=== PATIENT | female | born 1935 | race Caucasian/White ===

== ENCOUNTER 2017-11-02 13:48 | Observation (INO) | payer MEDICARE, OTHER, SELFPAY ==
[2017-11-02] VITALS (8 sets, daily range): BP systolic 122–206; BP diastolic 69–138; PULSE 85–117; RESP 12–22; TEMP 36.9–37.1; O2SAT 95–98; BMI 30.9
--- NOTE | 2017-11-02 13:49 | ED.WEAKNESS ---
HPI - Weakness General Chief complaint: Fall Stated complaint: GLF Time Seen by Provider: 11/02/17 13:49 Source: patient, family and EMS Mode of arrival: EMS History of Present Illness HPI Narrative: The patient is a 82-year-old female who lives alone. She was found all on the floor this morning by neighbor. She said she slipped out of bed last night literally she was she is trying to stand up and then her feet went out from under her she slid down the bed. She played different unknown amount of time. Her back is hurting. She has no other complaints. She is on Pradaxa and does have AFib and is currently in AFib. She denies hitting her head there is no sign of head trauma. She is able to move all of her extremities. MD Complaint: generalized weakness Related Data Home Medications Medication Instructions Recorded Confirmed acetaminophen [Tylenol Extra 500 mg PO Q6H PRN #0 01/05/16 11/02/17 Strength] diltiazem HCl [Cartia XT] 120 mg PO Q DAY #0 01/05/16 11/02/17 lutein 20 mg PO Q DAY #0 01/05/16 11/02/17 melatonin 5 mg PO HS PRN #0 01/05/16 11/02/17 oxybutynin chloride 5 mg PO BID #0 01/05/16 11/02/17 rivaroxaban [Xarelto] 20 mg PO Q DAY #0 01/05/16 11/02/17 vitamins A,C,K-aumq-eunpok 1 mg PO Q DAY #0 01/05/16 11/02/17 [PreserVision AREDS] [PROBIOTIC] 1 cap PO QDAY #0 06/11/17 Previous Rx's Medication Instructions Recorded losartan 50 mg PO QDAY #30 tab 01/07/16 acetaminophen 325 mg PO Q4HP PRN #30 tab 06/14/17 insulin aspart U-100 [Novolog 10 u SQ TIDAC #1 vial 06/14/17 PenFill U-100 Insulin] insulin glargine [Lantus U-100 25 u SQ HS #1 vial 06/14/17 Insulin] venlafaxine 150 mg PO QDAY #30 cap 06/14/17 Allergies Allergy/AdvReac Type Severity Reaction Status Date / Time Sulfa (Sulfonamide Allergy Intermediate RASH, Verified 11/02/17 13:50 Antibiotics) VOMITING [SULFA (SULFONAMIDE ANTIBIOTICS)] tramadol [TRAMADOL] AdvReac Intermediate DIZZYNESS Verified 11/02/17 13:50 Review of Systems Review of Systems All systems reviewed & are unremarkable except as noted in HPI and below Constitutional Denies daytime sleepiness, Denies difficulty sleeping, Reports fatigue and Denies frequent falls Cardiovascular Reports system reviewed and no additional complaints, except as docu, Denies syncope and Denies lightheadedness Gastrointestinal Gastrointestinal: Denies abdominal pain, Denies change in bowel habits, Denies diarrhea, Denies nausea and Denies vomiting Musculoskeletal Reports back pain, Denies muscle weakness, Denies numbness and Denies tingling Neurologic Denies syncope, Denies frequent falls, Denies numbness and Denies tingling Endocrine Reports fatigue PFSH Medical History Atrial fibrillation (Acute) Diabetes (Acute) Social History household members: none Exam Initial Vital Signs Initial Vital Signs: Vital Signs Temperature 98.7 F 11/02/17 13:50 Pulse Rate 111 H 11/02/17 13:50 Respiratory Rate 12 11/02/17 13:50 Blood Pressure 155/89 H 11/02/17 13:50 Pulse Oximetry 98 11/02/17 13:50 Const General: cooperative Nutritional Appearance: overweight Orientation: alert, awake and oriented x3 Chest Chest: normal inspection of the chest Resp Effort & Inspection: normal respiratory effort, able to speak in complete sentences, no respiratory distress and no use of accessory muscles Auscultation: clear to auscultation bilaterally, no rales, no rhonchi and no wheezes Cardio Rate: tachycardic Rhythm: abnormal rhythm irregularly irregular Heart Sounds: S1 normal and S2 normal GI Inspection: non-distended Palpation: soft, no hepatosplenomegaly, No guarding, No pulsatile mass and No tender Auscultation: normal bowel sounds Back/Spine/Pelvis Thoracic/Lumbar Spine: thoracic spinal tenderness Skin General: no rashes or lesions noted, No jaundice and No petechiae Other: Contusion noted on her right arm Neuro General: alert and awake Cranial Nerves: CN's II-XI intact bilaterally Extrem General: normal to inspection Left upper extremity: normal to inspection Right lower extremity: normal to inspection Left lower extremity: normal to inspection Course Orders Ordered: ED Orders 11/02/17 13:58 XR thoracic spine 3V Stat 11/02/17 14:00 CT head/brain wo con Stat 11/02/17 14:20 Complete Blood Count AUTO DIFF Stat Comprehensive Metabolic Panel Stat Lactate (Lactic Acid) Stat Partial Thromboplastin Time Stat Prothrombin Time INR Stat Troponin with CK Cardiac Panel Stat 11/02/17 15:59 Urinalysis and Microscopic Stat 11/02/17 16:09 Consult to Physical Therapy Evaluate & Treat 11/02/17 16:54 Education, smoking cessation ONGOING Acetaminophen (Tylenol) 325 mg PO Q4H PRN PRN Reason: Pain, Mild Diltiazem HCl (Cardizem Cd) 120 mg PO DAILY DULCE Sodium Chloride (Normal Saline 0.9%) 1,000 mls @ 85 mls/hr IV CONT DULCE Insulin Aspart (Novolog Flexpen) 10 unit SUBCUT AC DULCE Insulin Glargine (Lantus Solostar (Pen)) 25 unit SUBCUT BEDTIME DULCE Losartan Potassium (Cozaar) 50 mg PO DAILY DULCE Melatonin (Melatonin) 6 mg PO BEDTIME PRN PRN Reason: Sleep Oxybutynin (Ditropan) 5 mg PO BID DULCE Rivaroxaban (Xarelto) 20 mg PO DAILY DULCE Venlafaxine HCl (Effexor Xr) 150 mg PO DAILY DULCE Discontinued Medications Diltiazem HCl (Cardizem) 10 mg IV NOW ONE Stop: 11/02/17 14:53 Last Admin: 11/02/17 15:10 Dose: 10 mg Diltiazem HCl (Cardizem Cd) 240 mg PO NOW ONE Stop: 11/02/17 16:59 Sodium Chloride (Normal Saline 0.9%) 1,000 mls @ 1,000 mls/hr IV BOLUS ONE Stop: 11/02/17 16:25 Last Infusion: 11/02/17 16:47 Dose: 0 mls/hr Admin: 11/02/17 15:29 Dose: 1,000 mls/hr Non-Formulary Medication (Lutein [Lutein]) 20 mg PO Q DAY DULCE Non-Formulary Medication (Acetaminophen [Tylenol Extra Strength]) 500 mg PO Q6H PRN PRN Reason: Pain (Scale Score 1-3) Vital Signs - 8 hr 11/02/17 13:50 11/02/17 14:11 11/02/17 15:10 Temperature 98.7 F Pulse Rate 111 H 113 H 92 H Respiratory Rate 12 19 16 Blood Pressure 155/89 H 187/90 H Blood Pressure [Left Arm] 155/93 H 172/138 H Pulse Oximetry 98 97 98 11/02/17 15:26 11/02/17 16:07 11/02/17 17:55 Temperature 98.5 F Pulse Rate 85 117 H 106 H Respiratory Rate 22 18 Blood Pressure 198/82 H Blood Pressure [Left Arm] 122/69 H 206/106 H Pulse Oximetry 95 MDM - Weakness Lab Data Attestation: I reviewed the patient's lab results. Result diagrams: 11/02/17 14:20 11/02/17 14:20 Lab Results 11/02/17 11/02/17 11/02/17 Range/Units 14:20 14:20 14:20 WBC 11.2 H (4.5-11.0) X10^3/uL RBC 5.00 (4.0-5.2) X10^6/uL Hgb 15.3 (12.0-16.0) g/dL Hct 46.2 H (36-46) % MCV 92.3 (80-100) fL MCH 30.7 (26-34) PG MCHC 33.2 (30-36) % RDW 14.7 (11.6-14.8) % Plt Count 147 L (150-400) X10^3/uL Neut % (Auto) 87.8 H (50-75) % Lymph % (Auto) 6.0 L (25-40) % [place] % (Auto) 6.0 (3-14) % Eos % (Auto) 0.0 L (2-4) % Baso % (Auto) 0.2 (0-2) % Neut # (Auto) 9800 H (3800-8653) /uL PT 13.8 H (10.1-12.7) SECONDS INR 1.3 (0.9-1.3) APTT 31 (26.4-36.2) SECONDS Sodium 137 (137-145) mmol/L Potassium 3.9 (3.4-5.1) mmol/L Chloride 92 L (98-107) mmol/L Carbon Dioxide 30 (22-32) mmol/L BUN 18 H (7-17) mg/dL Creatinine 0.60 (0.52-1.04) mg/dL Estimated GFR > 60.0 (>60) mL/min BUN/Creatinine Ratio 30.0 H (6-22) Glucose 454 H (80-110) mg/dL Lactate (0.7-2.1) mmol/L Calcium 9.9 (8.4-10.2) mg/dL Total Bilirubin 1.2 (0.2-1.3) mg/dL AST 84 H (14-36) IU/L ALT 121 H (9-52) IU/L Alkaline Phosphatase 106 (38-126) U/L Total Creatine Kinase 349 H (30-135) U/L CK-MB (CK-2) 2.27 (<2.37) ng/mL CK-MB (CK-2) Rel Index 0.7 L (1.5-5.0) % Troponin I 0.014 (0.01-0.034) ng/mL Total Protein 7.7 (6.3-8.2) g/dL Albumin 4.6 (3.5-5.0) g/dL Globulin 3.1 (1.7-4.1) g/dL Albumin/Globulin Ratio 1.5 (1.0-2.8) Urine Color Urine Appearance Urine pH (4.5-8.0) Ur Specific Sisters (1.000-1.035) Urine Protein (Negative) Urine Glucose (UA) (Normal) g/dL Urine Ketones (NEGATIVE) Urine Occult Blood (Negative) Urine Nitrate (Negative) Urine Bilirubin (NEGATIVE) Urine Urobilinogen (0.2) E.U./dL Ur Leukocyte Esterase (NEGATIVE) Urine RBC (0-5/HPF) Urine WBC (0-5/HPF) Ur Squamous Epith Cells Urine Bacteria (None) Ur Culture Indicated? Micro UA Comment 11/02/17 11/02/17 Range/Units 14:20 15:59 WBC (4.5-11.0) X10^3/uL RBC (4.0-5.2) X10^6/uL Hgb (12.0-16.0) g/dL Hct (36-46) % MCV (80-100) fL MCH (26-34) PG MCHC (30-36) % RDW (11.6-14.8) % Plt Count (150-400) X10^3/uL Neut % (Auto) (50-75) % Lymph % (Auto) (25-40) % [place] % (Auto) (3-14) % Eos % (Auto) (2-4) % Baso % (Auto) (0-2) % Neut # (Auto) (1073-0819) /uL PT (10.1-12.7) SECONDS INR (0.9-1.3) APTT (26.4-36.2) SECONDS Sodium (137-145) mmol/L Potassium (3.4-5.1) mmol/L Chloride (98-107) mmol/L Carbon Dioxide (22-32) mmol/L BUN (7-17) mg/dL Creatinine (0.52-1.04) mg/dL Estimated GFR (>60) mL/min BUN/Creatinine Ratio (6-22) Glucose (80-110) mg/dL Lactate 1.9 (0.7-2.1) mmol/L Calcium (8.4-10.2) mg/dL Total Bilirubin (0.2-1.3) mg/dL AST (14-36) IU/L ALT (9-52) IU/L Alkaline Phosphatase (38-126) U/L Total Creatine Kinase (30-135) U/L CK-MB (CK-2) (<2.37) ng/mL CK-MB (CK-2) Rel Index (1.5-5.0) % Troponin I (0.01-0.034) ng/mL Total Protein (6.3-8.2) g/dL Albumin (3.5-5.0) g/dL Globulin (1.7-4.1) g/dL Albumin/Globulin Ratio (1.0-2.8) Urine Color Yellow Urine Appearance Clear Urine pH 6.0 (4.5-8.0) Ur Specific Sisters 1.010 (1.000-1.035) Urine Protein 1+ H (Negative) Urine Glucose (UA) 2+ (Normal) g/dL Urine Ketones 2+ H (NEGATIVE) Urine Occult Blood 3+ H (Negative) Urine Nitrate Negative (Negative) Urine Bilirubin Negative (NEGATIVE) Urine Urobilinogen 0.2 (0.2) E.U./dL Ur Leukocyte Esterase Negative (NEGATIVE) Urine RBC 10-30/hpf H (0-5/HPF) Urine WBC 0-1/hpf (0-5/HPF) Ur Squamous Epith Cells 0-1 /hpf Urine Bacteria None seen (None) Ur Culture Indicated? Cult not indicated Micro UA Comment Not Reportable Imaging Data CT scan - head: Radiologist's impression: PROCEDURE: CT HEAD/BRAIN WO CON INDICATIONS: found down on Xarelto TECHNIQUE: Noncontrast 4.5 mm thick angled axial sections acquired from the foramen magnum to the vertex, with coronal and sagittal reformats. For radiation dose reduction, the following was used: automated exposure control, adjustment of mA and/or kV according to patient size. COMPARISON: [facility], CT, HEAD WITHOUT CONTRAST, 06/11/2017, 14:40. [facility], CT, HEAD WITHOUT CONTRAST, 03/22/2016, 20:13. [facility], MR, STROKE PROTOCOL, 01/06/2016, 12:57. FINDINGS: Image quality: Excellent. CSF spaces: Basal cisterns are patent. No extra-axial fluid collections. The ventricles are symmetric in size and shape. Brain: No intracranial bleeds or masses. There is cerebral volume loss for age, with resultant ventricular and sulcal prominence. There are periventricular and deep white matter chronic small vessel ischemic changes. Old basal ganglia small lacunar infarcts versus perivascular spaces are stable. There is intracranial internal carotid artery and vertebral artery atherosclerosis. Skull and face: Calvarium and visualized facial bones appear intact, without suspicious lesions. Sinuses: Visualized sinuses and mastoids are clear. IMPRESSION: No acute intracranial disease process. No intracranial hemorrhage. Dictated by: Yanique Schulte MD, PhD on 11/02/2017 at 14:58 thoracic spine: Radiologist's impression: ECG Data Attestation: I personally reviewed and interpreted this ECG as follows: Prior ECG tracings: available for review Interpretation: a.fib rate 111 MDM Narrative Medical decision making narrative: Patient's [id number] is there at bedside now. She says the patient actually hallucinating which she is she is seeing green things on the ceiling. She says this is not her normal mental status. She remains in AFib but her rate is much better controlled after diltiazem. She is evaluated by physical therapy confirming that she is extremely weak. She lives alone they have [place] [facility] however no range meds have been made. Family understands that she will not be getting into a [place] [facility] home even staying in the hospital 1 night. Her labs are within normal limits. No sign of rhabdomyolysis or infection. Dr. Alva has accepted to observation. Discharge Plan Departure Patient Disposition: Admitted as Observation Clinical Impression: Acute metabolic encephalopathy, Atrial fibrillation Discharge Date/Time: 11/02/17 17:48 Interventions: ED Discharge Assessment Last Done: 11/02/17 17:48 Admit Date/Time: 11/02/17 16:48 Admit Provider: Sudhir Alva
--- NOTE | 2017-11-02 13:58 | DI.RAD.S_ITS ---
PROCEDURE: XR THORACIC SPINE 3V INDICATIONS: Pain TECHNIQUE: 3 views of the thoracic spine were acquired. COMPARISON: None. FINDINGS: Bones: No fractures or dislocations. No suspicious bony lesions. 12 pairs of ribs are noted, and appear intact where visualized. Spine degenerative disease and facet arthropathy noted. Soft tissues: No paravertebral stripe thickening. Cholecystectomy clips. IMPRESSION: No fracture. No acute osseous lesion. If there are persistent symptoms or continued clinical suspicion for pathology, then MRI should be considered for further evaluation. Dictated by: Yanique Schulte MD, PhD on 11/02/2017 at 14:57 Approved by: Yanique Schulte MD, PhD on 11/02/2017 at 14:57
--- NOTE | 2017-11-02 14:00 | DI.CT.S_ITS ---
PROCEDURE: CT HEAD/BRAIN WO CON INDICATIONS: found down on Xarelto TECHNIQUE: Noncontrast 4.5 mm thick angled axial sections acquired from the foramen magnum to the vertex, with coronal and sagittal reformats. For radiation dose reduction, the following was used: automated exposure control, adjustment of mA and/or kV according to patient size. COMPARISON: [facility], CT, HEAD WITHOUT CONTRAST, 06/11/2017, 14:40. [facility], CT, HEAD WITHOUT CONTRAST, 03/22/2016, 20:13. [facility], MR, STROKE PROTOCOL, 01/06/2016, 12:57. FINDINGS: Image quality: Excellent. CSF spaces: Basal cisterns are patent. No extra-axial fluid collections. The ventricles are symmetric in size and shape. Brain: No intracranial bleeds or masses. There is cerebral volume loss for age, with resultant ventricular and sulcal prominence. There are periventricular and deep white matter chronic small vessel ischemic changes. Old basal ganglia small lacunar infarcts versus perivascular spaces are stable. There is intracranial internal carotid artery and vertebral artery atherosclerosis. Skull and face: Calvarium and visualized facial bones appear intact, without suspicious lesions. Sinuses: Visualized sinuses and mastoids are clear. IMPRESSION: No acute intracranial disease process. No intracranial hemorrhage. Dictated by: Yanique Schulte MD, PhD on 11/02/2017 at 14:58 Approved by: Yanique Schulte MD, PhD on 11/02/2017 at 15:00
[2017-11-02 14:26] LABS: Add Manual Diff / Slide Review NO; Basophils Percent Auto 0.2 % (0-2); Hematocrit 46.2 % (36-46); Hemoglobin 15.3 g/dL (12.0-16.0); Mean Corpuscular HGB Conc 33.2 % (30-36); Mean Corpuscular Hemoglobin 30.7 PG (26-34); Mean Corpuscular Volume 92.3 fL (80-100); Neutrophils Absolute Auto 9800 /uL (3000-5900); Neutrophils Percent Auto 87.8 % (50-75); Platelet Count 147 X10^3/uL (150-400); Red Cell Distribution Width 14.7 % (11.6-14.8); White Blood Cell Count 11.2 X10^3/uL (4.5-11.0)
[2017-11-02 14:32] LABS: INR 1.3 (0.9-1.3); Prothrombin Time 13.8 SECONDS (10.1-12.7)
[2017-11-02 14:35] LABS: Lactate (Lactic Acid) 1.9 mmol/L (0.7-2.1); PTT Partial Thromboplastin Tim 31 SECONDS (26.4-36.2)
[2017-11-02 14:37] LABS: Alanine Aminotransferase 121 IU/L (9-52); Albumin 4.6 g/dL (3.5-5.0); Albumin Globulin Ratio 1.5 (1.0-2.8); Alkaline Phosphatase 106 U/L (38-126); Aspartate Aminotransferase 84 IU/L (14-36); Bilirubin Total 1.2 mg/dL (0.2-1.3); Blood Urea Nitrogen 18 mg/dL (7-17); Calcium 9.9 mg/dL (8.4-10.2); Carbon Dioxide 30 mmol/L (22-32); Chloride 92 mmol/L (98-107); Creatine Kinase 349 U/L (30-135); Estimated Glomerular Filt Rate > 60.0 mL/min (>60); Globulin 3.1 g/dL (1.7-4.1); Glucose 454 mg/dL (80-110); HEMOLYSIS 15 (0-50); Potassium 3.9 mmol/L (3.4-5.1); Sodium 137 mmol/L (137-145); Total Protein 7.7 g/dL (6.3-8.2)
[2017-11-02 14:48] LABS: Troponin I 0.014 ng/mL (0.01-0.034)
[2017-11-02 14:52] LABS: CKMB % Relative Index 0.7 % (1.5-5.0); Creatine Kinase MB 2.27 ng/mL (<2.37)
[2017-11-02] MEDS: dilTIAZem 25 MG/5 ML SDV 10 MG IV (15:10)
[2017-11-02] MEDS: SODIUM CHLORIDE 0.9% 1,000 ML 1000 ML IV (15:29)
[2017-11-02 16:02] LABS: Bacteria Urine None Seen
[2017-11-02 16:04] LABS: Appearance Urine UA CLEAR; Bilirubin Urine UA NEGATIVE (NEGATIVE); Color Urine UA YELLOW; Glucose Urine UA 2+ g/dL (Normal); Ketones Urine UA 2+ (NEGATIVE); Leukocyte Esterase Urine UA NEGATIVE (NEGATIVE); Nitrite Urine UA Negative (Negative); Occult Blood Urine UA 3+ (Negative); Protein Urine UA 1+ (Negative); Urobilinogen Urine UA 0.2 E.U./dL (0.2)
[2017-11-02 16:10] LABS: Culture Indicated Urine Cult Not Indicated; RBC Urine 10-30/HPF (0-5/HPF); Squamous Epithelial Cell Urine 0-1 /HPF; WBC Urine 0-1/HPF (0-5/HPF)
--- NOTE | 2017-11-02 17:02 | PT.IIE ---
Physical Therapy Inpatient Evaluation/Re-Eval M1 PT/OT-IP Prior Functional Status Start: 11/02/17 16:49 Freq: Status: Active Protocol: Document 11/02/17 16:49 AB (Rec: 11/02/17 17:02 AB [id number]) Medical Review Prior Functional Status Medical History Reviewed Yes Mobility and Gait per daughter, pt is somewhat independent with mobility using a 4WW for ambulation. stated that pt needs help but lives alone is an independent living facility. Social History Household Members none Living Arrangements Apartment/Condo Number of Floors (Floors) One Floor Number of Stairs To Enter/Railing? pt lives at [facility] independent living facility without steps to enter. 2 meals are provided but pt fixes her own breakfast. Home Environment Walk in Shower Home Equipment Four Wheel Walker Raised Toilet Seat w/Armrests Shower Seat with Backrest Employment Status Retired Additional Social History Comment daughter stated that she calls her to check on her but does not come to her apartment that often M2 PT-IP Current Condition Start: 11/02/17 16:49 Freq: Status: Active Protocol: Document 11/02/17 16:49 AB (Rec: 11/02/17 17:02 AB [id number]) Physical Therapy Current Condition Current Condition Evaluation Date 11/02/17 Treatment Diagnosis GLF Onset Date 11/02/17 Precautions Other Precautions falls M3 PT-IP Subjective Start: 11/02/17 16:49 Freq: Status: Active Protocol: Document 11/02/17 16:49 AB (Rec: 11/02/17 17:02 AB [id number]) Subjective Physical Therapy Visit Type Type Initial Evaluation Visit Start Time 16:23 Visit Stop Time 16:50 Total Visit Minutes 28 Number of LITERACY COACH Visits 0 Physical Therapy Visit Comments Patient Comments I feel shaky Patient/Caregiver Goals stated that pt cannot go home by herself Therapy Pain Assessment Pain Present Pain Present Denied Pain M4 PT-IP Mobility and Gait Start: 11/02/17 16:49 Freq: Status: Active Protocol: Document 11/02/17 16:49 AB (Rec: 11/02/17 17:02 AB [id number]) PT-Bed Mobility Assessment Supine to Sit Supine to Sit Maximum Assistance Sit to Supine Sit to Supine Maximum Assistance 2 Person Assistance Scooting Scooting to Edge of Bed Maximum Assistance Scooting Up and Down in Bed Maximum Assistance Bed Transfer Assessment Comments Bed Transfer Comments pt required mod A for sit to stand but max A for standing to sitting for controlled descent Gait Assessment Comments Gait Comments attempted ambulation but pt unable to complete. instructed pt to do marching in place and pt was able to lift RLE but with attempting to lift LLE, pt with increase body shaking and needed to sit back down requiring max A for controlled descent. PT-Balance Assessment Sitting Balance and Reactions Static Sitting Balance Ability Good Dynamic Sitting Balance Ability Good Standing Balance and Reactions Static Standing Balance Ability Fair Dynamic Standing Balance Ability Poor M5 PT-IP Objective Assessments Start: 11/02/17 16:49 Freq: Status: Active Protocol: Document 11/02/17 16:49 AB (Rec: 11/02/17 17:02 AB [id number]) Orientation Orientation/Cognition Level of Alertness Alert Orientation Name Year Safety Awareness Decreased Safety Awareness Memory Description Short Term Impaired Snf Impaired Strength Lower Extremity Strength Assessment Bilaterally Impaired Hip 4-/5 Knee 4-/5 Ankle 4-/5 M6 PT-IP Treatment Start: 11/02/17 16:49 Freq: Status: Active Protocol: Document 11/02/17 17:02 AB (Rec: 11/02/17 17:02 AB [id number]) Physical Therapy Treatment Education Education Provided Safety M7 PT-IP Assessment and Plan Start: 11/02/17 16:49 Freq: Status: Active Protocol: Document 11/02/17 16:49 AB (Rec: 11/02/17 17:02 AB [id number]) PT Summary Assessment and Plan Potential Rehabilitation Potential Fair Status of Condition at Evaluation Evolving Summary Impairments Pain ROM Strength Balance Coordination Sensation Tone Cognition Bed Mobility Transfers Gait Activity Tolerance Assessment Summary PT eval received from ER to assess safe d/c home. pt at this time is unable to ambulate and requires max A for mobility. pt is not safe to go home at this time. Goals Bed Mobility Goal Standby Assistance Transfer Goal Standby Assistance Gait Goal Standby Assistance Frequency of Treatment Frequency Of Treatment Twice a Day Treatment Plan Physical Therapy Treatment Plan Bed Mobility Training Transfer Training Gait Training Therapeutic Exercise Balance Retraining Post Op Education Discharge Planning Hot or Cold Pack Neuromuscular Re-ed Coordination Retraining Manual Therapy Recommendations To Nursing Amount of Assist Needed 2 Person Assist Discharge Recommendations PT Discharge Recommendations SNF Rehab Provider Visit Care Team Role Provider Type Ingrid Mcguire DO Emergency Provider Physician Specialty: Emergency Medicine Sudhir Alva MD Admit Provider Physician Attending Provider Specialty: Internal Medicine
--- NOTE | 2017-11-02 18:23 | ED_ITS ---
HPI - Weakness General Chief complaint: Fall Stated complaint: GLF Time Seen by Provider: 11/02/17 13:49 Source: patient, family and EMS Mode of arrival: EMS History of Present Illness HPI Narrative: The patient is a 82-year-old female who lives alone. She was found all on the floor this morning by neighbor. She said she slipped out of bed last night literally she was she is trying to stand up and then her feet went out from under her she slid down the bed. She played different unknown amount of time. Her back is hurting. She has no other complaints. She is on Pradaxa and does have AFib and is currently in AFib. She denies hitting her head there is no sign of head trauma. She is able to move all of her extremities. MD Complaint: generalized weakness Related Data Home Medications Medication Instructions Recorded Confirmed acetaminophen [Tylenol Extra 500 mg PO Q6H PRN #0 01/05/16 11/02/17 Strength] diltiazem HCl [Cartia XT] 120 mg PO Q DAY #0 01/05/16 11/02/17 lutein 20 mg PO Q DAY #0 01/05/16 11/02/17 melatonin 5 mg PO HS PRN #0 01/05/16 11/02/17 oxybutynin chloride 5 mg PO BID #0 01/05/16 11/02/17 rivaroxaban [Xarelto] 20 mg PO Q DAY #0 01/05/16 11/02/17 vitamins A,C,Z-yleg-ydythl 1 mg PO Q DAY #0 01/05/16 11/02/17 [PreserVision AREDS] [PROBIOTIC] 1 cap PO QDAY #0 06/11/17 Previous Rx's Medication Instructions Recorded losartan 50 mg PO QDAY #30 tab 01/07/16 acetaminophen 325 mg PO Q4HP PRN #30 tab 06/14/17 insulin aspart U-100 [Novolog 10 u SQ TIDAC #1 vial 06/14/17 PenFill U-100 Insulin] insulin glargine [Lantus U-100 25 u SQ HS #1 vial 06/14/17 Insulin] venlafaxine 150 mg PO QDAY #30 cap 06/14/17 Allergies Allergy/AdvReac Type Severity Reaction Status Date / Time Sulfa (Sulfonamide Allergy Intermediate RASH, Verified 11/02/17 13:50 Antibiotics) VOMITING [SULFA (SULFONAMIDE ANTIBIOTICS)] tramadol [TRAMADOL] AdvReac Intermediate DIZZYNESS Verified 11/02/17 13:50 Review of Systems Review of Systems All systems reviewed & are unremarkable except as noted in HPI and below Constitutional Denies daytime sleepiness, Denies difficulty sleeping, Reports fatigue and Denies frequent falls Cardiovascular Reports system reviewed and no additional complaints, except as docu, Denies syncope and Denies lightheadedness Gastrointestinal Gastrointestinal: Denies abdominal pain, Denies change in bowel habits, Denies diarrhea, Denies nausea and Denies vomiting Musculoskeletal Reports back pain, Denies muscle weakness, Denies numbness and Denies tingling Neurologic Denies syncope, Denies frequent falls, Denies numbness and Denies tingling Endocrine Reports fatigue PFSH Medical History Atrial fibrillation (Acute) Diabetes (Acute) Social History household members: none Exam Initial Vital Signs Initial Vital Signs: Vital Signs Temperature 98.7 F 11/02/17 13:50 Pulse Rate 111 H 11/02/17 13:50 Respiratory Rate 12 11/02/17 13:50 Blood Pressure 155/89 H 11/02/17 13:50 Pulse Oximetry 98 11/02/17 13:50 Const General: cooperative Nutritional Appearance: overweight Orientation: alert, awake and oriented x3 Chest Chest: normal inspection of the chest Resp Effort & Inspection: normal respiratory effort, able to speak in complete sentences, no respiratory distress and no use of accessory muscles Auscultation: clear to auscultation bilaterally, no rales, no rhonchi and no wheezes Cardio Rate: tachycardic Rhythm: abnormal rhythm irregularly irregular Heart Sounds: S1 normal and S2 normal GI Inspection: non-distended Palpation: soft, no hepatosplenomegaly, No guarding, No pulsatile mass and No tender Auscultation: normal bowel sounds Back/Spine/Pelvis Thoracic/Lumbar Spine: thoracic spinal tenderness Skin General: no rashes or lesions noted, No jaundice and No petechiae Other: Contusion noted on her right arm Neuro General: alert and awake Cranial Nerves: CN's II-XI intact bilaterally Extrem General: normal to inspection Left upper extremity: normal to inspection Right lower extremity: normal to inspection Left lower extremity: normal to inspection Course Orders Ordered: ED Orders 11/02/17 13:58 XR thoracic spine 3V Stat 11/02/17 14:00 CT head/brain wo con Stat 11/02/17 14:20 Complete Blood Count AUTO DIFF Stat Comprehensive Metabolic Panel Stat Lactate (Lactic Acid) Stat Partial Thromboplastin Time Stat Prothrombin Time INR Stat Troponin with CK Cardiac Panel Stat 11/02/17 15:59 Urinalysis and Microscopic Stat 11/02/17 16:09 Consult to Physical Therapy Evaluate & Treat 11/02/17 16:54 Education, smoking cessation ONGOING Acetaminophen (Tylenol) 325 mg PO Q4H PRN PRN Reason: Pain, Mild Diltiazem HCl (Cardizem Cd) 120 mg PO DAILY DULCE Sodium Chloride (Normal Saline 0.9%) 1,000 mls @ 85 mls/hr IV CONT DULCE Insulin Aspart (Novolog Flexpen) 10 unit SUBCUT AC DULCE Insulin Glargine (Lantus Solostar (Pen)) 25 unit SUBCUT BEDTIME DULCE Losartan Potassium (Cozaar) 50 mg PO DAILY DULCE Melatonin (Melatonin) 6 mg PO BEDTIME PRN PRN Reason: Sleep Oxybutynin (Ditropan) 5 mg PO BID DULCE Rivaroxaban (Xarelto) 20 mg PO DAILY DULCE Venlafaxine HCl (Effexor Xr) 150 mg PO DAILY DULCE Discontinued Medications Diltiazem HCl (Cardizem) 10 mg IV NOW ONE Stop: 11/02/17 14:53 Last Admin: 11/02/17 15:10 Dose: 10 mg Diltiazem HCl (Cardizem Cd) 240 mg PO NOW ONE Stop: 11/02/17 16:59 Sodium Chloride (Normal Saline 0.9%) 1,000 mls @ 1,000 mls/hr IV BOLUS ONE Stop: 11/02/17 16:25 Last Infusion: 11/02/17 16:47 Dose: 0 mls/hr Admin: 11/02/17 15:29 Dose: 1,000 mls/hr Non-Formulary Medication (Lutein [Lutein]) 20 mg PO Q DAY DULCE Non-Formulary Medication (Acetaminophen [Tylenol Extra Strength]) 500 mg PO Q6H PRN PRN Reason: Pain (Scale Score 1-3) Vital Signs - 8 hr 11/02/17 13:50 11/02/17 14:11 11/02/17 15:10 Temperature 98.7 F Pulse Rate 111 H 113 H 92 H Respiratory Rate 12 19 16 Blood Pressure 155/89 H 187/90 H Blood Pressure [Left Arm] 155/93 H 172/138 H Pulse Oximetry 98 97 98 11/02/17 15:26 11/02/17 16:07 11/02/17 17:55 Temperature 98.5 F Pulse Rate 85 117 H 106 H Respiratory Rate 22 18 Blood Pressure 198/82 H Blood Pressure [Left Arm] 122/69 H 206/106 H Pulse Oximetry 95 MDM - Weakness Lab Data Attestation: I reviewed the patient's lab results. Result diagrams: 11/02/17 14:20 11/02/17 14:20 Lab Results 11/02/17 11/02/17 11/02/17 Range/Units 14:20 14:20 14:20 WBC 11.2 H (4.5-11.0) X10^3/uL RBC 5.00 (4.0-5.2) X10^6/uL Hgb 15.3 (12.0-16.0) g/dL Hct 46.2 H (36-46) % MCV 92.3 (80-100) fL MCH 30.7 (26-34) PG MCHC 33.2 (30-36) % RDW 14.7 (11.6-14.8) % Plt Count 147 L (150-400) X10^3/uL Neut % (Auto) 87.8 H (50-75) % Lymph % (Auto) 6.0 L (25-40) % [place] % (Auto) 6.0 (3-14) % Eos % (Auto) 0.0 L (2-4) % Baso % (Auto) 0.2 (0-2) % Neut # (Auto) 9800 H (3933-7676) /uL PT 13.8 H (10.1-12.7) SECONDS INR 1.3 (0.9-1.3) APTT 31 (26.4-36.2) SECONDS Sodium 137 (137-145) mmol/L Potassium 3.9 (3.4-5.1) mmol/L Chloride 92 L (98-107) mmol/L Carbon Dioxide 30 (22-32) mmol/L BUN 18 H (7-17) mg/dL Creatinine 0.60 (0.52-1.04) mg/dL Estimated GFR > 60.0 (>60) mL/min BUN/Creatinine Ratio 30.0 H (6-22) Glucose 454 H (80-110) mg/dL Lactate (0.7-2.1) mmol/L Calcium 9.9 (8.4-10.2) mg/dL Total Bilirubin 1.2 (0.2-1.3) mg/dL AST 84 H (14-36) IU/L ALT 121 H (9-52) IU/L Alkaline Phosphatase 106 (38-126) U/L Total Creatine Kinase 349 H (30-135) U/L CK-MB (CK-2) 2.27 (<2.37) ng/mL CK-MB (CK-2) Rel Index 0.7 L (1.5-5.0) % Troponin I 0.014 (0.01-0.034) ng/mL Total Protein 7.7 (6.3-8.2) g/dL Albumin 4.6 (3.5-5.0) g/dL Globulin 3.1 (1.7-4.1) g/dL Albumin/Globulin Ratio 1.5 (1.0-2.8) Urine Color Urine Appearance Urine pH (4.5-8.0) Ur Specific [place] (1.000-1.035) Urine Protein (Negative) Urine Glucose (UA) (Normal) g/dL Urine Ketones (NEGATIVE) Urine Occult Blood (Negative) Urine Nitrate (Negative) Urine Bilirubin (NEGATIVE) Urine Urobilinogen (0.2) E.U./dL Ur Leukocyte Esterase (NEGATIVE) Urine RBC (0-5/HPF) Urine WBC (0-5/HPF) Ur Squamous Epith Cells Urine Bacteria (None) Ur Culture Indicated? Micro UA Comment 11/02/17 11/02/17 Range/Units 14:20 15:59 WBC (4.5-11.0) X10^3/uL RBC (4.0-5.2) X10^6/uL Hgb (12.0-16.0) g/dL Hct (36-46) % MCV (80-100) fL MCH (26-34) PG MCHC (30-36) % RDW (11.6-14.8) % Plt Count (150-400) X10^3/uL Neut % (Auto) (50-75) % Lymph % (Auto) (25-40) % [place] % (Auto) (3-14) % Eos % (Auto) (2-4) % Baso % (Auto) (0-2) % Neut # (Auto) (4936-5559) /uL PT (10.1-12.7) SECONDS INR (0.9-1.3) APTT (26.4-36.2) SECONDS Sodium (137-145) mmol/L Potassium (3.4-5.1) mmol/L Chloride (98-107) mmol/L Carbon Dioxide (22-32) mmol/L BUN (7-17) mg/dL Creatinine (0.52-1.04) mg/dL Estimated GFR (>60) mL/min BUN/Creatinine Ratio (6-22) Glucose (80-110) mg/dL Lactate 1.9 (0.7-2.1) mmol/L Calcium (8.4-10.2) mg/dL Total Bilirubin (0.2-1.3) mg/dL AST (14-36) IU/L ALT (9-52) IU/L Alkaline Phosphatase (38-126) U/L Total Creatine Kinase (30-135) U/L CK-MB (CK-2) (<2.37) ng/mL CK-MB (CK-2) Rel Index (1.5-5.0) % Troponin I (0.01-0.034) ng/mL Total Protein (6.3-8.2) g/dL Albumin (3.5-5.0) g/dL Globulin (1.7-4.1) g/dL Albumin/Globulin Ratio (1.0-2.8) Urine Color Yellow Urine Appearance Clear Urine pH 6.0 (4.5-8.0) Ur Specific [place] 1.010 (1.000-1.035) Urine Protein 1+ H (Negative) Urine Glucose (UA) 2+ (Normal) g/dL Urine Ketones 2+ H (NEGATIVE) Urine Occult Blood 3+ H (Negative) Urine Nitrate Negative (Negative) Urine Bilirubin Negative (NEGATIVE) Urine Urobilinogen 0.2 (0.2) E.U./dL Ur Leukocyte Esterase Negative (NEGATIVE) Urine RBC 10-30/hpf H (0-5/HPF) Urine WBC 0-1/hpf (0-5/HPF) Ur Squamous Epith Cells 0-1 /hpf Urine Bacteria None seen (None) Ur Culture Indicated? Cult not indicated Micro UA Comment Not Reportable Imaging Data CT scan - head: Radiologist's impression: PROCEDURE: CT HEAD/BRAIN WO CON INDICATIONS: found down on Xarelto TECHNIQUE: Noncontrast 4.5 mm thick angled axial sections acquired from the foramen magnum to the vertex, with coronal and sagittal reformats. For radiation dose reduction, the following was used: automated exposure control, adjustment of mA and/or kV according to patient size. COMPARISON: [facility], CT, HEAD WITHOUT CONTRAST, 06/11/2017, 14:40. [facility], CT, HEAD WITHOUT CONTRAST, 03/22/2016, 20:13. [facility], MR, STROKE PROTOCOL, 01/06/2016, 12:57. FINDINGS: Image quality: Excellent. CSF spaces: Basal cisterns are patent. No extra-axial fluid collections. The ventricles are symmetric in size and shape. Brain: No intracranial bleeds or masses. There is cerebral volume loss for age , with resultant ventricular and sulcal prominence. There are periventricular and deep white matter chronic small vessel ischemic changes. Old basal ganglia small lacunar infarcts versus perivascular spaces are stable. There is intracranial internal carotid artery and vertebral artery atherosclerosis. Skull and face: Calvarium and visualized facial bones appear intact, without suspicious lesions. Sinuses: Visualized sinuses and mastoids are clear. IMPRESSION: No acute intracranial disease process. No intracranial hemorrhage. Dictated by: Yanique Schulte MD, PhD on 11/02/2017 at 14:58 thoracic spine: Radiologist's impression: ECG Data Attestation: I personally reviewed and interpreted this ECG as follows: Prior ECG tracings: available for review Interpretation: a.fib rate 111 MDM Narrative Medical decision making narrative: Patient's [id number] is there at bedside now. She says the patient actually hallucinating which she is she is seeing green things on the ceiling. She says this is not her normal mental status. She remains in AFib but her rate is much better controlled after diltiazem. She is evaluated by physical therapy confirming that she is extremely weak. She lives alone they have been trying to get her into [facility] however no range meds have been made. Family understands that she will not be getting into a [facility]p home even staying in the hospital 1 night. Her labs are within normal limits. No sign of rhabdomyolysis or infection. Dr. Alva has accepted to observation. Discharge Plan Departure Patient Disposition: Admitted as Observation Clinical Impression: Acute metabolic encephalopathy, Atrial fibrillation Discharge Date/Time: 11/02/17 17:48 Interventions: ED Discharge Assessment Last Done: 11/02/17 17:48 Admit Date/Time: 11/02/17 16:48 Admit Provider: Sudhir Alva
[2017-11-02] MEDS: VENLAFAXINE ER 75 MG CAP 150 MG PO (19:00)
[2017-11-02] MEDS: RIVAROXABAN 10 MG TABLET 20 MG PO (19:00)
[2017-11-02] MEDS: INSULIN ASPART 100 UNIT/ML INSULN PEN 10 UNIT SUBCUT (19:00)
[2017-11-02] MEDS: LOSARTAN 50 MG TABLET PO (19:00)
[2017-11-02] MEDS: dilTIAZem CD 240 MG CAP PO (19:00)
--- NOTE | 2017-11-02 20:38 | PC.NURSE ---
1814- Pt arrived to room 219 from ED via stretcher. Pt resides at [facility], where pt had a GLF next ot pt's bed. Pt sat unattended for a significant time, before found and brought to ED. Wearing brief for inc of bladder. 2 assist with gait belt and FWW to [facility] to have BM. Pt demonstrated unsteady gait and generalized weakness. A to self, family member, age, and . At times will verbalize seeing individual and other objects that aren't there. Telemetry in place for Hx A-Fib. 95% RA, LS clear/dim, denies SOB. Denies nausea, BT+, flatus+, XL BM this shift. Right elbow with contusion and Lg purple bruise, right middle finger with bruise, bilat knees arthritis. Denies pain at this time. L wrist IV SL. Pt takes insulin and lantus, CBG ashs. Drinking fluids. Family reports pt has fallen several times this year, and would like a case management eval to place pt in an assisted living residence. Call light in reach and bed alarm.
[2017-11-02] MEDS: SODIUM CHLORIDE 0.9% 1,000 ML 85 ML IV (21:32)
[2017-11-02] MEDS: INSULIN GLARGINE 100 UNIT/ML 3ML PEN 25 UNIT SUBCUT (21:38)
[2017-11-02] MEDS: OXYBUTYNIN 5 MG TABLET PO (21:39)
[2017-11-03] VITALS (8 sets, daily range): BP systolic 122–151; BP diastolic 61–74; PULSE 66–92; RESP 12–22; TEMP 36.5–37.5; O2SAT 91–97
--- NOTE | 2017-11-03 04:29 | PC.NURSE ---
Assumed care of pt form outgoing shift at 2300 6-16. Pt asleep, arouses to voice. Pt denies pain. compliant with nursing assessments. Pt pleasant, but confused. Pt side lyig states she is comfortable. denies need for blankets etc. updated on plan of care, pt states OK but I don't believe she entirely knows what is going on. evening shift reported that she was seeing things and did not know where she was etc. Pt bed in lowest, locked position. Pt bed alarm on, side rails upx3. belongings and call light within reach. will continue to monitor pt for safety.
--- NOTE | 2017-11-03 06:18 | PM.HP.1 ---
History of Present Illness Date Patient Seen: 11/03/17 Time Patient Seen: 06:18 Chief complaint: GLF Narrative: 82-year-old female fell on the floor and was unable to get back up she laid there overnight. She injured her elbow has some back pain no other complaints. She was just too weak to get back up she states. Patient History Medical History Atrial fibrillation (Chronic) Depression with anxiety (Chronic) Diabetes (Chronic) Hyperlipidemia (Chronic) Hypertension (Chronic) Hypothyroid (Chronic) Peripheral neuropathy (Chronic) Cholecystectomy planned (Resolved) FH: total abdominal hysterectomy and bilateral salpingo-oophorectomy (Resolved) Family & Social History Social History: household members none Prior Living Arrangements Apartment/Condo Safety & Behavioral: Feels Safe in Current Yes Environment Been Physically Hurt or No Threatened By a Person Suicidal Ideation Description None Suicide Plan Description No Plan Tobacco & Substance use: Smoking Status Never smoker alcohol intake never Substance Use Type does not use Meds Home Medications Medication Instructions Recorded Confirmed Type acetaminophen [Tylenol Extra 500 mg PO Q6H PRN #0 01/05/16 11/02/17 History Strength] diltiazem HCl [Cartia XT] 120 mg PO Q DAY #0 01/05/16 11/02/17 History lutein 20 mg PO Q DAY #0 01/05/16 11/02/17 History melatonin 5 mg PO HS PRN #0 01/05/16 11/02/17 History oxybutynin chloride 5 mg PO BID #0 01/05/16 11/02/17 History rivaroxaban [Xarelto] 20 mg PO Q DAY #0 01/05/16 11/02/17 History vitamins A,C,X-smog-piyjoj 1 mg PO Q DAY #0 01/05/16 11/02/17 History [PreserVision AREDS] losartan 50 mg PO QDAY #30 tab 01/07/16 11/02/17 Rx [PROBIOTIC] 1 cap PO QDAY #0 06/11/17 11/02/17 History acetaminophen 325 mg PO Q4HP PRN #30 tab 06/14/17 11/02/17 Rx insulin aspart U-100 [Novolog 10 u SQ TIDAC #1 vial 06/14/17 11/02/17 Rx PenFill U-100 Insulin] insulin glargine [Lantus U-100 25 u SQ HS #1 vial 06/14/17 11/02/17 Rx Insulin] venlafaxine 150 mg PO QDAY #30 cap 06/14/17 11/02/17 Rx Allergies Allergy/AdvReac Type Severity Reaction Status Date / Time Sulfa (Sulfonamide Allergy Intermediate RASH, Verified 11/02/17 13:50 Antibiotics) VOMITING [SULFA (SULFONAMIDE ANTIBIOTICS)] tramadol [TRAMADOL] AdvReac Intermediate DIZZYNESS Verified 11/02/17 13:50 Review of Systems Review of Systems All systems reviewed & are unremarkable except as noted in HPI and below Exam Vital Signs (past 8 hours): Vital Signs - 8 hr 11/02/17 23:40 11/03/17 00:00 11/03/17 04:20 Temperature 98.1 F 97.7 F Pulse Rate 80 81 Respiratory Rate 22 22 Blood Pressure 144/65 H 149/73 H Pulse Oximetry 95 95 94 Pulse Oximetry 94 Oxygen Delivery Method Room Air Oxygen Flow Rate 0 Narrative Exam Narrative: Pleasant elderly female awake alert no acute distress HEENT exam unremarkable Neck is supple Lungs Clear to auscultation Heart irregular Abdomen soft nontender Extremities she has bruising over the left elbow quite extensively she has some tenderness to palpation her lower back Neuro exam awake alert no focal deficits she normally uses a walker she does have decreased vibratory sense in the lower extremities Skin warm and dry Objective Labs Result Diagrams: 11/02/17 14:20 11/02/17 14:20 Labs: Laboratory Results - last 24 hr 11/02/17 11/02/17 11/02/17 14:20 14:20 14:20 WBC 11.2 H RBC 5.00 Hgb 15.3 Hct 46.2 H MCV 92.3 MCH 30.7 MCHC 33.2 RDW 14.7 Plt Count 147 L Neut % (Auto) 87.8 H Lymph % (Auto) 6.0 L [place] % (Auto) 6.0 Eos % (Auto) 0.0 L Baso % (Auto) 0.2 Neut # (Auto) 9800 H PT 13.8 H INR 1.3 APTT 31 Sodium 137 Potassium 3.9 Chloride 92 L Carbon Dioxide 30 BUN 18 H Creatinine 0.60 Estimated GFR > 60.0 BUN/Creatinine Ratio 30.0 H Glucose 454 H Lactate Calcium 9.9 Total Bilirubin 1.2 AST 84 H ALT 121 H Alkaline Phosphatase 106 Total Creatine Kinase 349 H CK-MB (CK-2) 2.27 CK-MB (CK-2) Rel Index 0.7 L Troponin I 0.014 Total Protein 7.7 Albumin 4.6 Globulin 3.1 Albumin/Globulin Ratio 1.5 Urine Color Urine Appearance Urine pH Ur Specific [place] Urine Protein Urine Glucose (UA) Urine Ketones Urine Occult Blood Urine Nitrate Urine Bilirubin Urine Urobilinogen Ur Leukocyte Esterase Urine RBC Urine WBC Ur Squamous Epith Cells Urine Bacteria Ur Culture Indicated? Micro UA Comment 11/02/17 11/02/17 14:20 15:59 WBC RBC Hgb Hct MCV MCH MCHC RDW Plt Count Neut % (Auto) Lymph % (Auto) [place] % (Auto) Eos % (Auto) Baso % (Auto) Neut # (Auto) PT INR APTT Sodium Potassium Chloride Carbon Dioxide BUN Creatinine Estimated GFR BUN/Creatinine Ratio Glucose Lactate 1.9 Calcium Total Bilirubin AST ALT Alkaline Phosphatase Total Creatine Kinase CK-MB (CK-2) CK-MB (CK-2) Rel Index Troponin I Total Protein Albumin Globulin Albumin/Globulin Ratio Urine Color Yellow Urine Appearance Clear Urine pH 6.0 Ur Specific [place] 1.010 Urine Protein 1+ H Urine Glucose (UA) 2+ Urine Ketones 2+ H Urine Occult Blood 3+ H Urine Nitrate Negative Urine Bilirubin Negative Urine Urobilinogen 0.2 Ur Leukocyte Esterase Negative Urine RBC 10-30/hpf H Urine WBC 0-1/hpf Ur Squamous Epith Cells 0-1 /hpf Urine Bacteria None seen Ur Culture Indicated? Cult not indicated Micro UA Comment Not Reportable Assessment & Plan Plan: Assessment/Plan Narrative: One. Ground level fall with weakness she evidently has a history of falls and has been unable to get back up the this time. Plan to have her placed on observation for physical therapy consult and work with social media manager to find her safe place to be discharged to no signs of rhabdomyolysis 2. Diabetes type 2 blood sugar over 400 when she came in she may have skipped a few doses of insulin while she was on the floor. Plan to resume her insulin 3. AFib on chronic anticoagulation plan to resume her Cardizem and anticoagulation. 4. Hypertension plan to resume her home medications 5. Code status she desires to be DNR Quality VTE Deep Vein Thrombosis/Pulmonary Embolism Present on Admission: No
[2017-11-03] MEDS: ACETAMINOPHEN 325 MG TABLET PO (06:55)
[2017-11-03] MEDS: INSULIN ASPART 100 UNIT/ML INSULN PEN SUBCUT ×3 (08:28→17:20)
[2017-11-03] MEDS: INSULIN ASPART 100 UNIT/ML INSULN PEN 10 UNIT SUBCUT ×3 (08:28→17:20)
[2017-11-03] MEDS: VENLAFAXINE ER 75 MG CAP 150 MG PO (08:31)
[2017-11-03] MEDS: dilTIAZem CD 120 MG CAP PO (08:31)
[2017-11-03] MEDS: OXYBUTYNIN 5 MG TABLET PO ×2 (08:32→21:17)
[2017-11-03] MEDS: RIVAROXABAN 10 MG TABLET 20 MG PO (08:32)
[2017-11-03] MEDS: LOSARTAN 50 MG TABLET PO (08:32)
--- NOTE | 2017-11-03 10:14 | PC.NURSE ---
Addendum entered by Joanna Shipman R.N. 11/03/17 12:28: At conclusion of visit with CM, Daughter expressed concerns that Pt was still significantly from baseline, neurologically. Noted to be listing to R and Daughter voiced concern for TIA/stroke, ect. No neurological deficit appreciated at this time, appears to be pain issues, making Pt reluctant to use LLE. PT ordered and will see Pt this afternoon. Notified Dr Alva of Daughters concerns, and neuro checks being monitored. Pt is fatiguing quickly with activity. 1235-Pt made NPO at lunch after significant coughing noted with thin liquids. Appears to fatigue and struggle with safe swallowing. Speech consult ordered. Notified Dr Alva. Original Note: 1010 Am shift Pt mentation improved from admission, A/o x3, though takes time coming up with answers. Family arrived this am and updated on POC. Genet with CM into see family and update with progress.
--- NOTE | 2017-11-03 11:12 | CM.DANOTE ---
Addendum entered by Genet Ferrari LPN 11/03/17 11:33: of note: consult to licensed social worker: routine is noted. CM JACINDA Duque reviewed information and states consult appears to be based on DC Planning needed without need for specialized [employer] services. Original Note: DCP: assessment: case received, EMR reviewed and met with pt and her daughter Marley ( an UPHOLSTERY ESTIMATOR at [employer]). Introduced self and role. Pt is an 82 year old female who admitted yesterday afternoon to care of hospitalist team. PCP: Dr. Romero Payer: Medicare (confirmed with Marley that pt does not have a Medicare supplement cannot afford it. Discussed case in Inter[facility] team rounds: PT Calos reports Laverne saw pt late yesterday and noted pt very far from her baseline. Recommending snf rehab stay. UR RN Ashli states pt at this time is here under observation services. She has delivered HAWK to pt with Marley present during process. DCP template completed with info currently available. Marley is expressing concerns re her mother's continued mental status changes, the elevated blood sugars and blood pressure, pt's left sided weakness and ongoing pain when pt tries to lift LLE when standing. Marley works [employer] to [employer] and thus she missed Dr. Alva when he rounded this morning. She is aware that PT is recommending snf. Says pt has no funds to pvt pay for same. They have applied for medicaid in past but denia was dropped after she was unable to locate some penitentiary paperwork. She has all that is needed now and requests new denia (given, along with KATIE Q&A info). She will drop this off tomorrow after work and will plan then to contact Melody Rajput/[facility] Rohit to alert her to probable snf need. (tel: [phone]) Pt was at [facility] in May of 2017 for 21 days and at that point she returned to [facility] with [facility]. Those are no longer current and Marley does say that pt, who manages her own medications, has done poorly with her diabetes management ever since. Marley says she just doesn't like to do it. Says she has discussed this with Dr. Romero. P: very much in process. Marley says she cannot care for pt and there are no other family members able to do this.
--- NOTE | 2017-11-03 12:51 | PT.IPTN ---
Physical Therapy Treatment Note M2 PT-IP Current Condition Start: 11/02/17 16:49 Freq: Status: Active Protocol: Document 11/03/17 11:25 RCC (Rec: 11/03/17 12:51 RCC [email or web address]) Physical Therapy Current Condition Current Condition Evaluation Date 11/02/17 Treatment Diagnosis GLF Onset Date 11/02/17 Precautions Other Precautions falls M3 PT-IP Subjective Start: 11/02/17 16:49 Freq: Status: Active Protocol: Document 11/03/17 11:25 RCC (Rec: 11/03/17 12:51 RCC [email or web address]) Subjective Physical Therapy Visit Type Type Treatment Note Visit Start Time 11:00 Visit Stop Time 11:25 Total Visit Minutes 25 Notes Renee Farfan TRACK SERVICE WORKER assisted with this session. Number of TRACK SERVICE WORKER Visits 0 Physical Therapy Visit Comments Patient Comments Pt c/o L groin pain in sitting and standing. Therapy Pain Assessment Pain When Pain Assessed During Weight Bearing Pain Present Pain Present Pain Reported M4 PT-IP Mobility and Gait Start: 11/02/17 16:49 Freq: Status: Active Protocol: Document 11/03/17 11:25 RCC (Rec: 11/03/17 12:51 RCC [email or web address]) PT-Bed Mobility Assessment Supine to Sit Supine to Sit Moderate Assistance 1 Person Assistance Sit to Supine Sit to Supine Maximum Assistance 1 Person Assistance Scooting Scooting to Edge of Bed Minimal Assistance Scooting Up and Down in Bed Standby Assistance PT-Transfer Assessment Sit to and From Stand Sit to and from Stand Minimal Assistance 1 Person Assistance Equipment Transfer Assistive Device Gait Belt Front Wheeled Walker Transfers Transfer Destination Bed Transfer Technique Stand Step Pivot Transfer Ability Level of Assist Minimal Assistance 1 Person Assistance Comments Mobility Comments Slow gait speed, antalgic. Gait Assessment Gait Gait Assistance Required: Minimum Assistance Distance (Feet) (feet) 10 Assistive Devices Assistive Device Gait Belt Front Wheeled Walker Gait Deviations General Gait Pattern Antalgic Decreased Stride Length Decreased Feet Clearance Step-to Gait Factors Limiting Gait Function Factors Limiting Gait Function Decreased Activity Tolerance Decreased Strength Pain PT-Balance Assessment Sitting Balance and Reactions Static Sitting Balance Ability Good Dynamic Sitting Balance Ability Good Standing Balance and Reactions Static Standing Balance Ability Fair Dynamic Standing Balance Ability Fair Device Used FWW M5 PT-IP Objective Assessments Start: 11/02/17 16:49 Freq: Status: Active Protocol: Document 11/03/17 11:25 RCC (Rec: 11/03/17 12:51 RCC [email or web address]) Orientation Orientation/Cognition Level of Alertness Alert Orientation Name Birthday Date Place Gross Range of Motion Upper Extremity ROM Impairments B shoulder flexion to 150 deg. Strength Lower Extremity Strength Assessment Left Impaired Hip flexion 4/5 Knee extension 4/5, flexion 3+/5 Comments Strength Comments LLE weakness appears to be mainly due to pain Coordination Assessment Gross Coordination Gross Coordination WNL Sensation Assessment Sensation Gross Sensation WNL Comments Sensation Comments pt did c/o B toe numbness sitting on EOB, but WNL in supine M6 PT-IP Treatment Start: 11/02/17 16:49 Freq: Status: Active Protocol: Document 11/03/17 11:25 RCC (Rec: 11/03/17 12:51 RCC [email or web address]) Physical Therapy Treatment Education Education Provided Safety M7 PT-IP Assessment and Plan Start: 11/02/17 16:49 Freq: Status: Active Protocol: Document 11/03/17 11:25 RCC (Rec: 11/03/17 12:51 [facility] [email or web address]) PT Summary Assessment and Plan Summary Impairments Pain Strength Balance Bed Mobility Transfers Gait Activity Tolerance Assessment Summary Pt appears to have LLE weakness, but mainly due to pain and discomfort in the L hip and groin region. Proprioception is intact. Pt appeared to be improving with mobility toward end of gait, but was fatigued and could not extend further. Pt is well below her prior level of function, but is motivated to improve. At this time, the pt is not safe to return to prior living situation. She is at risk for falls, and cannot mobilize safely without assistance. She would be an excellent candidate for SNF rehabilitation to improve her standing balance, gait and activity tolerance, and improvements with functional independence to promote a safe d/c. Goals Bed Mobility Goal Standby Assistance Transfer Goal Standby Assistance Gait Goal Standby Assistance Gait Distance 150 ft Frequency of Treatment Frequency Of Treatment Twice a Day Treatment Plan Physical Therapy Treatment Plan Bed Mobility Training Transfer Training Gait Training Therapeutic Exercise Balance Retraining Post Op Education Discharge Planning Hot or Cold Pack Neuromuscular Re-ed Coordination Retraining Manual Therapy Other Recommendations and Next Treatment prog. gait, standing balance, Focus transfers. Recommendations To Nursing Amount of Assist Needed 1 Person Assist Discharge Recommendations PT Discharge Recommendations SNF Rehab
--- NOTE | 2017-11-03 14:24 | PT.IPTN ---
Physical Therapy Treatment Note M2 PT-IP Current Condition Start: 11/02/17 16:49 Freq: Status: Active Protocol: Document 11/03/17 11:25 RCC (Rec: 11/03/17 12:51 RCC [email or web address]) Physical Therapy Current Condition Current Condition Evaluation Date 11/02/17 Treatment Diagnosis GLF Onset Date 11/02/17 Precautions Other Precautions falls M3 PT-IP Subjective Start: 11/02/17 16:49 Freq: Status: Active Protocol: Document 11/03/17 14:21 CLB (Rec: 11/03/17 14:23 CLB [id number]) Subjective Physical Therapy Visit Type Type Patient Unavailable Notes RN asked that pt not be disturbed due to pt feeling fatigued and unable to finish her lunch.
--- NOTE | 2017-11-03 14:24 | PT.IPTN ---
Physical Therapy Treatment Note M2 PT-IP Current Condition Start: 11/02/17 16:49 Freq: Status: Active Protocol: Document 11/03/17 11:25 RCC (Rec: 11/03/17 12:51 RCC [email or web address]) Physical Therapy Current Condition Current Condition Evaluation Date 11/02/17 Treatment Diagnosis GLF Onset Date 11/02/17 Precautions Other Precautions falls M3 PT-IP Subjective Start: 11/02/17 16:49 Freq: Status: Active Protocol: Document 11/03/17 14:21 CLB (Rec: 11/03/17 14:23 CLB [id number]) Subjective Physical Therapy Visit Type Type Patient Unavailable Notes RN asked that pt not be disturbed due to pt feeling fatigued and unable to finish her lunch. M4 PT-IP Mobility and Gait Start: 11/02/17 16:49 Freq: Status: Active Protocol: Document 11/03/17 11:25 RCC (Rec: 11/03/17 12:51 RCC [email or web address]) PT-Bed Mobility Assessment Supine to Sit Supine to Sit Moderate Assistance 1 Person Assistance Sit to Supine Sit to Supine Maximum Assistance 1 Person Assistance Scooting Scooting to Edge of Bed Minimal Assistance Scooting Up and Down in Bed Standby Assistance PT-Transfer Assessment Sit to and From Stand Sit to and from Stand Minimal Assistance 1 Person Assistance Equipment Transfer Assistive Device Gait Belt Front Wheeled Walker Transfers Transfer Destination Bed Transfer Technique Stand Step Pivot Transfer Ability Level of Assist Minimal Assistance 1 Person Assistance Comments Mobility Comments Slow gait speed, antalgic. Gait Assessment Gait Gait Assistance Required: Minimum Assistance Distance (Feet) (feet) 10 Assistive Devices Assistive Device Gait Belt Front Wheeled Walker Gait Deviations General Gait Pattern Antalgic Decreased Stride Length Decreased Feet Clearance Step-to Gait Factors Limiting Gait Function Factors Limiting Gait Function Decreased Activity Tolerance Decreased Strength Pain PT-Balance Assessment Sitting Balance and Reactions Static Sitting Balance Ability Good Dynamic Sitting Balance Ability Good Standing Balance and Reactions Static Standing Balance Ability Fair Dynamic Standing Balance Ability Fair Device Used FWW M5 PT-IP Objective Assessments Start: 11/02/17 16:49 Freq: Status: Active Protocol: Document 11/03/17 11:25 RCC (Rec: 11/03/17 12:51 RCC [email or web address]) Orientation Orientation/Cognition Level of Alertness Alert Orientation Name Birthday Date Place Gross Range of Motion Upper Extremity ROM Impairments B shoulder flexion to 150 deg. Strength Lower Extremity Strength Assessment Left Impaired Hip flexion 4/5 Knee extension 4/5, flexion 3+/5 Comments Strength Comments LLE weakness appears to be mainly due to pain Coordination Assessment Gross Coordination Gross Coordination WNL Sensation Assessment Sensation Gross Sensation WNL Comments Sensation Comments pt did c/o B toe numbness sitting on EOB, but WNL in supine M6 PT-IP Treatment Start: 11/02/17 16:49 Freq: Status: Active Protocol: Document 11/03/17 11:25 RCC (Rec: 11/03/17 12:51 RCC [email or web address]) Physical Therapy Treatment Education Education Provided Safety M7 PT-IP Assessment and Plan Start: 11/02/17 16:49 Freq: Status: Active Protocol: Document 11/03/17 11:25 RCC (Rec: 11/03/17 12:51 RCC [email or web address]) PT Summary Assessment and Plan Summary Impairments Pain Strength Balance Bed Mobility Transfers Gait Activity Tolerance Assessment Summary Pt appears to have LLE weakness, but mainly due to pain and discomfort in the L hip and groin region. Proprioception is intact. Pt appeared to be improving with mobility toward end of gait, but was fatigued and could not extend further. Pt is well below her prior level of function, but is motivated to improve. At this time, the pt is not safe to return to prior living situation. She is at risk for falls, and cannot mobilize safely without assistance. She would be an excellent candidate for SNF rehabilitation to improve her standing balance, gait and activity tolerance, and improvements with functional independence to promote a safe d/c. Goals Bed Mobility Goal Standby Assistance Transfer Goal Standby Assistance Gait Goal Standby Assistance Gait Distance 150 ft Frequency of Treatment Frequency Of Treatment Twice a Day Treatment Plan Physical Therapy Treatment Plan Bed Mobility Training Transfer Training Gait Training Therapeutic Exercise Balance Retraining Post Op Education Discharge Planning Hot or Cold Pack Neuromuscular Re-ed Coordination Retraining Manual Therapy Other Recommendations and Next Treatment prog. gait, standing balance, Focus transfers. Recommendations To Nursing Amount of Assist Needed 1 Person Assist Discharge Recommendations PT Discharge Recommendations SNF Rehab
[2017-11-03] MEDS: INSULIN GLARGINE 100 UNIT/ML 3ML PEN 25 UNIT SUBCUT (21:17)
[2017-11-03] MEDS: SODIUM CHLORIDE 0.9% 1,000 ML 85 ML IV (21:24)
[2017-11-04] VITALS (12 sets, daily range): BP systolic 128–188; BP diastolic 55–84; PULSE 68–83; RESP 16–75; TEMP 36.4–37.2; O2SAT 92–97; BMI 32.9
--- NOTE | 2017-11-04 | DI.MRI.S_ITS ---
PROCEDURE: MR STROKE Pre- and post-contrast brain MRI, non-contrast brain MR angiogram, pre- and postcontrast neck MR angiogram INDICATIONS: stroke symptoms TECHNIQUE: Brain: Noncontrast axial T1 spin echo, axial T2 fast spin echo, sagittal and axial FLAIR, coronal T2 fast spin echo, axial gradient echo, axial diffusion and ADC through the brain. After the administration of contrast, axial 3D VIBE of the cranial vasculature and brain. Brain MRA: Non-contrast 3-D time of flight MR angiogram, with multiple gzdlkqn-cxzdzrolp-dzrimmlwcn (MIP) reformats performed. Neck MRA: Axial and sagittal TruFISP through the neck. Coronal dynamic MR angiogram during administration of contrast in the arterial and venous phases, with 3-dimenstional nfpsfzp-hiunumbss-pbcdvfnyzp (MIP) reformats constructed from subtraction images. COMPARISON: [facility], US, CAROTID ARTERY DOPPLER BILAT, 01/06/2016, 18:13. [facility], MR, STROKE PROTOCOL, 01/06/2016, 12:57. [facility], CT, HEAD WITHOUT CONTRAST, 03/22/2016, 20:13. [facility], CT, HEAD WITHOUT CONTRAST, 06/11/2017, 14:40. [facility], CT, CT HEAD/BRAIN WO CON, 11/02/2017, 14:04. FINDINGS: Image quality: Good. BRAIN: CSF spaces: Ventricles are normal in size and shape. Basal cisterns are patent. No extra-axial fluid collections. Brain: No intracranial bleeds or mass effects. Pfeiffer-white matter interface is normal. Diffusion weighted images show no acute ischemic insults. There are bilateral basal ganglia and right frontal chronic ischemic infarcts as before. There is also a chronic lacunar infarct in the right side of the valente. Age related cerebral atrophy and chronic deep white matter ischemic changes again noted. Brainstem appears normal. Normal intravascular flow voids are present. No abnormal intracranial enhancement. Skull and face: Calvarial marrow signal is normal. Orbits appear normal. Sinuses: Sinuses and mastoids are clear. BRAIN MR ANGIOGRAM: Anterior circulation: There is considerable signal loss on the noncontrast enhanced images of the intracranial vessels, which appear intact on post contrast views. There may be a small focal stenosis in the left M1 segment. Intracranial internal carotid arteries are patent with atheromatous changes left greater than right. The flow within the A1 segment of the paired anterior cerebral arteries is diminished and possibly atretic on the right. The flow within the middle cerebral arteries is normal and symmetric postcontrast, possible small stenosis on the left in the M1 segment. The anterior communicating artery is not seen. No occlusions, or aneurysms. Posterior circulation: The visualized portions of the vertebral arteries demonstrate normal caliber, and join to form a normal appearing basilar artery. The flow within the posterior cerebral arteries is normal and symmetric. No stenoses, occlusions, or aneurysms. NECK MR ANGIOGRAM: Carotids: Great vessels demonstrate a conventional anatomy as they arise from the aortic arch. The origins of the common carotid arteries appear patent. The calibers and courses of both common carotid arteries are normal. The bifurcation regions again show a 70% stenosis at the origin of the right ICA in a less than 50% stenosis on the left. Both external carotid arteries show stenoses at the origins.. The internal carotid arteries demonstrate normal course and caliber. Posterior circulation: The origins of the vertebral arteries appear patent. There is ostial stenosis at the origin of the right vertebral. The proximal left vertebral is tortuous, as the origin not well seen. More superior portions of both vertebral arteries demonstrate normal course and caliber, and join to form a normal appearing basilar artery. Miscellaneous: Subclavian arteries appear patent. Pre-contrast images through the neck show no soft tissue abnormalities. IMPRESSION: BRAIN MRI: 1. No acute infarct is identified. 2. Age-related atrophy and chronic deep white matter ischemic changes. 3. Several chronic lacunar infarcts are again evident in the right frontal lobe, both basal ganglia and right valente BRAIN MR ANGIOGRAM: Noncontrast intracranial images are suboptimal with considerable signal dropout. Atheromatous changes in the carotid siphons and probable focal 50% stenosis in the proximal left middle cerebral artery NECK MR ANGIOGRAM: 1. Estimated 70% stenosis origin of the right internal carotid artery at the bifurcation, unchanged. Minimal narrowing at the origin of the left ICA. 2. Apparent stenosis at the origin of the right vertebral artery with tortuosity in the proximal left vertebral. Left vertebral may be dominant. Dictated by: Kelechi Mcmahan M.D. on 11/04/2017 at 11:55 Approved by: Kelechi Mcmahan M.D. on 11/04/2017 at 12:16
[2017-11-04 05:57] LABS: Add Manual Diff / Slide Review NO; Basophils Percent Auto 0.8 % (0-2); Eosinophils Percent Auto 1.5 % (2-4); Hematocrit 38.9 % (36-46); Lymphocytes Percent Auto 13.5 % (25-40); Mean Corpuscular HGB Conc 33.5 % (30-36); Mean Corpuscular Hemoglobin 30.8 PG (26-34); Mean Corpuscular Volume 91.8 fL (80-100); Monocytes Percent Auto 8.3 % (3-14); Neutrophils Absolute Auto 7000 /uL (3000-5900); Neutrophils Percent Auto 75.9 % (50-75); Platelet Count 124 X10^3/uL (150-400); Red Blood Cell Count 4.23 X10^6/uL (4.0-5.2); Red Cell Distribution Width 15.1 % (11.6-14.8); White Blood Cell Count 9.2 X10^3/uL (4.5-11.0)
[2017-11-04 06:01] LABS: Alanine Aminotransferase 82 IU/L (9-52); Albumin 3.1 g/dL (3.5-5.0); Albumin Globulin Ratio 1.2 (1.0-2.8); Alkaline Phosphatase 68 U/L (38-126); Aspartate Aminotransferase 64 IU/L (14-36); BUN Creatinine Ratio 28.3 (6-22); Bilirubin Total 0.6 mg/dL (0.2-1.3); Blood Urea Nitrogen 17 mg/dL (7-17); Calcium 8.7 mg/dL (8.4-10.2); Carbon Dioxide 29 mmol/L (22-32); Chloride 102 mmol/L (98-107); Estimated Glomerular Filt Rate > 60.0 mL/min (>60); Globulin 2.6 g/dL (1.7-4.1); Glucose 252 mg/dL (80-110); HEMOLYSIS < 15 (0-50); Potassium 3.6 mmol/L (3.4-5.1); Sodium 139 mmol/L (137-145); Total Protein 5.7 g/dL (6.3-8.2)
[2017-11-04] MEDS: OXYBUTYNIN 5 MG TABLET PO ×2 (08:19→21:15)
[2017-11-04] MEDS: LOSARTAN 50 MG TABLET PO (08:19)
[2017-11-04] MEDS: VENLAFAXINE ER 75 MG CAP 150 MG PO (08:19)
[2017-11-04] MEDS: RIVAROXABAN 10 MG TABLET 20 MG PO (08:19)
[2017-11-04] MEDS: dilTIAZem CD 120 MG CAP PO (08:19)
[2017-11-04] MEDS: INSULIN ASPART 100 UNIT/ML INSULN PEN 10 UNIT SUBCUT ×3 (08:22→17:09)
[2017-11-04] MEDS: INSULIN ASPART 100 UNIT/ML INSULN PEN SUBCUT ×4 (08:23→21:16)
--- NOTE | 2017-11-04 10:23 | P.PN_ITS ---
Subjective Date Patient Seen: 11/04/17 Time Patient Seen: 10:19 Interval history: No new complaints Exam Vital Signs (past 8 hours): Vital Signs - 8 hr 3 11/04/17 04:13 11/04/17 07:00 11/04/17 07:40 Temperature 97.8 F 98.9 F Pulse Rate 71 76 Respiratory Rate 20 18 Blood Pressure 175/76 H 188/84 H Pulse Oximetry 97 94 94 3 11/04/17 08:19 Temperature Pulse Rate 83 Respiratory Rate Blood Pressure 188/83 H Pulse Oximetry Pulse Oximetry 94 Oxygen Delivery Method Room Air Oxygen Flow Rate 0 Narrative Exam Narrative: Sitting up in a chair she is conversant appears comfortable awake alert speech therapy just finished working with her she seems to be swallowing okay Oropharynx clear Neck is supple Heart irregular Lungs clear Abdomen soft nontender Neuro exam is she is awake alert she appears to be back to her baseline there is no focal sensory or motor deficits Skin warm and dry Objective Labs Result Diagrams: 11/04/17 05:23 11/04/17 05:23 Labs: Laboratory Results - last 24 hr 11/04/17 11/04/17 05:23 05:23 WBC 9.2 RBC 4.23 Hgb 13.0 Hct 38.9 MCV 91.8 MCH 30.8 MCHC 33.5 RDW 15.1 H Plt Count 124 L Neut % (Auto) 75.9 H Lymph % (Auto) 13.5 L Sumter % (Auto) 8.3 Eos % (Auto) 1.5 L Baso % (Auto) 0.8 Neut # (Auto) 7000 H Sodium 139 Potassium 3.6 Chloride 102 Carbon Dioxide 29 BUN 17 Creatinine 0.60 Estimated GFR > 60.0 BUN/Creatinine Ratio 28.3 H Glucose 252 H D Calcium 8.7 Total Bilirubin 0.6 AST 64 H ALT 82 H Alkaline Phosphatase 68 Total Protein 5.7 L Albumin 3.1 L Globulin 2.6 Albumin/Globulin Ratio 1.2 Assessment & Plan Plan: Assessment/Plan Narrative: One. Ground level fall with weakness she evidently has a history of falls and has been unable to get back up the this time. Seems to be improving physical therapy will continue working with her they did not work with her yesterday because she was too tired supposedly. Speech therapy has cleared her. There is some question from the family about her confusion and they think she is listing to the left her CT was normal but will go ahead and get an MRI to rule out any infarct. 2. Diabetes type 2 blood sugar over 400 when she came in she may have skipped a few doses of insulin while she was on the floor. Plan to resume her insulin. Blood sugars seem to be better 3. AFib on chronic anticoagulation plan to resume her Cardizem and anticoagulation. 4. Hypertension plan to resume her home medications 5. Code status she desires to be DNR 6. Disposition family and care management over will work together to come up with a safe discharge plan Quality VTE Deep Vein Thrombosis/Pulmonary Embolism Present on Admission: No
--- NOTE | 2017-11-04 10:23 | PT.OTN ---
Please Sign and Return: I have reviewed this Plan of Care and certify that the skilled therapy services above are required to meet the patient?s needs. Physician Signature Date Printed Name and Credentials Clinical Instructor Signature Printed Name and Credentials
--- NOTE | 2017-11-04 10:30 | PT.IPTN ---
Physical Therapy Treatment Note M2 PT-IP Current Condition Start: 11/02/17 16:49 Freq: Status: Active Protocol: Document 11/04/17 09:30 TMS (Rec: 11/04/17 10:22 TMS [email or web address]) Physical Therapy Current Condition Current Condition Evaluation Date 11/02/17 Treatment Diagnosis GLF Onset Date 11/02/17 Precautions Other Precautions falls M3 PT-IP Subjective Start: 11/02/17 16:49 Freq: Status: Active Protocol: Document 11/06/17 15:51 TMS (Rec: 11/04/17 10:22 TMS [email or web address]) Subjective Physical Therapy Visit Type Type Treatment Note Visit Start Time 09:10 Visit Stop Time 09:40 Total Visit Minutes 30 Number of DOZER OPERATOR Visits 1 Physical Therapy Visit Comments Patient Comments Pt. plesantly confused, willing to get up to chair. Therapy Pain Assessment Pain When Pain Assessed During Mobility Pain Present Pain Present Pain Reported M4 PT-IP Mobility and Gait Start: 11/02/17 16:49 Freq: Status: Active Protocol: Document 11/06/17 15:51 TMS (Rec: 11/04/17 10:22 TMS [email or web address]) PT-Bed Mobility Assessment Supine to Sit Supine to Sit Moderate Assistance 1 Person Assistance Scooting Scooting to Edge of Bed Minimal Assistance PT-Transfer Assessment Sit to and From Stand Sit to and from Stand Minimal Assistance 1 Person Assistance Equipment Transfer Assistive Device Gait Belt Front Wheeled Walker Gait Assessment Gait Gait Assistance Required: Minimum Assistance Distance (Feet) (feet) 10 Assistive Devices Assistive Device Gait Belt Front Wheeled Walker Gait Deviations General Gait Pattern Antalgic Decreased Stride Length Decreased Feet Clearance Step-to Gait Factors Limiting Gait Function Factors Limiting Gait Function Decreased Activity Tolerance Decreased Strength Pain Comments Gait Comments Pt. able to walk short distance, needed a lot of cues and minimal assist. Able to walk in place with U.E. assist . Also AP, knee flexion/ext, marching sitting. M5 PT-IP Objective Assessments Start: 11/02/17 16:49 Freq: Status: Active Protocol: Document 11/03/17 11:25 RCC (Rec: 11/03/17 12:51 RCC [email or web address]) Orientation Orientation/Cognition Level of Alertness Alert Orientation Name Birthday Date Place Gross Range of Motion Upper Extremity ROM Impairments B shoulder flexion to 150 deg. Strength Lower Extremity Strength Assessment Left Impaired Hip flexion 4/5 Knee extension 4/5, flexion 3+/5 Comments Strength Comments LLE weakness appears to be mainly due to pain Coordination Assessment Gross Coordination Gross Coordination WNL Sensation Assessment Sensation Gross Sensation WNL Comments Sensation Comments pt did c/o B toe numbness sitting on EOB, but WNL in supine M6 PT-IP Treatment Start: 11/02/17 16:49 Freq: Status: Active Protocol: Document 11/06/17 11:04 CLB (Rec: 11/06/17 11:54 CLB [email or web address]) Physical Therapy Treatment Exercises Exercises Ankle Pumps Gluteal Sets Quad Sets M7 PT-IP Assessment and Plan Start: 11/02/17 16:49 Freq: Status: Active Protocol: Document 11/06/17 15:51 TMS (Rec: 11/04/17 10:22 TMS [email or web address]) PT Summary Assessment and Plan Potential Rehabilitation Potential Fair Status of Condition at Evaluation Evolving Summary Impairments Pain Strength Balance Bed Mobility Transfers Gait Activity Tolerance Assessment Summary Very minimal complaints of pain, needed a lot of assist for bed mobility. Very confused. Frequency of Treatment Frequency Of Treatment Twice a Day Treatment Plan Physical Therapy Treatment Plan Bed Mobility Training Transfer Training Gait Training Therapeutic Exercise Balance Retraining Post Op Education Discharge Planning Hot or Cold Pack Neuromuscular Re-ed Coordination Retraining Manual Therapy Recommendations To Nursing Amount of Assist Needed 1 Person Assist Discharge Recommendations PT Discharge Recommendations SNF Rehab
--- NOTE | 2017-11-04 10:36 | PC.NURSE ---
DIL at bedside speaking with care management ([place]). Patient dentures (top and bottom) are ill-fitting so speech recommends mechanical soft; swallowing is appropriate. Dietary called to help patient choose appropriate meals and snacks.
--- NOTE | 2017-11-04 11:30 | ST.IPIE ---
Past Medical History (Last Updated 11/03/17 @ 06:24 by Sudhir Alva MD) Atrial fibrillation (Chronic Medical) Depression with anxiety (Chronic Medical) Diabetes (Chronic Medical) Hyperlipidemia (Chronic Medical) Hypertension (Chronic Medical) Hypothyroid (Chronic Medical) Peripheral neuropathy (Chronic Medical) Cholecystectomy planned (Resolved Medical) FH: total abdominal hysterectomy and bilateral salpingo-oophorectomy (Resolved Medical) ST IP Initial Evaulation Report WOOD MILLING MACHINE TENDER Clinical Swallow Evaluation Start: 11/04/17 10:20 Freq: Status: Active Protocol: Document 11/04/17 11:15 MRM (Rec: 11/04/17 11:55 MRM [id number]) Clinical Swallow Evaluation Session Time Visit Start Time 10:30 Visit Stop Time 11:00 Total Visit Minutes [address] Alva Reason for Referral Difficulty swallowing Setting Assessment Location Acute Care Visit Type Note Type Initial Evaluation Next Note Type Next Note Type Treatment Note Patient Information Identification Type Name Date of ID Wristband History Patient is an 82-year-old female who was brought to [facility] ED after being found down at home. Per H&P, the patient had been down for several hours before she was found. In that time, her blood sugar levels were very unbalanced and her cognitive state was skewed from baseline . PMH: Afib Depression with anxiety Hyperlipidemia Hypertension Hypothyroidism Peripheral neuropathy Cholecystectomy planned Imaging: Head CT (11/02) - No acute intracranial process; no intracranial hemorrhage Brain MRI (11/04) - awaiting results Patient was placed on a regular diet on 11/02, but was observed to have difficulty swallowing her water by nursing on 11/03. As a result, she was ordered NPO and an WOOD MILLING MACHINE TENDER consult was ordered. On 11/04 she was put on a carb consistent diet and tolerated 100% of her breakfast with nursing observation throughout the meal. When WOOD MILLING MACHINE TENDER arrived, patient had finished her breakfast, but she did agree to participate in clinical swallow evaluation Subjective Observations Patient awake and alert, sitting up in chair with [id number] present. No complaint of pain pre/post evaluation. Patient agreed to participate in evaluation with speech therapy. Patient's [id number] stated that the patient's upper dentures did not fit well and that due to her weight change in her face, her lower implants were also loose. As a result, she has diffiuclty masticating regular textures and prefers soft, chopped textures. She requested that WOOD MILLING MACHINE TENDER ask for extra gravies with her meats prior to initiation of the swallow evaluation. Patient was observed to have some word finding and memory diffculty by WOOD MILLING MACHINE TENDER. The daughter -in-law also confirmed this. It was also reported to Dr Alva, who was present at the end of the session. A brain MRI was ordered to rule out a stroke. Evaluation Liquids Trialed Thin Solids Trialed Regular Administration Type Staw Self-Feeding Oral Impairment Mildly Impaired Oral Strategies Upright at 90 degrees Controlled Bite/Sip Size Alternate Liquids/Solids Oral Phase Comments Oral strength was WFL for tolerance of regular textures and thin liquids (through straw, patient's preference). However, due to the patient's dentition difficulty, she stated that she would be able to better tolerate softer textures. She needed to take a sip of water to assist her ability to complete matication of dry cracker to swallow it successfully. She declined additional trials of fruit but requested that her food be made softer at meals. Pharyngeal Impairment WFL Pharyngeal Phase Strategies Small Bites and Sips Alternate Liquids/Solids Pharyngeal Phase Comments No pharyngeal impairment observed. No overt s/s of aspiration. No cough, no change in vocal quality. Patient able to tolerate single and consecutive sips of thin liquid via straw without difficulty. Able to chew and swallow dry cracker without difficulty. No pharyngeal dysphagia. Findings Dysphagia Type Mild oral difficulty secondary to poor dentition fitting; no dysphagia Rehabilitation Potential Excellent Impressions Patient does not present with oropharyngeal dysphagia at this time. She has poor fitting dentures/partials due to weight change. As a result, regular textures are difficult for her to tolearte without taking sips of water to moisten. She independently requested softer foods with her meals to ease her mastication ability. She was able to take consecutive sips of thin liquid without any demosntrated difficulty or overt s/s of aspiration. Hyolaryngeal elevation/ excursion adequate. Cough/ throat clear strong and productive. No reported difficulty or change in swallowing ability. RECOMMEND: Mechanical soft textures and thin liquids. Chopped food with additional gravy added to alex. Pills in carrier, per patient preference. WOOD MILLING MACHINE TENDER will follow up to observe patient's tolerance of new diet order. Monitor cognitive level and wait for MRI results . A cognitive evaluation may be warranted, pending results. Diet Recommendations Liquids Order Thin Diet Order Mechanical Soft Medication Recommendations As Tolerated Whole in Carrier Comments Per patient preference Additional Dietary Needs Chopped Food Single Sips Encourage to Self-Feed Reminders to Use Strategies Aspiration Precautions Recommended Precautions Upright at 90 Degrees Alternate Liquids/Solids Frequent Rest Periods Small Bites/Sips Lingual Sweep Additional Precautions Check for residue around loose fitting dentition Treatment Plan Placement Recommendations after Long Term Facility Discharge Appropriate for Therapy Yes Therapy Recommendations Follow up to assess patient with new diet order. Monitor cognition and perform cognitive evaluation, if warranted. A dietary consult may be appropriate to discuss additional options to assist the patient in ease of intake due to compromised dentition. Dysphagia Goals Patient will tolerate a mechanical soft diet and thin liquids with ease in mastication and consistent ability to tolerate without difficulty or overt s/s of aspiration. Patient will perform lingual sweep to check for any oral residue that may remain in loose fitting dentures and/or plates. Referrals/Other Recommended Referrals Dietary Consult WOOD MILLING MACHINE TENDER Oral Motor Exam Start: 11/04/17 10:20 Freq: Status: Active Protocol: Document 11/04/17 11:15 [facility] (Rec: 11/04/17 11:55 [facility] [id number]) Oral Motor Examination Face Facial Symmetry Symmetrical Facial Movement Controlled Mouth Teeth Characteristics Dental Appliance Teeth Comment Loose upper plate and lower inplants Pucker Lips Normal Smile Normal Puff Cheeks Normal Tongue Size Normal Tongue Movement Protrusion/Retraction Strength WFL Protrusion/Retraction Range of Movement Normal Protrusion/Retraction Coordination WFL Elevation/Depression Strength WFL Elevation/Despression Range of Movement Normal Elevation/Depression Coordination WFL Lateralization Strength WFL Lateralization Range of Movement Normal Lateralization Coordination WFL Palate Soft Palate Description Normal Hard Palate Description Normal Gag Reflex Response Normal Velopharyngeal Movement Normal Hyolaryngeal Movement Hyolaryngeal Movement Normal Elevation Normal Excursion
[2017-11-04] MEDS: ACETAMINOPHEN 325 MG TABLET PO ×2 (12:10→21:14)
--- NOTE | 2017-11-04 13:11 | OT.IP.EVAL ---
Past Medical History (Last Updated 11/03/17 @ 06:24 by Sudhir Alva MD) Atrial fibrillation (Chronic) Depression with anxiety (Chronic) Diabetes (Chronic) Hyperlipidemia (Chronic) Hypertension (Chronic) Hypothyroid (Chronic) Peripheral neuropathy (Chronic) Cholecystectomy planned (Resolved) FH: total abdominal hysterectomy and bilateral salpingo-oophorectomy (Resolved) Occupational Therapy Inpatient Evaluation/Re-Eval M1 PT/OT-IP Prior Functional Status Start: 11/02/17 16:49 Freq: Status: Active Protocol: Document 11/02/17 16:49 AB (Rec: 11/02/17 17:02 AB [id number]) Medical Review Prior Functional Status Medical History Reviewed Yes Mobility and Gait per daughter, pt is somewhat independent with mobility using a 4WW for ambulation. stated that pt needs help but lives alone is an independent living facility. Social History Household Members none Living Arrangements Apartment/Condo Number of Floors (Floors) One Floor Number of Stairs To Enter/Railing? pt lives at [facility] living [facility] without steps to enter. 2 meals are provided but pt fixes her own breakfast. Home Environment Walk in Shower Home Equipment Four Wheel Walker Raised Toilet Seat w/Armrests Shower Seat with Backrest Employment Status Retired Additional Social History Comment daughter stated that she calls her to check on her but does not come to her apartment that often M1 PT/OT-IP Prior Functional Status Start: 11/04/17 12:43 Freq: NEEDED Status: Active Protocol: Document 11/04/17 11:09 [facility] (Rec: 11/04/17 13:11 [facility] [id number]) Medical Review Prior Functional Status Medical History Reviewed Yes Communication Pt noted to have some word finding difficulty and perseveration, daughter present to provide history and PLOF. Mobility and Gait per daughter, pt is somewhat independent with mobility using a 4WW for ambulation. stated that pt needs help but lives alone is an independent living facility. Activities of Daily Living and IADL's Pt lives in [facility], which provides 2 x day meals and weekly housekeeping. Pt walks to meals and otherwise mod I for all self-care, with varying safety and effectiveness. Prior Functional Level (Other details) Daughter reports pt was not consistently taking medications, frequently incontinent, with increasingly untidy apartment. Social History Household Members none Living Arrangements Alf Facility Number of Floors (Floors) One Floor Home Environment Walk in Shower Home Equipment Four Wheel Walker Raised Toilet Seat w/Armrests Employment Status Retired M2 OT-IP Current Condition Start: 11/04/17 12:43 Freq: Status: Active Protocol: Document 11/04/17 11:09 [facility] (Rec: 11/04/17 13:11 [facility] [id number]) Occupational Therapy Current Condition Current Condition Evaluation Date 11/04/17 Treatment Diagnosis confusion Diagnosis Onset Date 11/03/17 Post Operative Precautions Other Precautions falls M3 OT- IP Subjective and Pain Start: 11/04/17 12:43 Freq: Status: Active Protocol: Document 11/04/17 11:09 [facility] (Rec: 11/04/17 13:11 [facility] [id number]) OT- Subjective Occupational Therapy Visit Type Type Initial Evaluation Visit Start Time 10:17 Visit Stop Time 11:09 Total Visit Minutes 52 OT Pain Assessment Pain When Pain Assessed At Rest Pain Present Pain Present Pain Reported Location Generalized Scale Used pt unable to rate, described as burning Description Burning Management Techniques Distraction Modification of Treatment Re-positioning Timing of Activity with Medications M4 OT- IP ADL's Start: 11/04/17 12:43 Freq: Status: Active Protocol: Document 11/04/17 11:09 [facility] (Rec: 11/04/17 13:11 [facility] [id number]) OT ADL-Dressing General Eval Lower Body Dressing Ability Minimal Assistance Areas Needing Assistance Underpants/Brief Socks Comments OT Dressing Comments Pt unable to doff or don socks in sitting, and needed mod A to manage brief during toileting task OT ADL-Toileting General Evaluation Toileting Ability Moderate Assistance Areas Needing Assistance Manage Clothing Devices Toileting Assistive Devices Grab Bars Raised Toilet Seat Comments OT Toileting Comments Pt able to transfer to/from BSC over toilet with wall grab bars, FWW, and mod A to manage brief and IV pole. Pt able to perform all hygiene. M6 OT- IP Functional Cognition Start: 11/04/17 12:43 Freq: Status: Active Protocol: Document 11/04/17 11:09 [facility] (Rec: 11/04/17 13:11 ADH [id number]) Cognitive Factors Limiting Selfcare Function Cognitive Ability Level of Alertness Alert Patient Orientation Name Age Month Date Year Place Situation Attention Span Ability Capable of Focused Attention Ability to Follow Commands Able to Follow One Step Commands Memory Description Immediate Impaired Short Term Impaired Working Impaired Safety Awareness Underestimates Need for Assistance Problem Solving Ability Unable to Identify Errors Cognitive Comments Cognitive Assessment Comments Pt would benefit from cognitive screen, LITERACY COORDINATOR notified . OT- Vision and Hearing OT- Hearing Assessment OT- Hearing Assessment WFL OT- Vision Assessment Vision History Cataracts Glaucoma Visual Acuity Glasses All The Time M7 OT- IP Mobility and Balance Start: 11/04/17 12:43 Freq: Status: Active Protocol: Document 11/04/17 11:09 [facility] (Rec: 11/04/17 13:11 ADH [id number]) OT-Transfer Assessment Sit to and From Stand Sit to and from Stand Minimal Assistance Transfers Transfer Ability Minimal Assistance Technique Transfer Destination Bed Chair Toilet Transfer Technique Stand Step Pivot Devices Transfer Assistive Devices Gait Belt Front Wheeled Walker OT- Gait Assessment Gait Gait Assistance Required: Minimum Assistance Distance (Feet) (feet) 15 Assistive Devices Assistive Device Gait Belt Front Wheeled Walker M8 OT- IP Objective Assessments Start: 11/04/17 12:43 Freq: Status: Active Protocol: Document 11/04/17 11:09 [facility] (Rec: 11/04/17 13:11 [facility] [id number]) OT Gross Range of Motion Upper Extremity Range of Motion Assessment Within Functional Limits ROM Impairments Pt with difficulty following ROM demonstration, mild perseveration observed. OT Strength Upper Extremity Strength Assessment Bilaterally Impaired Shoulder 4-/5 Elbow 3+/5 Forearm 4-/5 Hand Drop Forge Hand Strength Hand Dominance Mixed Comments Strength Comments Pt has large bruise on R elbow , consistent with previous fall. Pt reported pain in R elbow with MMT testing. OT- Coordination Assessment Upper Extremity Finger Tapping Test Within Functional Limits M9 OT- IP Assessment and Plan Start: 11/04/17 12:43 Freq: Status: Active Protocol: Document 11/04/17 11:09 [facility] (Rec: 11/04/17 13:11 ADH [id number]) OT Summary Assessment and Plan Potential Rehabilitation Potential Good Analytic Complexity at Evaluation Low Summary OT Impairments Pain Range of Motion Functional Cognition Assessment Summary Pt with fair functional mobility during OT evaluation, limited by functional cognition, perseveration, decreased problem solving. Pt fatigued after toileting and in-room ambulation, requesting to rest. Pt not yet at baseline and not safe to d/c home alone. Pt will require increased support upon d/c, recommending 10/12 at this time . Pt would benefit from SNF stay to decrease fall risk and increase independence. Goals Dressing Goal Contact Guard Assistance Toileting Goal Contact Guard Assistance Toilet Transfer Goal Contact Guard Assistance Frequency of Treatment Frequency Of Treatment Once a Day Treatment Plan OT Treatment Plan ADL Training Functional Mobility Patient/Family Education Discharge Planning Discharge Recommendations OT Discharge Recommendations SNF Rehab
--- NOTE | 2017-11-04 13:18 | ST.IPTN ---
C PYTHON DEVELOPER Dysphagia Treatment C PYTHON DEVELOPER Dysphagia Treatment Start: 11/04/17 12:28 Freq: Status: Active Protocol: Document 11/04/17 12:28 [facility] (Rec: 11/04/17 12:35 [facility] [id number]) Dysphagia Treatment Session Time Visit Start Time 12:00 Visit Stop Time 12:20 Total Visit Minutes 20 Setting Assessment Location Acute Care Visit Type Note Type Treatment Note Next Note Type Next Note Type Treatment Note Patient Information Identification Type Name Subjective Observations Patient awake and alert, just returned from MRI. 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 Results were viewed after second treatment. Treatment performed with patient's lunch . Treatment Liquids Trialed Thin Solids Trialed Mechanical Soft Administration Type Self-Feeding Oral Strategies Upright at 90 degrees Controlled Bite/Sip Size Alternate Liquids/Solids Pharyngeal Phase Strategies Sitting Upright (90 deg) Small Bites and Sips Alternate Liquids/Solids Treatment Activities Patient independent in trials. Received lunch tray with egg salad sandwich, tea and soft fruit. Able to tolerate liquids and solids with adequate mastication and swallowing with cues from C PYTHON DEVELOPER of slow rate and lengthy mastication time. Independently, patient was observed to take large, quick bites and then demonstrate difficulty swallowing and reduced vocal quality. At one point, she stated, That's not going down well. I must have done something wrong. C PYTHON DEVELOPER reinforced the importance of small, slow bites with thorough mastication. The patient verbalized understanding. She then took some puree pudding from C PYTHON DEVELOPER and stated, This is so much easier to get down because it' s smooth. Assessment Patient Response to Treatment Good Rehab Potential Good Assessment of Improvement Patient's cognition continues to be reduced with confusion, short term memory diffuculty and word finding difficulty. C PYTHON DEVELOPER will follow up tomorrow to monitor her status. A cognitive evaluation may be warranted if she continues to have difficulty tomorrow. At this time, her largest barrier to successful PO intake is her eating behavior (large bites/sips, inadequate chewing/swallowing food whole) . Please monitor patient during meals with 1:1 observation to ensure that her eating behavior remains safe. C PYTHON DEVELOPER will follow up tomorrow. Diet Recommendations Recommendations Continue Current Diet Liquids Order Thin Diet Order Mechanical Soft Medication Recommendations Whole in Carrier Additional Dietary Needs Chopped Food 1:1 Supervision Aspiration Precautions Recommended Precautions Upright at 90 Degrees Alternate Liquids/Solids Frequent Rest Periods Small Bites/Sips Lingual Sweep Treatment Plan Placement Recommendation after Discharge Longterm Facility Appropriate for Continued Therapy Yes Therapy Recommendations Continue to monitor patient's safety during intake. Cue for lingual sweep to check for any residue in dentures. Monitor patient's cognition. An evaluation of cognition may be warranted if she remains disoriented tomorrow. Dysphagia Goals Patient will tolerate a mechanical soft diet and thin liquids with ease in mastication and consistent ability to tolerate without difficulty or overt s/s of aspiration. Patient will perform lingual sweep to check for any oral residue that may remain in loose fitting dentures and/or plates.
--- NOTE | 2017-11-04 13:32 | CM.DPC ---
DCP: continued: Met with pt and daughter in law Marley late morning as planned. Marley reported that Dr. Alva had been in to see her mother and POC was discussed. MRI was pending to see about ? CVA. Marley continues to say that no options are open for pt except a facility and she does not have the money for this. Pt is currently paying about $1800 month at [facility] but this would only cover 3-4 days at a snf setting and the apt would have to be released first. Marley notes I know from my work at the hospital that she cannot be discharged without a safe d/c plan. Assured her that the CM team would continue to advocate for her and her mother but encouraged her to begin to think creatively re how her mother might be cared for going forward. She says FMLA at her work is not an option for us. Pt expressed desire to give DPOA/Medical to her daughter in law Marley and Marley agreed, stating they have been discussing this for some time. Document provided for pt and Marley to complete and notified Los Mariano, Medical Records/notary who readily agreed to assist them. Copies then were made of the notarized document, copy to Red Folder chart, Los has scanned copy to EMR. Original plus copies given to pt and Marley for their records. 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 Left a for [facility] [place] Melody Rajput [phone] with update and request for advice. Her role if following for pt's in hospital with medicaid apps and needing snf placement. UR DONG Cornelius confirms again the observation admission status. PT, OT and MICROSTRATEGY REPORTS DEVELOPER continue to work with pt. She is making some slow gains, mentally seems much clearer but unclear if at baseline. MRI does now show multiple areas of chronic infarcts. Pain in L groin area continues to impact pt's functional abilities and PT and OT continue to recommend snf rehab vs close 24/7 assist. Discussed case in post team rounds with CM/JACINDA Moseley and then later with CM livestock nutrition territory manager Marianna Carrillo as d/c dispo would appear challenging at this point. Marley has gone home to sleep. Agreed to meet with her tomorrow and continue the d/c planning process. At this point pt needs OT/PT/MICROSTRATEGY REPORTS DEVELOPER care plus diabetic management/insulin. Did put a call in to GABRIEL/Susanna just to discuss at pt had been at [facility] in past with a Medicaid denia started and then rejected. She agreed to check in with her team and get some more specifics of what may have occurred re the medicaid denia. She warned that it was doubtful they could accept pt only with Medicaid pending but will get back to this d/c corporate event planner by tomorrow.
--- NOTE | 2017-11-04 14:07 | PT.IPTN ---
Physical Therapy Treatment Note M2 PT-IP Current Condition Start: 11/02/17 16:49 Freq: Status: Active Protocol: Document 11/04/17 09:30 TMS (Rec: 11/04/17 10:22 TMS [email or web address]) Physical Therapy Current Condition Current Condition Evaluation Date 11/02/17 Treatment Diagnosis GLF Onset Date 11/02/17 Precautions Other Precautions falls M3 PT-IP Subjective Start: 11/02/17 16:49 Freq: Status: Active Protocol: Document 11/04/17 14:00 RS (Rec: 11/04/17 14:07 RS [id number]) Subjective Physical Therapy Visit Type Type Treatment Note Visit Start Time 13:34 Visit Stop Time 14:00 Total Visit Minutes 26 Physical Therapy Visit Comments Patient Comments Pt asleep upon entry but awoke easily to voice. Pt declines walking but is happy to participate in exercises and bed mobility. Therapy Pain Assessment Pain When Pain Assessed At Rest Pain Present Pain Present Denied Pain M4 PT-IP Mobility and Gait Start: 11/02/17 16:49 Freq: Status: Active Protocol: Document 11/04/17 09:30 TMS (Rec: 11/04/17 10:22 TMS [email or web address]) PT-Bed Mobility Assessment Supine to Sit Supine to Sit Moderate Assistance 1 Person Assistance Scooting Scooting to Edge of Bed Minimal Assistance PT-Transfer Assessment Sit to and From Stand Sit to and from Stand Minimal Assistance 1 Person Assistance Equipment Transfer Assistive Device Gait Belt Front Wheeled Walker Gait Assessment Gait Gait Assistance Required: Minimum Assistance Distance (Feet) (feet) 10 Assistive Devices Assistive Device Gait Belt Front Wheeled Walker Gait Deviations General Gait Pattern Antalgic Decreased Stride Length Decreased Feet Clearance Step-to Gait Factors Limiting Gait Function Factors Limiting Gait Function Decreased Activity Tolerance Decreased Strength Pain Comments Gait Comments Pt. able to walk short distance, needed a lot of cues and minimal assist. Able to walk in place with U.E. assist . Also AP, knee flexion/ext, marching sitting. M5 PT-IP Objective Assessments Start: 11/02/17 16:49 Freq: Status: Active Protocol: Document 11/03/17 11:25 RCC (Rec: 11/03/17 12:51 RCC [id number]) Orientation Orientation/Cognition Level of Alertness Alert Orientation Name Birthday Date Place Gross Range of Motion Upper Extremity ROM Impairments B shoulder flexion to 150 deg. Strength Lower Extremity Strength Assessment Left Impaired Hip flexion 4/5 Knee extension 4/5, flexion 3+/5 Comments Strength Comments LLE weakness appears to be mainly due to pain Coordination Assessment Gross Coordination Gross Coordination WNL Sensation Assessment Sensation Gross Sensation WNL Comments Sensation Comments pt did c/o B toe numbness sitting on EOB, but WNL in supine M6 PT-IP Treatment Start: 11/02/17 16:49 Freq: Status: Active Protocol: Document 11/04/17 14:00 RS (Rec: 11/04/17 14:07 [id number] Physical Therapy Treatment Exercises Exercises Ankle Pumps Gluteal Sets Quad Sets Heel Slides Supine Hip Abduction Education Education Provided Safety M7 PT-IP Assessment and Plan Start: 11/02/17 16:49 Freq: Status: Active Protocol: Document 11/04/17 14:00 RS (Rec: 11/04/17 14:07 [id number]) PT Summary Assessment and Plan Potential Rehabilitation Potential Fair Status of Condition at Evaluation Evolving Summary Impairments Pain Strength Balance Bed Mobility Transfers Gait Activity Tolerance Assessment Summary Pt somewhat distracted at beginning of session by heart monitor cords, however, once they were tucked underneath the gown she was able to better focus. Pt still presents with weaker LLE but was able to fully participate in strengthening exercises without unexpected difficulty or pain. Pt still needing more than expected assist for bed mobility. Continue to recommend pt transition to SNF rehab once medically ready. Frequency of Treatment Frequency Of Treatment Twice a Day Treatment Plan Physical Therapy Treatment Plan Bed Mobility Training Transfer Training Gait Training Therapeutic Exercise Balance Retraining Post Op Education Discharge Planning Hot or Cold Pack Neuromuscular Re-ed Coordination Retraining Manual Therapy Other Recommendations and Next Treatment progress gait distance Focus Recommendations To Nursing Amount of Assist Needed 1 Person Assist Discharge Recommendations PT Discharge Recommendations SNF Rehab
[2017-11-04] MEDS: INSULIN GLARGINE 100 UNIT/ML 3ML PEN 25 UNIT SUBCUT (21:15)
[2017-11-05] VITALS (7 sets, daily range): BP systolic 148–202; BP diastolic 82–95; PULSE 62–80; RESP 13–17; TEMP 36.6–37.4; O2SAT 95–97
--- NOTE | 2017-11-05 | DI.RAD.S_ITS ---
PROCEDURE: XR HIP W PEL IF DONE BILAT 2V INDICATIONS: Complaints of right hip pain after GLF TECHNIQUE: AP pelvis with lateral view(s) of the both hip(s). COMPARISON: None. FINDINGS: Bones: No fractures or dislocations. Pelvic ring appears intact. No suspicious bony lesions. Moderate hip joint degeneration bilaterally. Soft tissues: The visualized bowel gas pattern is normal. No suspicious soft tissue calcifications. 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 Dictated by: Doigenes Wagoner M.D. on 11/05/2017 at 13:20 Approved by: Diogenes Wagoner M.D. on 11/05/2017 at 13:22
[2017-11-05] MEDS: ACETAMINOPHEN 325 MG TABLET PO (05:30)
[2017-11-05] MEDS: INSULIN ASPART 100 UNIT/ML INSULN PEN 10 UNIT SUBCUT ×2 (09:21→12:10)
[2017-11-05] MEDS: INSULIN ASPART 100 UNIT/ML INSULN PEN SUBCUT ×3 (09:21→21:29)
[2017-11-05] MEDS: VENLAFAXINE ER 75 MG CAP 150 MG PO (09:22)
[2017-11-05] MEDS: OXYBUTYNIN 5 MG TABLET PO ×2 (09:22→21:31)
[2017-11-05] MEDS: LOSARTAN 50 MG TABLET PO ×2 (09:23→21:30)
[2017-11-05] MEDS: dilTIAZem CD 120 MG CAP PO (09:23)
[2017-11-05] MEDS: RIVAROXABAN 10 MG TABLET 20 MG PO (09:23)
--- NOTE | 2017-11-05 09:43 | PC.NURSE ---
Pt is Alert, oriented to name, date, and age. Forgetful/confused at times though. Patient was able to tell me she fell at home and got those bruises on her arm. However, when speech therapy came to talk to her she was not sure why she was here and where the bruises came from.
--- NOTE | 2017-11-05 10:09 | ST.IPTN ---
JEWEL STAKER Dysphagia Treatment JEWEL STAKER Dysphagia Treatment Start: 11/04/17 12:28 Freq: Status: Active Protocol: Document 11/05/17 09:59 [facility] (Rec: 11/05/17 10:09 [facility] [id number]) Dysphagia Treatment Session Time Visit Start Time 08:35 Visit Stop Time 09:05 Total Visit Minutes 30 Setting Assessment Location Acute Care Visit Type Note Type Treatment Note Next Note Type Next Note Type Treatment Note Patient Information Identification Type Name ID Card Subjective Observations Patient awake and alert, sitting up in chair with RN present. Breakfast tray had arrived. Patient independent in eating, but required 1:1 supervision to maintain safety . Patient continues to present with moderate short term memory difficulty and reduced orientation. She forgot x3 how long she had been in the hospital and why she had come, and she had difficulty remembering family who had come to visit yesterday. Word finding difficulty was also observed throughout conversation. Reduced problem solving also observed. Treatment Liquids Trialed Thin Solids Trialed Mechanical Soft Administration Type Cup Single Sip Staw Self-Feeding Oral Strategies Upright at 90 degrees Controlled Bite/Sip Size Alternate Liquids/Solids Pharyngeal Phase Strategies Sitting Upright (90 deg) Chin Tuck Small Bites and Sips Alternate Liquids/Solids Additional Dysphagia Treatment Slow rate of intake Strategies Treatment Activities Patient independent in eating breakfast. She tolerated thin liquid via cup and straw as well as mechanical soft steel cut oat meal, ground sausage and fresh orange slices. Mild- moderate oral residue was observed with spoon bites of oat meal and coughing observed x1 immediately after a swallow. This coughing suspected to be secondary to talking/swallowing and distraction, however, cannot rule out aspiration. With reduced distraction and 1:1 cues to take a bite,swallow, sip water, chin tuick,swallow, the patient was able to resume intake without difficulty. Again, with trials of steel cut oat meal, she did also exhibit a mildly reduced vocal quality. With throat clear and liquid wash, this resolved. No difficulty observed with ground meat or oranges. No difficulty obesred with thin liquid via cup or straw. Continue current diet. Spoke with bilingual teacher aide regarding the texture of the patient's oatmeal. Dietary recommended that the patient receive cream of wheat or instant oatmeal to reduce the gritty texture that the patient struggled with. Assessment Patient Response to Treatment Good Rehab Potential Good Assessment of Improvement Patient continues to exhibit reduced congitive status and decreased awareness of safety. As a result, she does not independently problem solve or implement safe swallowing behaviors. To ensure her safety, she will continue to need 1:1 supervision with all intake. When following strict swallowing behavior of single bites/sips with throat clear/ double swallow, she is successful in tolerating her meal without difficulty. However, when she becomes distracted, she starts to show difficulty - wet vocal qualtiy and coughing. Again, she does not independently problem solve by implementing throat clear, chewing food longer, taking a drink to clear her throat. Continue current diet with strict supervision to ensure the safety of her swallowing. She continues to demonstrate reduced cognitive function. Plan to speak with family regarding the patient's mental baseline and determine if a congitive evaluation is warranted. Diet Recommendations Recommendations Continue Current Diet Liquids Order Thin Diet Order Mechanical Soft Medication Recommendations As Tolerated Whole in Carrier Additional Dietary Needs 1:1 Supervision Encourage to Self-Feed Reminders to Use Strategies Aspiration Precautions Recommended Precautions Upright at 90 Degrees Alternate Liquids/Solids Frequent Rest Periods Small Bites/Sips Chin Tuck Double Swallow Lingual Sweep Check for Pocketing Treatment Plan Placement Recommendation after Discharge Correction Facility Appropriate for Continued Therapy Yes Therapy Recommendations Continue to monitor patient's safety during intake. Cue for lingual sweep to check for any residue in dentures. Cue for thorough mastication and liquid wash to clear pharynx of residue. Cue to remain alert during meals. Monitor patient's cognition. Speak with aly regarding her baseline and determine if a congitive evaluation is warranted. Dysphagia Goals Patient will tolerate a mechanical soft diet and thin liquids with ease in mastication and consistent ability to tolerate without difficulty or overt s/s of aspiration. Patient will perform lingual sweep to check for any oral residue that may remain in loose fitting dentures and/or plates. Patient will maintian alertness during intake to reduce risk of aspiraiton.
--- NOTE | 2017-11-05 10:30 | ST.IPTN ---
MOTOR RACER Dysphagia Treatment MOTOR RACER Dysphagia Treatment Start: 11/04/17 12:28 Freq: Status: Active Protocol: Document 11/05/17 09:59 [facility] (Rec: 11/05/17 10:09 [facility] [id number]) Dysphagia Treatment Session Time Visit Start Time 08:35 Visit Stop Time 09:05 Total Visit Minutes 30 Setting Assessment Location Acute Care Visit Type Note Type Treatment Note Next Note Type Next Note Type Treatment Note Patient Information Identification Type Name ID Card Subjective Observations Patient awake and alert, sitting up in chair with RN present. Breakfast tray had arrived. Patient independent in eating, but required 1:1 supervision to maintain safety . Patient continues to present with moderate short term memory difficulty and reduced orientation. She forgot x3 how long she had been in the hospital and why she had come, and she had difficulty remembering family who had come to visit yesterday. Word finding difficulty was also observed throughout conversation. Reduced problem solving also observed. Treatment Liquids Trialed Thin Solids Trialed Dysphagia Advanced Mechanical Soft Administration Type Cup Single Sip Staw Self-Feeding Oral Strategies Upright at 90 degrees Controlled Bite/Sip Size Alternate Liquids/Solids Pharyngeal Phase Strategies Sitting Upright (90 deg) Chin Tuck Small Bites and Sips Alternate Liquids/Solids Additional Dysphagia Treatment Slow rate of intake Strategies Treatment Activities Patient independent in eating breakfast. She tolerated thin liquid via cup and straw as well as mechanical soft steel cut oat meal, ground sausage and fresh orange slices. Mild- moderate oral residue was observed with spoon bites of oat meal and coughing observed x1 immediately after a swallow. This coughing suspected to be secondary to talking/swallowing and distraction, however, cannot rule out aspiration. With reduced distraction and 1:1 cues to take a bite,swallow, sip water, chin tuick,swallow, the patient was able to resume intake without difficulty. Again, with trials of steel cut oat meal, she did also exhibit a mildly reduced vocal quality. With throat clear and liquid wash, this resolved. No difficulty observed with ground meat or oranges. No difficulty obesred with thin liquid via cup or straw. Recommend continue with soft diet, per patient's request. Downgrade from mechancial soft to dysphagia advanced for consistent soft diet. Spoke with meteorological aide regarding the texture of the patient's oatmeal. Dietary recommended that the patient receive cream of wheat or instant oatmeal to reduce the gritty texture that the patient struggled with. Assessment Patient Response to Treatment Good Rehab Potential Good Assessment of Improvement Patient continues to exhibit reduced congitive status and decreased awareness of safety. As a result, she does not independently problem solve or implement safe swallowing behaviors. To ensure her safety, she will continue to need 1:1 supervision with all intake. When following strict swallowing behavior of single bites/sips with throat clear/ double swallow, she is successful in tolerating her meal without difficulty. However, when she becomes distracted, she starts to show difficulty - wet vocal qualtiy and coughing. Again, she does not independently problem solve by implementing throat clear, chewing food longer, taking a drink to clear her throat. Continue current diet with strict supervision to ensure the safety of her swallowing. She continues to demonstrate reduced cognitive function. Plan to speak with family regarding the patient's mental baseline and determine if a congitive evaluation is warranted. Diet Recommendations Recommendations Downgrade Diet Order Liquids Order Thin Diet Order Dysphagia Advanced Medication Recommendations As Tolerated Whole in Carrier Additional Dietary Needs 1:1 Supervision Encourage to Self-Feed Reminders to Use Strategies Aspiration Precautions Recommended Precautions Upright at 90 Degrees Alternate Liquids/Solids Frequent Rest Periods Small Bites/Sips Chin Tuck Double Swallow Lingual Sweep Check for Pocketing Treatment Plan Placement Recommendation after Discharge Intermediate Facility Appropriate for Continued Therapy Yes Therapy Recommendations Continue to monitor patient's safety during intake. Cue for lingual sweep to check for any residue in dentures. Cue for thorough mastication and liquid wash to clear pharynx of residue. Cue to remain alert during meals. Monitor patient's cognition. Speak with famliy regarding her baseline and determine if a congitive evaluation is warranted. Dysphagia Goals Patient will tolerate a mechanical soft diet and thin liquids with ease in mastication and consistent ability to tolerate without difficulty or overt s/s of aspiration. Patient will perform lingual sweep to check for any oral residue that may remain in loose fitting dentures and/or plates. Patient will maintian alertness during intake to reduce risk of aspiraiton.
--- NOTE | 2017-11-05 11:18 | PT.IPTN ---
Physical Therapy Treatment Note M2 PT-IP Current Condition Start: 11/02/17 16:49 Freq: Status: Active Protocol: Document 11/04/17 09:30 TMS (Rec: 11/04/17 10:22 TMS [id number]) Physical Therapy Current Condition Current Condition Evaluation Date 11/02/17 Treatment Diagnosis GLF Onset Date 11/02/17 Precautions Other Precautions falls M3 PT-IP Subjective Start: 11/02/17 16:49 Freq: Status: Active Protocol: Document 11/05/17 11:09 AB (Rec: 11/05/17 11:18 AB [id number]) Subjective Physical Therapy Visit Type Type Treatment Note Visit Start Time 10:05 Visit Stop Time 10:26 Total Visit Minutes 21 Number of MATERIAL STRESS TESTER Visits 0 Physical Therapy Visit Comments Patient Comments pt agreeable to do therapy stated that she is feeling better today M4 PT-IP Mobility and Gait Start: 11/02/17 16:49 Freq: Status: Active Protocol: Document 11/05/17 11:09 AB (Rec: 11/05/17 11:18 AB [id number]) Gait Assessment Gait Gait Assistance Required: Minimum Assistance Distance (Feet) (feet) 50 Able to Maintain Weight Bearing Status Yes During Gait Assistive Devices Assistive Device Gait Belt Front Wheeled Walker Orthotic/Prosthetic Devices or Brace: No Gait Deviations General Gait Pattern Decreased Stride Length Decreased Feet Clearance Factors Limiting Gait Function Factors Limiting Gait Function Decreased Activity Tolerance Decreased Strength Poor Balance Poor Safety Awareness Comments Gait Comments c/o bilateral knee weakness but stated that it is chronic. pt presents with unsteady gait especially with turning. M5 PT-IP Objective Assessments Start: 11/02/17 16:49 Freq: Status: Active Protocol: Document 11/03/17 11:25 [facility] (Rec: 11/03/17 12:51 RCC [email or web address]) Orientation Orientation/Cognition Level of Alertness Alert Orientation Name Birthday Date Place Gross Range of Motion Upper Extremity ROM Impairments B shoulder flexion to 150 deg. Strength Lower Extremity Strength Assessment Left Impaired Hip flexion 4/5 Knee extension 4/5, flexion 3+/5 Comments Strength Comments LLE weakness appears to be mainly due to pain Coordination Assessment Gross Coordination Gross Coordination WNL Sensation Assessment Sensation Gross Sensation WNL Comments Sensation Comments pt did c/o B toe numbness sitting on EOB, but WNL in supine M6 PT-IP Treatment Start: 06/16/18 16:49 Freq: Status: Active Protocol: Document 11/04/17 14:00 RS (Rec: 11/04/17 14:07 RS [id number]) Physical Therapy Treatment Exercises Exercises Ankle Pumps Gluteal Sets Quad Sets Heel Slides Supine Hip Abduction Education Education Provided Safety M7 PT-IP Assessment and Plan Start: 11/02/17 16:49 Freq: Status: Active Protocol: Document 11/05/17 11:09 AB (Rec: 11/05/17 11:18 AB [id number]) PT Summary Assessment and Plan Potential Rehabilitation Potential Good Summary Impairments Pain ROM Strength Balance Coordination Sensation Tone Cognition Bed Mobility Transfers Gait Activity Tolerance Progress Towards Goals Slow Progress due to Medical Issues Assessment Summary pt progressing slowly but continues to require assist with ambulation and presents with unsteady gait. pt will require SNF rehab to improve mobility. Goals Bed Mobility Goal Standby Assistance Transfer Goal Standby Assistance Gait Goal Standby Assistance Gait Distance 150 ft Frequency of Treatment Frequency Of Treatment Twice a Day Treatment Plan Physical Therapy Treatment Plan Bed Mobility Training Transfer Training Gait Training Therapeutic Exercise Balance Retraining Post Op Education Discharge Planning Hot or Cold Pack Neuromuscular Re-ed Coordination Retraining Manual Therapy Other Recommendations and Next Treatment progress gait distance Focus Recommendations To Nursing Amount of Assist Needed 1 Person Assist Discharge Recommendations PT Discharge Recommendations SNF Rehab
--- NOTE | 2017-11-05 11:48 | PM.PN.1 ---
Subjective Date Patient Seen: 11/05/17 Time Patient Seen: 11:49 Interval history: Patient is sitting up in the chair at the bedside in no acute distress. She is awake and alert but confused as to what transpired to require this hospitalization. Exam Vital Signs (past 8 hours): Vital Signs - 8 hr 11/05/17 05:29 11/05/17 07:00 11/05/17 07:10 Temperature 98.3 F 98.0 F Pulse Rate 80 77 Respiratory Rate 17 13 Blood Pressure 202/95 H 168/92 H Pulse Oximetry 95 96 95 Pulse Oximetry 95 Oxygen Delivery Method Room Air Oxygen Flow Rate 0 Const General: cooperative and comfortable Nutritional Appearance: overweight Orientation: alert and awake Other: Patient appears to have underlying dementia HENMI Head: normal to inspection, normocephalic and atraumatic Eyes General: appearance normal, both eyes and all related structures Pupils: PERRL and pupil size (2.0 mm) Neck Neck: normal visual inspection and supple Other: No JVD or lymphadenopathy Chest Chest: normal inspection of the chest Resp Effort & Inspection: normal respiratory effort and able to speak in complete sentences Auscultation: clear to auscultation bilaterally Other: On room air Cardio Rhythm: abnormal rhythm (Atrial fibrillation) Heart Sounds: S1 normal and S2 normal Other: 3/6 systolic murmur heard best over right sternal border. GI Inspection: normal to inspection and obesity Palpation: soft Auscultation: normal bowel sounds Other: Nontender to palpation Other: Unremarkable Back/Spine/Pelvis Other: Complaints of pain on her right hip area with walking and with palpation. Skin General: no rashes or lesions noted, dry skin and warm Neuro General: alert and awake Speech: speech normal Motor: muscle tone normal throughout Sensory Exam: no sensory deficits noted Extrem General: normal to inspection, capillary refill normal and no pedal edema Psych Appearance: grossly normal Speech and Movement: speech and movement normal Mood: congruent mood Affect: normal affect Attitude: cooperative Other: She appears awake and alert and to be back to her baseline. There are no focal sensory or motor deficits. Objective Labs Result Diagrams: 11/04/17 05:23 11/04/17 05:23 Assessment & Plan Plan: Assessment/Plan Narrative: 1. Ground level fall with weakness she evidently has a history of falls and has been unable to get back up the this time. Seems to be improving. She has less pain in the right hip today. Physical therapy will continue working with her. Speech therapy cleared her yesterday. There is some question from the family about her confusion and they think she is listing to the left her CT was normal. MRI did not show any acute infarction. There is age-related atrophy and chronic deep white matter ischemic changes. Her neck angiogram showed a 70% stenosis of the right internal carotid at the bifurcation. There is minimal narrowing at the origin of the left ICA. There is appearance and doses at the origin of the right vertebral artery as well. I will obtain x-rays of the hip and pelvis today to rule out any obvious fractures. 2. Diabetes type 2 blood sugar over 400 when she came in she may have skipped a few doses of insulin while she was on the floor. Plan to resume her insulin. Blood sugars a.c. have been in the mid to high 200s. She is being supplemented with NovoLog. 3. AFib: She has controlled ventricular response in the 70s. On chronic anticoagulation. Her Cardizem and Xarelto have been restarted. 4. Hypertension: She has been somewhat hypertensive over the past 24 hr with blood pressures ranging from 150/75 to 202/95. I will increase her losartan to b.i.d.. 5. Dementia: Patient appears to have underlying dementia which may have service during this acute hospitalization. She continues to present with moderate short-term memory difficulty and reduced orientation. Word-finding is difficult for her as well. She also has reduced problem solving abilities. According to speech therapy, she appears to not have safe swallowing behaviors at this point and will need one-to-one supervision with all intake. 6. Code status she desires to be DNR 7. Disposition: Mrs. Rosario's family and care management are working together to come up with a safe discharge plan. I have attempted to contact Marley Rosario this morning to update her on her mother's condition but was sent directly to [facility] Deep Vein Thrombosis/Pulmonary Embolism Present on Admission: No
--- NOTE | 2017-11-05 12:03 | P.PN_ITS ---
Subjective Date Patient Seen: 11/05/17 Time Patient Seen: 11:49 Interval history: Patient is sitting up in the chair at the bedside in no acute distress. She is awake and alert but confused as to what transpired to require this hospitalization. Exam Vital Signs (past 8 hours): Vital Signs - 8 hr 3 11/05/17 05:29 11/05/17 07:00 11/05/17 07:10 Temperature 98.3 F 98.0 F Pulse Rate 80 77 Respiratory Rate 17 13 Blood Pressure 202/95 H 168/92 H Pulse Oximetry 95 96 95 Pulse Oximetry 95 Oxygen Delivery Method Room Air Oxygen Flow Rate 0 Const General: cooperative and comfortable Nutritional Appearance: overweight Orientation: alert and awake Other: Patient appears to have underlying dementia HENWA Head: normal to inspection, normocephalic and atraumatic Eyes General: appearance normal, both eyes and all related structures Pupils: PERRL and pupil size (2.0 mm) Neck Neck: normal visual inspection and supple Other: No JVD or lymphadenopathy Chest Chest: normal inspection of the chest Resp Effort & Inspection: normal respiratory effort and able to speak in complete sentences Auscultation: clear to auscultation bilaterally Other: On room air Cardio Rhythm: abnormal rhythm (Atrial fibrillation) Heart Sounds: S1 normal and S2 normal Other: 3/6 systolic murmur heard best over right sternal border. GI Inspection: normal to inspection and obesity Palpation: soft Auscultation: normal bowel sounds Other: Nontender to palpation Other: Unremarkable Back/Spine/Pelvis Other: Complaints of pain on her right hip area with walking and with palpation. Skin General: no rashes or lesions noted, dry skin and warm Neuro General: alert and awake Speech: speech normal Motor: muscle tone normal throughout Sensory Exam: no sensory deficits noted Extrem General: normal to inspection, capillary refill normal and no pedal edema Psych Appearance: grossly normal Speech and Movement: speech and movement normal Mood: congruent mood Affect: normal affect Attitude: cooperative Other: She appears awake and alert and to be back to her baseline. There are no focal sensory or motor deficits. Objective Labs Result Diagrams: 11/04/17 05:23 11/04/17 05:23 Assessment & Plan Plan: Assessment/Plan Narrative: 1. Ground level fall with weakness she evidently has a history of falls and has been unable to get back up the this time. Seems to be improving. She has less pain in the right hip today. Physical therapy will continue working with her. Speech therapy cleared her yesterday. There is some question from the family about her confusion and they think she is listing to the left her CT was normal. MRI did not show any acute infarction. There is age-related atrophy and chronic deep white matter ischemic changes. Her neck angiogram showed a 70 % stenosis of the right internal carotid at the bifurcation. There is minimal narrowing at the origin of the left ICA. There is appearance and doses at the origin of the right vertebral artery as well. I will obtain x-rays of the hip and pelvis today to rule out any obvious fractures. 2. Diabetes type 2 blood sugar over 400 when she came in she may have skipped a few doses of insulin while she was on the floor. Plan to resume her insulin. Blood sugars a.c. have been in the mid to high 200s. She is being supplemented with NovoLog. 3. AFib: She has controlled ventricular response in the 70s. On chronic anticoagulation. Her Cardizem and Xarelto have been restarted. 4. Hypertension: She has been somewhat hypertensive over the past 24 hr with blood pressures ranging from 150/75 to 202/95. I will increase her losartan to b.i.d.. 5. Dementia: Patient appears to have underlying dementia which may have service during this acute hospitalization. She continues to present with moderate short-term memory difficulty and reduced orientation. Word-finding is difficult for her as well. She also has reduced problem solving abilities. According to speech therapy, she appears to not have safe swallowing behaviors at this point and will need one-to-one supervision with all intake. 6. Code status she desires to be DNR 7. Disposition: Mrs. Rosario's family and care management are working together to come up with a safe discharge plan. I have attempted to contact Marley Rosario this morning to update her on her mother's condition but was sent directly to [facility]. Quality VTE Deep Vein Thrombosis/Pulmonary Embolism Present on Admission: No
[2017-11-05 12:43] LABS: Glucose 380 mg/dL (80-110)
--- NOTE | 2017-11-05 13:00 | PC.NURSE ---
Blood sugar: Patient's blood sugar before lunch was 407 (POC testing). Lab draw ordered and done per protocol. 22 units Novolog given per orders. This contract writer informed VITALIY Ramos re: the same. No new orders at this time.
--- NOTE | 2017-11-05 13:22 | OT.IP.TRT ---
Occupational Therapy Treatment Note M2 OT-IP Current Condition Start: 11/04/17 12:43 Freq: Status: Active Protocol: Document 11/04/17 11:09 ADH (Rec: 11/04/17 13:11 ADH [id number]) Occupational Therapy Current Condition Current Condition Evaluation Date 11/04/17 Treatment Diagnosis confusion Diagnosis Onset Date 11/03/17 Post Operative Precautions Other Precautions falls M3 OT- IP Subjective and Pain Start: 11/04/17 12:43 Freq: Status: Active Protocol: Document 11/05/17 12:54 PJM (Rec: 11/05/17 13:21 PJM [email or web address]) OT- Subjective Occupational Therapy Visit Type Type Treatment Note Visit Start Time 12:12 Visit Stop Time 12:54 Total Visit Minutes 42 Occupational Therapy Visit Comments Patient Comments Everything on my R side hurts, especially my arm. OT Pain Assessment Pain When Pain Assessed After Treatment Pain Present Pain Present Pain Reported Location Right Elbow Intensity 5 Scale Used Numeric (1 - 10) Description Aching Management Techniques Re-positioning M4 OT- IP ADL's Start: 11/04/17 12:43 Freq: Status: Active Protocol: Document 11/05/17 12:54 PJM (Rec: 11/05/17 13:21 PJM [email or web address]) OT [id number] General Evaluation Self-Feeding Ability Standby Assistance Areas Needing Assistance Opening Containers Comments OT Self-Feeding Comments intermittent supervision, now on mechanical soft diet; needs meal tray set up fro unfamiliar containers M6 OT- IP Functional Cognition Start: 11/04/17 12:43 Freq: Status: Active Protocol: Document 11/05/17 12:54 PJM (Rec: 11/05/17 13:21 PJM [email or web address]) Cognitive Factors Limiting Selfcare Function Cognitive Ability Level of Alertness Alert Patient Orientation Name Birthday Month Year Ability to Follow Commands Able to Follow One Step Commands Memory Description Short Term Impaired Safety Awareness Underestimates Need for Assistance Problem Solving Ability Unable to Identify Errors Needs Assist to Identify Solutions Executive Function Ability Unable to Remember Details Cognitive Tests MOCA Pt scored 11/30 on MOCA indicating significant cognitive impairment. Pt had difficulty with orientation facts and was unable to recall her address, apartment number, phone number. Pt unable to name any of her medications, other than insulin. She also had difficulty with divided attention, constructional praxis, and had mild deficits in hand and number placement on clock drawing. Pt also demonstrates impairments in short term memory, working memory, word generation and abstractions. Cognitive Comments Cognitive Assessment Comments Pt performs slowly. M7 OT- IP Mobility and Balance Start: 11/04/17 12:43 Freq: Status: Active Protocol: Document 11/05/17 12:54 PJM (Rec: 11/05/17 13:21 PJM [email or web address]) OT- Bed Mobility Assessment Sit to Supine Sit to Supine Assist Contact Guard Assistance OT-Transfer Assessment Sit to and From Stand Sit to and from Stand Minimal Assistance Transfers Transfer Ability Minimal Assistance Technique Transfer Destination Bed Transfer Technique Stand Step Pivot Devices Transfer Assistive Devices Gait Belt Front Wheeled Walker OT- Balance Assessment Sitting Balance and Reactions Static Sitting Balance Ability Good Dynamic Sitting Balance Ability Fair Standing Balance and Reactions Static Standing Balance Ability Fair M8 OT- IP Objective Assessments Start: 11/04/17 12:43 Freq: Status: Active Protocol: Document 11/04/17 11:09 ADH (Rec: 11/04/17 13:11 ADH [id number]) OT Gross Range of Motion Upper Extremity Range of Motion Assessment Within Functional Limits ROM Impairments Pt with difficulty following ROM demonstration, mild perseveration observed. 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 Pt reported pain in R elbow with MMT testing. OT- Coordination Assessment Upper Extremity Finger Tapping Test Within Functional Limits M9 OT- IP Assessment and Plan Start: 11/04/17 12:43 Freq: Status: Active Protocol: Document 11/05/17 12:54 PJM (Rec: 11/05/17 13:21 PJM [email or web address]) OT Summary Assessment and Plan Potential Rehabilitation Potential Good Summary OT Impairments Pain Balance Functional Cognition Functional Mobility Grooming Dressing Toileting Bathing Toilet Transfers Shower Transfers Progress Towards Goals Slow Progress due to Pain Assessment Summary Pt presents with significant cognitive deficits on MOCA, as described above, which raise concern about pt's ability to manage her daily medications in independent living setting. Pt continues to require assist with grooming, dressing , bathing and toileting as well as all functional mobility with FWW. She is not safe to return to living alone at this time. Pt would benefit from further subacute rehab at d/c if funding source can be found. Goals Grooming Goal Contact Guard Assistance Dressing Goal Contact Guard Assistance Toileting Goal Standby Assistance Bathing Goal Minimal Assistance Toilet Transfer Goal Contact Guard Assistance Shower Transfer Goal Minimal Assistance Days to Meet Goals 7 Frequency of Treatment Frequency Of Treatment Once a Day Treatment Plan OT Treatment Plan ADL Training Functional Mobility Patient/Family Education Discharge Planning Discharge Recommendations OT Discharge Recommendations SNF Rehab vs 24 hr assist
--- NOTE | 2017-11-05 16:02 | CM.DPC ---
DCP: continued: met at length this afternoon with MEHDI Roach, her (pt's son) and pt. Observed pt earlier this afternoon ambulating in the halls with PT, appeared to be moving well and was not expressing pain. Discussed referral done by UR team to [facility] for outside review of admission status: determination: obs appropriate. Family continue to express frustration re same but Marley notes appreciation for all that has been done in her mother's behalf. At this point plan is for pt to return to [facility]. Family continue to say they cannot stay with her and that she does not manage her insulin well. Marley has repeated several times over last few days that this has been going on for years, even when she lived with family.. Plan now for HH RN/PT/OT and CHIEF COMPLIANCE OFFICER to follow. Received confirmation form Melody Meyer/SHANAE that Medicaid denia had been received and a long term care social worker will be sent to wherever pt goes at d/c to continue to assess for higher level of care. Marley/MEHDI will be their primary contact and will work to get pt into a setting that better supports her needs. Dr. Alva is updated and agreeable to same. Marley will pick pt up tomorrow at 1500 after she gets off shift and has a bit of time to sleep. P: set up HH tomorrow and follow closely.
--- NOTE | 2017-11-05 16:51 | PT.IPTN ---
Physical Therapy Treatment Note M2 PT-IP Current Condition Start: 11/02/17 16:49 Freq: Status: Active Protocol: Document 11/04/17 09:30 TMS (Rec: 11/04/17 10:22 TMS [email or web address]) Physical Therapy Current Condition Current Condition Evaluation Date 11/02/17 Treatment Diagnosis GLF Onset Date 11/02/17 Precautions Other Precautions falls M3 PT-IP Subjective Start: 11/02/17 16:49 Freq: Status: Active Protocol: Document 11/05/17 14:04 DCW (Rec: 11/05/17 16:51 DCW [id number]) Subjective Physical Therapy Visit Type Type Treatment Note Visit Start Time 14:04 Visit Stop Time 14:26 Total Visit Minutes 22 Number of SPARES SCHEDULER Visits 0 Physical Therapy Visit Comments Patient Comments Pt reports she is feeling better, and would like to try to walk more than she did this morning. M4 PT-IP Mobility and Gait Start: 11/02/17 16:49 Freq: Status: Active Protocol: Document 11/05/17 14:04 DCW (Rec: 11/05/17 16:51 DCW [id number]) PT-Bed Mobility Assessment Supine to Sit Supine to Sit Minimal Assistance 1 Person Assistance Scooting Scooting to Edge of Bed Contact Guard Assistance PT-Transfer Assessment Sit to and From Stand Sit to and from Stand Contact Guard Assistance Equipment Transfer Assistive Device Gait Belt Front Wheeled Walker Gait Assessment Gait Gait Assistance Required: Contact Guard Assist Distance (Feet) (feet) 310 Able to Maintain Weight Bearing Status Yes During Gait Assistive Devices Assistive Device Gait Belt Front Wheeled Walker Gait Deviations General Gait Pattern Decreased Stride Length Decreased Feet Clearance Factors Limiting Gait Function Factors Limiting Gait Function Decreased Activity Tolerance Decreased Strength Poor Balance Poor Safety Awareness Comments Gait Comments Pt displayed slow dipika, but had no complaints with increased distance, and after walking to one end of the [place] and back, requested continuing further down the [place]. M7 PT-IP Assessment and Plan Start: 11/02/17 16:49 Freq: Status: Active Protocol: Document 11/05/17 14:04 DCW (Rec: 11/05/17 16:51 DCW [id number]) PT Summary Assessment and Plan Potential Rehabilitation Potential Good Summary Impairments Pain ROM Strength Balance Coordination Sensation Tone Cognition Bed Mobility Transfers Gait Activity Tolerance Progress Towards Goals Slow Progress due to Medical Issues Assessment Summary Pt made excellent improvement since this AM, greatly increased tolerance to ambulation and improved gait safety. Goals Bed Mobility Goal Standby Assistance Transfer Goal Standby Assistance Gait Goal Standby Assistance Gait Distance 150 ft Days to Meet Goals 2 Frequency of Treatment Frequency Of Treatment Twice a Day Treatment Plan Physical Therapy Treatment Plan Bed Mobility Training Transfer Training Gait Training Therapeutic Exercise Balance Retraining Post Op Education Discharge Planning Hot or Cold Pack Neuromuscular Re-ed Coordination Retraining Manual Therapy Other Recommendations and Next Treatment progress gait distance Focus Recommendations To Nursing Amount of Assist Needed 1 Person Assist Discharge Recommendations PT Discharge Recommendations SNF Rehab
[2017-11-05] MEDS: INSULIN GLARGINE 100 UNIT/ML 3ML PEN 40 UNIT SUBCUT (21:30)
[2017-11-06] VITALS (11 sets, daily range): BP systolic 128–179; BP diastolic 58–93; PULSE 61–90; RESP 16–20; TEMP 36.6–37.3; O2SAT 92–100
[2017-11-06] MEDS: LOSARTAN 50 MG TABLET PO ×2 (08:41→21:37)
[2017-11-06] MEDS: VENLAFAXINE ER 75 MG CAP 150 MG PO (08:42)
[2017-11-06] MEDS: INSULIN ASPART 100 UNIT/ML INSULN PEN SUBCUT ×4 (08:43→21:38)
[2017-11-06] MEDS: INSULIN ASPART 100 UNIT/ML INSULN PEN 10 UNIT SUBCUT ×3 (08:43→16:53)
[2017-11-06] MEDS: dilTIAZem CD 120 MG CAP PO (08:45)
[2017-11-06] MEDS: RIVAROXABAN 10 MG TABLET 20 MG PO (08:45)
[2017-11-06] MEDS: OXYBUTYNIN 5 MG TABLET PO ×2 (08:45→21:37)
--- NOTE | 2017-11-06 08:59 | PM.DS.1 ---
History of Present Illness Date Patient Seen: 11/06/17 Time Patient Seen: 08:59 Chief complaint: GLF Narrative: She lay there for an unknown amount of time. The patient is a 82-year-old female who lives alone. She was found all on the floor this morning by neighbor. She said she slipped out of bed last night literally she was she is trying to stand up and then her feet went out from under her she slid down the bed. She laid there for an unknown amount of time. Her back is hurting. She has no other complaints. She is on Pradaxa and does have AFib. and is currently in AFib. She denies hitting her head there is no sign of head trauma. She is able to move all of her extremities. Discharge Providers Date of admission: 11/02/17 16:48 Consults: 11/02/17 16:09 Consult to Physical Therapy Evaluate & Treat Comment: Physician Instructions: Evaluate and Treat 11/03/17 06:16 Consult to Obstetrics Technician Routine Comment: discharge planning 11/03/17 12:38 Consult to Speech Therapy Evaluate & Treat Comment: NPO for increased coughing with meal Physician Instructions: Evaluate and treat 11/04/17 08:15 Consult to Occupational Therapy Evaluate & Treat Comment: Physician Instructions: Evaluate and treat Discharge provider: VITALIY Nichols Summary Discharge Diagnosis: 1. Ground level fall with weakness 2. Diabetes type 2 3. Atrial fibrillation 4. Hypertension 5. Dementia Hospital Course: This is a summary of a 4 day hospitalization for this pleasant 82-year-old patient who came in with weakness after suffering a ground level fall at home. She was evaluated for source of her weakness. She did not meet the criteria for inpatient admission and is placed on observation. Head CT and brain MRI were negative for acute infarct findings. EKG revealed atrial fibrillation with controlled ventricular response and no further dysrhythmias. Glucose on admission was elevated over 450. No other electrolyte abnormalities. She was seen in evaluated by Physical therapy and Occupational therapy and speech therapy. She has continued to improve in her ambulation and strength during her hospitalization is now able to walk more than 150 ft. with 1 person assist. Her type 2 diabetes has been managed by a.c. meal supplementation and increasing her baseline Lantus to 40 units at bedtime. She has remained on her home medications of diltiazem and Xarelto for her atrial fibrillation and has had no need for adjustment of these medications as she reads remained in atrial fibrillation with a controlled ventricular response in the 70s to 80s. Her hypertension has been managed with home medications as well but an increase in her diastolic pressure in the 90s was observed so she was increased on her losartan to b.i.d. schedule. It is believed that she has a baseline dementia that may been uncovered by this hospitalization. Her Rush score was 11/30. She has been awake alert during this hospitalization but continues to be confused as to what preceded her hospitalization had and has short-term memory loss. There have been frequent communications between managed care and the medical power of estate planning attorney, her daughter, regarding placement after discharge. The daughter has agreed to have the patient discharged this afternoon and take her back to her residence which is [facility]. Status at Discharge Functional status at discharge: uses cane/walker Overall status at discharge: patient is progressing back to baseline Time Spent with Patient Greater than 30 minutes Exam Vital Signs (past 8 hours): Vital Signs - 8 hr 11/06/17 04:58 11/06/17 06:26 Temperature 97.8 F Pulse Rate 90 Respiratory Rate 16 Blood Pressure 179/93 H Pulse Oximetry 97 92 Pulse Oximetry 92 Oxygen Delivery Method Room Air Oxygen Flow Rate 0 Narrative Exam Narrative: General: cooperative and comfortable Nutritional Appearance: overweight Orientation: alert and awake Other: Patient appears to have underlying dementia [facility] Head: normal to inspection, normocephalic and atraumatic Eyes General: appearance normal, both eyes and all related structures Pupils: PERRL and pupil size (2.0 mm) Neck Neck: normal visual inspection and supple Other: No JVD or lymphadenopathy Chest Chest: normal inspection of the chest Resp Effort & Inspection: normal respiratory effort and able to speak in complete sentences Auscultation: clear to auscultation bilaterally Other: On room air Cardio Rhythm: abnormal rhythm (Atrial fibrillation) Heart Sounds: S1 normal and S2 normal Other: 3/6 systolic murmur heard best over right sternal border. GI Inspection: normal to inspection and obesity Palpation: soft Auscultation: normal bowel sounds Other: Nontender to palpation Other: Unremarkable Back/Spine/Pelvis Other: Complaints of pain on her right hip area with walking and with palpation. Skin General: no rashes or lesions noted, dry skin and warm Neuro General: alert and awake Speech: speech normal Motor: muscle tone normal throughout Sensory Exam: no sensory deficits noted Extrem General: normal to inspection, capillary refill normal and no pedal edema Psych Appearance: grossly normal Speech and Movement: speech and movement normal Mood: congruent mood Affect: normal affect Attitude: cooperative Other: She appears awake and alert and to be back to her baseline. There are no focal sensory or motor deficits. Objective Labs Result Diagrams: 11/04/17 05:23 11/06/17 08:30 Labs: Laboratory Results - last 24 hr 11/05/17 12:11 Glucose 380 H D PROCEDURE: MR STROKE Pre- and post-contrast brain MRI, non-contrast brain MR angiogram, pre- and postcontrast neck MR angiogram INDICATIONS: stroke symptoms TECHNIQUE: Brain: Noncontrast axial T1 spin echo, axial T2 fast spin echo, sagittal and axial FLAIR, coronal T2 fast spin echo, axial gradient echo, axial diffusion and ADC through the brain. After the administration of contrast, axial 3D VIBE of the cranial vasculature and brain. Brain MRA: Non-contrast 3-D time of flight MR angiogram, with multiple euckews-topkayets-dozpohsnec (MIP) reformats performed. Neck MRA: Axial and sagittal TruFISP through the neck. Coronal dynamic MR angiogram during administration of contrast in the arterial and venous phases, with 3-dimenstional azruewm-ngswsztmx-cgefsqpzrr (MIP) reformats constructed from subtraction images. COMPARISON: [facility], US, CAROTID ARTERY DOPPLER BILAT, 01/06/2016, 18:13. [facility], MR, STROKE PROTOCOL, 01/06/2016, 12:57. [facility], CT, HEAD WITHOUT CONTRAST, 03/22/2016, 20:13. [facility], CT, HEAD WITHOUT CONTRAST, 06/11/2017, 14:40. [facility], CT, CT HEAD/BRAIN WO CON, 11/02/2017, 14:04. FINDINGS: Image quality: Good. BRAIN: CSF spaces: Ventricles are normal in size and shape. Basal cisterns are patent. No extra-axial fluid collections. Brain: No intracranial bleeds or mass effects. Pfeiffer-white matter interface is normal. Diffusion weighted images show no acute ischemic insults. There are bilateral basal ganglia and right frontal chronic ischemic infarcts as before. There is also a chronic lacunar infarct in the right side of the valente. Age related cerebral atrophy and chronic deep white matter ischemic changes again noted. Brainstem appears normal. Normal intravascular flow voids are present. No abnormal intracranial enhancement. Skull and face: Calvarial marrow signal is normal. Orbits appear normal. Sinuses: Sinuses and mastoids are clear. BRAIN MR ANGIOGRAM: Anterior circulation: There is considerable signal loss on the noncontrast enhanced images of the intracranial vessels, which appear intact on post contrast views. There may be a small focal stenosis in the left M1 segment. Intracranial internal carotid arteries are patent with atheromatous changes left greater than right. The flow within the A1 segment of the paired anterior cerebral arteries is diminished and possibly atretic on the right. The flow within the middle cerebral arteries is normal and symmetric postcontrast, possible small stenosis on the left in the M1 segment. The anterior communicating artery is not seen. No occlusions, or aneurysms. Posterior circulation: The visualized portions of the vertebral arteries demonstrate normal caliber, and join to form a normal appearing basilar artery. The flow within the posterior cerebral arteries is normal and symmetric. No stenoses, occlusions, or aneurysms. NECK MR ANGIOGRAM: Carotids: Great vessels demonstrate a conventional anatomy as they arise from the aortic arch. The origins of the common carotid arteries appear patent. The calibers and courses of both common carotid arteries are normal. The bifurcation regions again show a 70% stenosis at the origin of the right ICA in a less than 50% stenosis on the left. Both external carotid arteries show stenoses at the origins.. The internal carotid arteries demonstrate normal course and caliber. Posterior circulation: The origins of the vertebral arteries appear patent. There is ostial stenosis at the origin of the right vertebral. The proximal left vertebral is tortuous, as the origin not well seen. More superior portions of both vertebral arteries demonstrate normal course and caliber, and join to form a normal appearing basilar artery. Miscellaneous: Subclavian arteries appear patent. Pre-contrast images through the neck show no soft tissue abnormalities. IMPRESSION: BRAIN MRI: 1. No acute infarct is identified. 2. Age-related atrophy and chronic deep white matter ischemic changes. 3. Several chronic lacunar infarcts are again evident in the right frontal lobe, both basal ganglia and right valente BRAIN MR ANGIOGRAM: Noncontrast intracranial images are suboptimal with considerable signal dropout. Atheromatous changes in the carotid siphons and probable focal 50% stenosis in the proximal left middle cerebral artery NECK MR ANGIOGRAM: 1. Estimated 70% stenosis origin of the right internal carotid artery at the bifurcation, unchanged. Minimal narrowing at the origin of the left ICA. 2. Apparent stenosis at the origin of the right vertebral artery with tortuosity in the proximal left vertebral. Left vertebral may be dominant. Dictated by: Kelechi Mcmahan M.D. on 11/04/2017 at 11:55 Approved by: Kelechi Mcmahan M.D. on 11/04/2017 at 12:16 PROCEDURE: CT HEAD/BRAIN WO CON INDICATIONS: found down on Xarelto TECHNIQUE: Noncontrast 4.5 mm thick angled axial sections acquired from the foramen magnum to the vertex, with coronal and sagittal reformats. For radiation dose reduction, the following was used: automated exposure control, adjustment of mA and/or kV according to patient size. COMPARISON: [facility], CT, HEAD WITHOUT CONTRAST, 06/11/2017, 14:40. [facility], CT, HEAD WITHOUT CONTRAST, 03/22/2016, 20:13. [facility], MR, STROKE PROTOCOL, 01/06/2016, 12:57. FINDINGS: Image quality: Excellent. CSF spaces: Basal cisterns are patent. No extra-axial fluid collections. The ventricles are symmetric in size and shape. Brain: No intracranial bleeds or masses. There is cerebral volume loss for age, with resultant ventricular and sulcal prominence. There are periventricular and deep white matter chronic small vessel ischemic changes. Old basal ganglia small lacunar infarcts versus perivascular spaces are stable. There is intracranial internal carotid artery and vertebral artery atherosclerosis. Skull and face: Calvarium and visualized facial bones appear intact, without suspicious lesions. Sinuses: Visualized sinuses and mastoids are clear. IMPRESSION: No acute intracranial disease process. No intracranial hemorrhage. Dictated by: Yanique Schulte MD, PhD on 11/02/2017 at 14:58 Approved by: Yanique Schulte MD, PhD on 11/02/2017 at 15:00 Discharge Plan Discharge Plan Patient Disposition: Home Health Service Provider Discharge Instructions Diet: Carb-consistent/Diabetic Diet comment: Mechanical soft Activity: Up with assistance. Must use walker. Patient should obtain medical alert system. Oxygen: Room air Discharge Data Attending Provider: Sudhir Alva Admit Date/Time: 11/02/17 16:48 Quality VTE Deep Vein Thrombosis/Pulmonary Embolism Present on Admission: No
--- NOTE | 2017-11-06 09:11 | ST.IPTN ---
[facility] Dysphagia Treatment [facility] Dysphagia Treatment Start: 11/04/17 12:28 Freq: Status: Active Protocol: Document 11/06/17 08:51 TLC (Rec: 11/06/17 09:10 TLC [id number]) Dysphagia Treatment Session Time Visit Start Time 08:15 Visit Stop Time 08:40 Total Visit Minutes 25 Setting Assessment Location Acute Care Visit Type Note Type Treatment Note Patient Information Subjective Observations Patient seen sitting in chair in room with morning meal. She was able to state her name and , but unable to recall date or name of place; however , in response to being told she was discharging back to [facility] today she stated I don't think that's the right place for me. She went on to express her wishes for more attentive care and her fears of falling and not being found until the next day. Nursing and physician were in the room during this conversation. No family present in the room. Treatment Liquids Trialed Thin Solids Trialed Dysphagia Advanced Administration Type Self-Feeding Oral Strategies Upright at 90 degrees Controlled Bite/Sip Size Alternate Liquids/Solids Pharyngeal Phase Strategies Sitting Upright (90 deg) Chin Tuck Small Bites and Sips Alternate Liquids/Solids Additional Dysphagia Treatment Slow rate of intake Strategies Treatment Activities Patient's dentures in place, though loose fitting. She reports she uses denture adhesive at her home at [facility]; however, she does not have adhesive with her at the hospital. She self-fed cream of wheat and recalled her interaction with [employer] [facility]ECER, Anya yesterday and difficulty with oatmeal getting stuck in her teeth and mouth. Patient was observed to independently implement slow rate and small bites/sips. She said she is trying to be more careful when she eats. No overt s/sx of aspiration observed. Discussed use of a calendar to keep track of the day, appointments and birthdays. Patient reports she does have a calendar at [facility], but she does not keep track of birthdays because there are too many to remember. Assessment Patient Response to Treatment Good Rehab Potential Good Assessment of Improvement No family present in room to inquire about patient's cognitive baseline; however, patient's score of 11/30 on MOCA administered by OT indicates significant cognitive impairment. In addition to this, patient wishes to receive a higher level of care. Diet Recommendations Recommendations Continue Current Diet Liquids Order Thin Diet Order Dysphagia Advanced Medication Recommendations As Tolerated Whole in Carrier Additional Dietary Needs 1:1 Supervision Encourage to Self-Feed Reminders to Use Strategies Aspiration Precautions Recommended Precautions Upright at 90 Degrees Alternate Liquids/Solids Frequent Rest Periods Small Bites/Sips Chin Tuck Double Swallow Lingual Sweep Check for Pocketing Treatment Plan Placement Recommendation after Discharge Residential Facility Appropriate for Continued Therapy Yes Therapy Recommendations Per report, patient to discharge back to [facility] this afternoon. She would benefit from home health ST in order to provide patient with compensatory strategies for improved memory and problem solving in order to increase her safety. Dysphagia Goals Patient will tolerate a dysphagia advanced diet and thin liquids with ease in mastication and consistent ability to tolerate without difficulty or overt s/s of aspiration. Patient will perform lingual sweep to check for any oral residue that may remain in loose fitting dentures and/or plates. - met Patient will maintain alertness during intake to reduce risk of aspiration. - met Visit Care Team Role Provider Type Ingrid Mcguire DO Emergency Provider Physician Address: [address] [place] [address], [id number] Sudhir Alva MD Admit Provider Physician Attending Provider Address: [address] [place] [address], [id number]
[2017-11-06 09:13] LABS: Blood Urea Nitrogen 11 mg/dL (7-17); Calcium 9.2 mg/dL (8.4-10.2); Carbon Dioxide 31 mmol/L (22-32); Chloride 97 mmol/L (98-107); Estimated Glomerular Filt Rate > 60.0 mL/min (>60); Glucose 281 mg/dL (80-110); HEMOLYSIS < 15 (0-50); Sodium 136 mmol/L (137-145)
--- NOTE | 2017-11-06 09:15 | P.DS_ITS ---
History of Present Illness Date Patient Seen: 11/06/17 Time Patient Seen: 08:59 Chief complaint: GLF Narrative: She lay there for an unknown amount of time. The patient is a 82-year -old female who lives alone. She was found all on the floor this morning by neighbor. She said she slipped out of bed last night literally she was she is trying to stand up and then her feet went out from under her she slid down the bed. She laid there for an unknown amount of time. Her back is hurting. She has no other complaints. She is on Pradaxa and does have AFib. and is currently in AFib. She denies hitting her head there is no sign of head trauma. She is able to move all of her extremities. Discharge Providers Date of admission: 11/02/17 16:48 Consults: 11/02/17 16:09 Consult to Physical Therapy Evaluate & Treat Comment: Physician Instructions: Evaluate and Treat 11/03/17 06:16 Consult to Washery Engineer Routine Comment: discharge planning 11/03/17 12:38 Consult to Speech Therapy Evaluate & Treat Comment: NPO for increased coughing with meal Physician Instructions: Evaluate and treat 11/04/17 08:15 Consult to Occupational Therapy Evaluate & Treat Comment: Physician Instructions: Evaluate and treat Discharge provider: VITALIY Nichols Summary Discharge Diagnosis: 1. Ground level fall with weakness 2. Diabetes type 2 3. Atrial fibrillation 4. Hypertension 5. Dementia Hospital Course: This is a summary of a 4 day hospitalization for this pleasant 82-year-old patient who came in with weakness after suffering a ground level fall at home. She was evaluated for source of her weakness. She did not meet the criteria for inpatient admission and is placed on observation. Head CT and brain MRI were negative for acute infarct findings. EKG revealed atrial fibrillation with controlled ventricular response and no further dysrhythmias. Glucose on admission was elevated over 450. No other electrolyte abnormalities. She was seen in evaluated by Physical therapy and Occupational therapy and speech therapy. She has continued to improve in her ambulation and strength during her hospitalization is now able to walk more than 150 ft. with 1 person assist. Her type 2 diabetes has been managed by a.c. meal supplementation and increasing her baseline Lantus to 40 units at bedtime. She has remained on her home medications of diltiazem and Xarelto for her atrial fibrillation and has had no need for adjustment of these medications as she reads remained in atrial fibrillation with a controlled ventricular response in the 70s to 80s. Her hypertension has been managed with home medications as well but an increase in her diastolic pressure in the 90s was observed so she was increased on her losartan to b.i.d. schedule. It is believed that she has a baseline dementia that may been uncovered by this hospitalization. Her Lanier score was 11/30. She has been awake alert during this hospitalization but continues to be confused as to what preceded her hospitalization had and has short-term memory loss. There have been frequent communications between managed care and the medical power of admitted attorneys, her daughter, regarding placement after discharge. The daughter has agreed to have the patient discharged this afternoon and take her back to her residence which is [facility]. Status at Discharge Functional status at discharge: uses cane/walker Overall status at discharge: patient is progressing back to baseline Time Spent with Patient Greater than 30 minutes Exam Vital Signs (past 8 hours): Vital Signs - 8 hr 3 11/06/17 04:58 11/06/17 06:26 Temperature 97.8 F Pulse Rate 90 Respiratory Rate 16 Blood Pressure 179/93 H Pulse Oximetry 97 92 Pulse Oximetry 92 Oxygen Delivery Method Room Air Oxygen Flow Rate 0 Narrative Exam Narrative: General: cooperative and comfortable Nutritional Appearance: overweight Orientation: alert and awake Other: Patient appears to have underlying dementia [facility] Head: normal to inspection, normocephalic and atraumatic Eyes General: appearance normal, both eyes and all related structures Pupils: PERRL and pupil size (2.0 mm) Neck Neck: normal visual inspection and supple Other: No JVD or lymphadenopathy Chest Chest: normal inspection of the chest Resp Effort & Inspection: normal respiratory effort and able to speak in complete sentences Auscultation: clear to auscultation bilaterally Other: On room air Cardio Rhythm: abnormal rhythm (Atrial fibrillation) Heart Sounds: S1 normal and S2 normal Other: 3/6 systolic murmur heard best over right sternal border. GI Inspection: normal to inspection and obesity Palpation: soft Auscultation: normal bowel sounds Other: Nontender to palpation Other: Unremarkable Back/Spine/Pelvis Other: Complaints of pain on her right hip area with walking and with palpation. Skin General: no rashes or lesions noted, dry skin and warm Neuro General: alert and awake Speech: speech normal Motor: muscle tone normal throughout Sensory Exam: no sensory deficits noted Extrem General: normal to inspection, capillary refill normal and no pedal edema Psych Appearance: grossly normal Speech and Movement: speech and movement normal Mood: congruent mood Affect: normal affect Attitude: cooperative Other: She appears awake and alert and to be back to her baseline. There are no focal sensory or motor deficits. Objective Labs Result Diagrams: 11/04/17 05:23 11/06/17 08:30 Labs: Laboratory Results - last 24 hr 11/05/17 12:11 Glucose 380 H D PROCEDURE: MR STROKE Pre- and post-contrast brain MRI, non-contrast brain MR angiogram, pre- and postcontrast neck MR angiogram INDICATIONS: stroke symptoms TECHNIQUE: Brain: Noncontrast axial T1 spin echo, axial T2 fast spin echo, sagittal and axial FLAIR, coronal T2 fast spin echo, axial gradient echo, axial diffusion and ADC through the brain. After the administration of contrast, axial 3D VIBE of the cranial vasculature and brain. Brain MRA: Non-contrast 3-D time of flight MR angiogram, with multiple vhygevw-czxvusiaq-fcgxqmpbjk (MIP) reformats performed. Neck MRA: Axial and sagittal TruFISP through the neck. Coronal dynamic MR angiogram during administration of contrast in the arterial and venous phases, with 3- dimenstional ppxrpxz-idlfoqpcg-buewsvpbcn (MIP) reformats constructed from subtraction images. COMPARISON: [facility], US, CAROTID ARTERY DOPPLER BILAT, 01/06/2016, 18: 13. [facility], MR, STROKE PROTOCOL, 01/06/2016, 12:57. [facility], CT, HEAD WITHOUT CONTRAST, 03/22/2016, 20:13. [facility], CT, HEAD WITHOUT CONTRAST, 2017, 14:40. [facility], CT, CT HEAD/BRAIN WO CON, 11/02/2017, 14:04. FINDINGS: Image quality: Good. BRAIN: CSF spaces: Ventricles are normal in size and shape. Basal cisterns are patent. No extra-axial fluid collections. Brain: No intracranial bleeds or mass effects. Pfeiffer-white matter interface is normal. Diffusion weighted images show no acute ischemic insults. There are bilateral basal ganglia and right frontal chronic ischemic infarcts as before. There is also a chronic lacunar infarct in the right side of the valente. Age related cerebral atrophy and chronic deep white matter ischemic changes again noted. Brainstem appears normal. Normal intravascular flow voids are present. No abnormal intracranial enhancement. Skull and face: Calvarial marrow signal is normal. Orbits appear normal. Sinuses: Sinuses and mastoids are clear. BRAIN MR ANGIOGRAM: Anterior circulation: There is considerable signal loss on the noncontrast enhanced images of the intracranial vessels, which appear intact on post contrast views. There may be a small focal stenosis in the left M1 segment. Intracranial internal carotid arteries are patent with atheromatous changes left greater than right. The flow within the A1 segment of the paired anterior cerebral arteries is diminished and possibly atretic on the right. The flow within the middle cerebral arteries is normal and symmetric postcontrast, possible small stenosis on the left in the M1 segment. The anterior communicating artery is not seen. No occlusions, or aneurysms. Posterior circulation: The visualized portions of the vertebral arteries demonstrate normal caliber, and join to form a normal appearing basilar artery. The flow within the posterior cerebral arteries is normal and symmetric. No stenoses, occlusions, or aneurysms. NECK MR ANGIOGRAM: Carotids: Great vessels demonstrate a conventional anatomy as they arise from the aortic arch. The origins of the common carotid arteries appear patent. The calibers and courses of both common carotid arteries are normal. The bifurcation regions again show a 70% stenosis at the origin of the right ICA in a less than 50% stenosis on the left. Both external carotid arteries show stenoses at the origins.. The internal carotid arteries demonstrate normal course and caliber. Posterior circulation: The origins of the vertebral arteries appear patent. There is ostial stenosis at the origin of the right vertebral. The proximal left vertebral is tortuous, as the origin not well seen. More superior portions of both vertebral arteries demonstrate normal course and caliber, and join to form a normal appearing basilar artery. Miscellaneous: Subclavian arteries appear patent. Pre-contrast images through the neck show no soft tissue abnormalities. IMPRESSION: BRAIN MRI: 1. No acute infarct is identified. 2. Age-related atrophy and chronic deep white matter ischemic changes. 3. Several chronic lacunar infarcts are again evident in the right frontal lobe , both basal ganglia and right valente BRAIN MR ANGIOGRAM: Noncontrast intracranial images are suboptimal with considerable signal dropout. Atheromatous changes in the carotid siphons and probable focal 50% stenosis in the proximal left middle cerebral artery NECK MR ANGIOGRAM: 1. Estimated 70% stenosis origin of the right internal carotid artery at the bifurcation, unchanged. Minimal narrowing at the origin of the left ICA. 2. Apparent stenosis at the origin of the right vertebral artery with tortuosity in the proximal left vertebral. Left vertebral may be dominant. Dictated by: Kelechi Mcmahan M.D. on 11/04/2017 at 11:55 Approved by: Kelechi Mcmahan M.D. on 11/04/2017 at 12:16 PROCEDURE: CT HEAD/BRAIN WO CON INDICATIONS: found down on Xarelto TECHNIQUE: Noncontrast 4.5 mm thick angled axial sections acquired from the foramen magnum to the vertex, with coronal and sagittal reformats. For radiation dose reduction, the following was used: automated exposure control, adjustment of mA and/or kV according to patient size. COMPARISON: [facility], CT, HEAD WITHOUT CONTRAST, 06/11/2017, 14:40. [facility], CT, HEAD WITHOUT CONTRAST, 03/22/2016, 20:13. [facility], MR, STROKE PROTOCOL, 01/06/2016, 12:57. FINDINGS: Image quality: Excellent. CSF spaces: Basal cisterns are patent. No extra-axial fluid collections. The ventricles are symmetric in size and shape. Brain: No intracranial bleeds or masses. There is cerebral volume loss for age , with resultant ventricular and sulcal prominence. There are periventricular and deep white matter chronic small vessel ischemic changes. Old basal ganglia small lacunar infarcts versus perivascular spaces are stable. There is intracranial internal carotid artery and vertebral artery atherosclerosis. Skull and face: Calvarium and visualized facial bones appear intact, without suspicious lesions. Sinuses: Visualized sinuses and mastoids are clear. IMPRESSION: No acute intracranial disease process. No intracranial hemorrhage. Dictated by: Yanique Schulte MD, PhD on 11/02/2017 at 14:58 Approved by: Yanique Schulte MD, PhD on 11/02/2017 at 15:00 Discharge Plan Discharge Plan Patient Disposition: Home Health Service Provider Discharge Instructions Diet: Carb-consistent/Diabetic Diet comment: Mechanical soft Activity: Up with assistance. Must use walker. Patient should obtain medical alert system. Oxygen: Room air Discharge Data Attending Provider: Sudhir Alva Admit Date/Time: 11/02/17 16:48 Quality VTE Deep Vein Thrombosis/Pulmonary Embolism Present on Admission: No
--- NOTE | 2017-11-06 11:21 | CM.DPC ---
Addendum entered by Genet Ferrari LPN 11/06/17 16:15: Spoke with Melody Rajput [facility] [phone]. She confirmed receipt of I and R paperwork and wondered if pt has left today as planned. Marley did arrive at 1500 but with decision on her part that pt not safe for a return to [facility] and her fear that pt would come to harm with fall or other event if she did so. Pt will now continue on in hospital until tomorrow. Marley will try to get tomorrow night off so that she can be with pt initially when pt goes home. Melody Rajput' contact number is given to Marley and to CM display department manager Marianna Carrillo who will follow this case tomorrow. Melody clarifies that, if pt does remain in the hospital setting, a manager social responsibility will be sent to assess pt for increased level of care within 5 business days. If pt goes to a community setting she will be assessed within 6 weeks for same. She cautions that the next step would be the search for either caregivers or an accepting medicaid facility. Marianna is updated re above. Followup call is also into [place] to see what her team decided re consideration of pt's admission under a medicaid pending situation. MEHDI Roach has made arranged to be here again tomorrow by 1400 to continue the d/c planning discussion with CM display department manager Marianna. Marley did receive a call from Bree FAUSTIN RN as part of their new referral process. Will call Constance/Bree FAUSTIN now to let her know the d/c did not happen today. May happen tomorrow. P: now in process...CM team will continue to follow. Original Note: DCP: continued: Bree FAUSTIN RN/OT/PT/RAIL PROJECT ENGINEER/LINER REROLL TENDER is now all set up. Constance confirms they can see pt tomorrow. Face/Face and orders plus clinical are faxed now. OT Татьяна saw pt this morning and included shower in the eval. She states pt did extremely well and in terms of functional mobility should do well with return to [facility] with ongoing HH services. Faxed Intake and Referral paperwork to [facility] as per direction from Melody Meyer and as part of the initiation of a manager social responsibility followup at [facility] so assess for higher level of care needs. Dr. Alva and VITALIY Ramos have confirmed the d/c order for today. Will see POA at 1500 and go over all of above. P: home today, HH 1500. Followup as per above
--- NOTE | 2017-11-06 11:55 | PT.IPTN ---
Physical Therapy Treatment Note M2 PT-IP Current Condition Start: 11/02/17 16:49 Freq: Status: Active Protocol: Document 11/04/17 09:30 TMS (Rec: 11/04/17 10:22 TMS [email or web address]) Physical Therapy Current Condition Current Condition Evaluation Date 11/02/17 Treatment Diagnosis GLF Onset Date 11/02/17 Precautions Other Precautions falls M3 PT-IP Subjective Start: 11/02/17 16:49 Freq: Status: Active Protocol: Document 11/06/17 11:04 CLB (Rec: 11/06/17 11:54 CLB [email or web address]) Subjective Physical Therapy Visit Type Type Treatment Note Visit Start Time 11:04 Visit Stop Time 11:27 Total Visit Minutes 23 Number of FILTERER Visits 1 Physical Therapy Visit Comments Patient Comments Pt willing to walk in [place]. Pt recalled being in [place] and at the hospital. Therapy Pain Assessment Pain When Pain Assessed During Mobility Pain Present Pain Present Pain Reported Location Right Elbow Pain Behaviors Facial Grimacing Moaning M4 PT-IP Mobility and Gait Start: 11/02/17 16:49 Freq: Status: Active Protocol: Document 11/06/17 11:04 CLB (Rec: 11/06/17 11:54 CLB [email or web address]) PT-Transfer Assessment Sit to and From Stand Sit to and from Stand Minimal Assistance Moderate Assistance 1 Person Assistance Equipment Transfer Assistive Device Gait Belt Front Wheeled Walker Transfers Transfer Destination Chair Transfer Ability Level of Assist Moderate Assistance Comments Mobility Comments Pt had difficulty to full stand due to pain in elbow. Took pt three attempts to stand. Gait Assessment Gait Gait Assistance Required: Contact Guard Assist Distance (Feet) (feet) 200 Able to Maintain Weight Bearing Status Yes During Gait Assistive Devices Assistive Device Gait Belt Front Wheeled Walker Gait Deviations General Gait Pattern Decreased Stride Length Decreased Feet Clearance Factors Limiting Gait Function Factors Limiting Gait Function Decreased Activity Tolerance Decreased Strength Poor Balance Poor Safety Awareness Comments Gait Comments Pt ambulates very slowly, pt c /o mild fatigue but wanted to continue walking. M5 PT-IP Objective Assessments Start: 11/02/17 16:49 Freq: Status: Active Protocol: Document 11/03/17 11:25 RCC (Rec: 11/03/17 12:51 RCC [email or web address]) Orientation Orientation/Cognition Level of Alertness Alert Orientation Name Birthday Date Place Gross Range of Motion Upper Extremity ROM Impairments B shoulder flexion to 150 deg. Strength Lower Extremity Strength Assessment Left Impaired Hip flexion 4/5 Knee extension 4/5, flexion 3+/5 Comments Strength Comments LLE weakness appears to be mainly due to pain Coordination Assessment Gross Coordination Gross Coordination WNL Sensation Assessment Sensation Gross Sensation WNL Comments Sensation Comments pt did c/o B toe numbness sitting on EOB, but WNL in supine M6 PT-IP Treatment Start: 11/02/17 16:49 Freq: Status: Active Protocol: Document 11/06/17 11:04 CLB (Rec: 11/06/17 11:54 CLB [email or web address]) Physical Therapy Treatment Exercises Exercises Ankle Pumps Gluteal Sets Quad Sets M7 PT-IP Assessment and Plan Start: 11/02/17 16:49 Freq: Status: Active Protocol: Document 11/06/17 11:04 CLB (Rec: 11/06/17 11:54 CLB [email or web address]) PT Summary Assessment and Plan Potential Rehabilitation Potential Good Summary Impairments Pain ROM Strength Balance Coordination Sensation Tone Cognition Bed Mobility Transfers Gait Activity Tolerance Progress Towards Goals Slow Progress due to Medical Issues Assessment Summary Pt requiring increased assist with sit-stand but ambulated ~ 200ft slowly and with good safety awareness. Goals Bed Mobility Goal Standby Assistance Transfer Goal Standby Assistance Gait Goal Standby Assistance Gait Distance 150 ft Days to Meet Goals 2 Frequency of Treatment Frequency Of Treatment Twice a Day Treatment Plan Physical Therapy Treatment Plan Bed Mobility Training Transfer Training Gait Training Therapeutic Exercise Balance Retraining Post Op Education Discharge Planning Hot or Cold Pack Neuromuscular Re-ed Coordination Retraining Manual Therapy Other Recommendations and Next Treatment progress gait distance Focus Recommendations To Nursing Amount of Assist Needed 1 Person Assist Discharge Recommendations PT Discharge Recommendations SNF Rehab
--- NOTE | 2017-11-06 14:21 | OT.IP.TRT ---
Addendum entered and electronically signed by Corrina Bynum OT 11/06/17 15:31: Recommend Pt obtain [employer] or similiar call system for home setting. Original Note: Occupational Therapy Treatment Note M2 OT-IP Current Condition Start: 11/04/17 12:43 Freq: Status: Active Protocol: Document 11/04/17 11:09 ADH (Rec: 11/04/17 13:11 ADH [id number]) Occupational Therapy Current Condition Current Condition Evaluation Date 11/04/17 Treatment Diagnosis confusion Diagnosis Onset Date 11/03/17 Post Operative Precautions Other Precautions falls M3 OT- IP Subjective and Pain Start: 11/04/17 12:43 Freq: Status: Active Protocol: Document 11/06/17 10:16 PJM (Rec: 11/06/17 14:20 PJM [id number]) OT- Subjective Occupational Therapy Visit Type Type Treatment Note Visit Start Time 09:20 Visit Stop Time 10:16 Total Visit Minutes 56 OT Pain Assessment Pain Present Pain Present Denied Pain M4 OT- IP ADL's Start: 11/04/17 12:43 Freq: Status: Active Protocol: Document 11/06/17 10:16 PJM (Rec: 11/06/17 14:20 PJM [id number]) OT ADL-Grooming General Evaluation Grooming Ability Independent Comments OT Grooming Comments Pt combed hair seated in chair after shower. OT ADL-Dressing General Eval Lower Body Dressing Ability Standby Assistance Areas Needing Assistance Underpants/Brief Socks Assistive Devices Dressing Assistive Devices Long Handled Shoe Horn Provider Relations Specialist Sock Aid Comments OT Dressing Comments Pt SBA to don and doff L sock. Provided education re: use of mass spectrometry manager and sock aid to increase indep with R sock due to hip stiffness. Provided mass spectrometry manager, sock aid, long shoe horn at pt request. OT ADL-Toileting General Evaluation Toileting Ability Standby Assistance Devices Toileting Assistive Devices Grab Bars Raised Toilet Seat Comments OT Toileting Comments Pt SBA to doff brief seated on toilet. Pt donned clean brief with SBA after shower. Pt indep with trina care. OT ADL-Bathing Bathing Type Bathing Type Shower General Evaluation Bathing Ability Minimal Assistance Devices Bathing Equipment Hand Held Shower Sprayer Shower Chair without Arms Grab Bars Comments OT Bathing Comments Pt stood for entire shower with no LOB using grab bars as per home set up. pt sat on shower seat to dry off. Has shower seat, grab bars and long bath sponge at home. M6 OT- IP Functional Cognition Start: 11/04/17 12:43 Freq: Status: Active Protocol: Document 11/06/17 10:16 PJM (Rec: 11/06/17 14:20 PJ [id number]) Cognitive Factors Limiting Selfcare Function Cognitive Ability Attention Span Ability Capable of Focused Attention Ability to Follow Commands Able to Follow One Step Commands Cognitive Comments Cognitive Assessment Comments Pt needs min verbal cues to problem solve shower set up in unfamiliar setting. Anticipate pt will do better at home. M7 OT- IP Mobility and Balance Start: 11/04/17 12:43 Freq: Status: Active Protocol: Document 11/06/17 10:16 PJM (Rec: 11/06/17 14:20 [facility] [id number]) OT- Bed Mobility Assessment Supine to Sit Supine to Sit Assist Moderate Assistance Scooting Scooting to Edge of Bed Independent OT-Transfer Assessment Sit to and From Stand Sit to and from Stand Standby Assistance Transfers Transfer Ability Standby Assistance Technique Transfer Destination Chair Shower Stall Toilet Devices Transfer Assistive Devices Gait Belt Front Wheeled Walker Comments Mobility Comments Pt states she will sleep in recliner at home. Recommend HH therapist work on bed mobility with pt in her own bed at home. May benefit from bedrail at home. OT- Gait Assessment Gait Gait Assistance Required: Standby Assistance Distance (Feet) (feet) 30 Assistive Devices Assistive Device Gait Belt Front Wheeled Walker OT- Balance Assessment Sitting Balance and Reactions Static Sitting Balance Ability Good Dynamic Sitting Balance Ability Good Standing Balance and Reactions Static Standing Balance Ability Good Dynamic Standing Balance Ability Good Comments Other Balance Tests/Deviations/Treatment Pt using grab bars for balance : while standing to shower. M8 OT- IP Objective Assessments Start: 11/04/17 12:43 Freq: Status: Active Protocol: Document 11/04/17 11:09 ADH (Rec: 11/04/17 13:11 ADH [id number]) OT Gross Range of Motion Upper Extremity Range of Motion Assessment Within Functional Limits ROM Impairments Pt with difficulty following ROM demonstration, mild perseveration observed. OT Strength Upper Extremity Strength Assessment Bilaterally Impaired Shoulder 4-/5 Elbow 3+/5 Forearm 4-/5 Hand Corporate Director Talent Assessment Strength Hand Dominance Mixed Comments Strength Comments Pt has large bruise on R elbow , consistent with previous fall. Pt reported pain in R elbow with MMT testing. OT- Coordination Assessment Upper Extremity Finger Tapping Test Within Functional Limits M9 OT- IP Assessment and Plan Start: 11/04/17 12:43 Freq: Status: Active Protocol: Document 11/06/17 10:16 PJM (Rec: 11/06/17 14:20 PJM [id number]) OT Summary Assessment and Plan Potential Rehabilitation Potential Good Summary OT Impairments Functional Mobility Dressing Bathing Progress Towards Goals Progressing Toward Goals Assessment Summary Pt demonstrating increased activity tolerance, increased indep in lower body dressing with use of AED,and was able to stand to shower self with SBA and no LOB. Pt had no c/o pain today. Pt appears to be approaching her baseline level of function. D/C plan is now back to [facility] with HH services per telehealth case manager chart notes. Discharge Recommendations OT Discharge Recommendations Home Home Health Other Discharge Recommendations Recommend HH OT work with pt on lower body dressing with new AED, showering, cold meal prep and medication management strategies in home setting.
--- NOTE | 2017-11-06 15:47 | PC.NURSE ---
1500 completed the discharge papers with the Pt. gave Pt prescriptions, & instructions. Await arrival of family at to take Pt home at approx 1500. Dcd tele, and SL. 1515 No family as yet, gave report to oncoming nancy Milton RN.
[2017-11-06] MEDS: INSULIN GLARGINE 100 UNIT/ML 3ML PEN 40 UNIT SUBCUT (21:37)
[2017-11-07] VITALS (8 sets, daily range): BP systolic 140–184; BP diastolic 77–88; PULSE 74–88; RESP 16–22; TEMP 36.3–37.3; O2SAT 94–97
--- NOTE | 2017-11-07 02:50 | PC.NURSE ---
Addendum entered by Libra Juan R.N. 11/07/17 06:05: Complains of pain in left hand radiating up arm. Hand appears swollen and is tender to touch. Slight erythema noted at site of previous IV; medicated with Tylenol and ice applied for comfort. Original Note: Patient is oriented but forgetful and has delayed responses. Breath sounds diminished but CTA with RA sat of 97%. HR irregular with hx of afib. Denies nausea. BT present and abdomen is soft. Is both continent and incontinent. Has been turning self but needs 2 assist + walker to transfer to [facility]. Is very slow and weak. Initially complained of discomfort in right lower leg but once on BSC denied pain stating it resolved with stretching her leg out. Abrasions noted on right elbow and has bruising on right extremities. Fall risk score is high and bed alarm is activated.
[2017-11-07] MEDS: ACETAMINOPHEN 325 MG TABLET PO ×2 (06:01→10:08)
[2017-11-07] MEDS: INSULIN ASPART 100 UNIT/ML INSULN PEN 10 UNIT SUBCUT ×3 (08:18→17:01)
[2017-11-07] MEDS: INSULIN ASPART 100 UNIT/ML INSULN PEN SUBCUT ×4 (08:19→21:55)
[2017-11-07] MEDS: VENLAFAXINE ER 75 MG CAP 150 MG PO (08:20)
[2017-11-07] MEDS: RIVAROXABAN 10 MG TABLET 20 MG PO (08:20)
[2017-11-07] MEDS: dilTIAZem CD 120 MG CAP PO (08:21)
[2017-11-07] MEDS: LOSARTAN 50 MG TABLET PO ×2 (08:21→21:52)
[2017-11-07] MEDS: OXYBUTYNIN 5 MG TABLET PO ×2 (08:21→21:52)
--- NOTE | 2017-11-07 08:30 | ST.IPTN ---
SHIPPING SUPPORT CLERK Dysphagia Treatment SHIPPING SUPPORT CLERK Dysphagia Treatment Start: 11/04/17 12:28 Freq: Status: Active Protocol: Document 11/07/17 08:19 TLC (Rec: 11/07/17 08:30 TLC [id number]) Dysphagia Treatment Session Time Visit Start Time 07:50 Visit Stop Time 08:15 Total Visit Minutes 25 Setting Assessment Location Acute Care Visit Type Note Type Treatment Note Patient Information Subjective Observations Patient seen sitting in bed. She was agreeable to sit up for morning meal. HOB raised to nearly 90 degrees. She was conversant, though forgetful in conversation, stopping to ask me to repeat a question on two occasions. Treatment Liquids Trialed Thin Solids Trialed Dysphagia Advanced Administration Type Self-Feeding Oral Strategies Upright at 90 degrees Controlled Bite/Sip Size Alternate Liquids/Solids Pharyngeal Phase Strategies Sitting Upright (90 deg) Chin Tuck Small Bites and Sips Alternate Liquids/Solids Additional Dysphagia Treatment Slow rate of intake Strategies Treatment Activities Dulce's orientation to place and date improved from yesterday. She correctly stated the month and year. She was not able to come up with the city name, place of residence or her age. She stated It's too early for my brain..it'll come to me. Dulce required set-up assistance, but was independent in self-feeding a dysphagia advanced diet ( scrambled eggs, hash browns, toast) and thin liquids. She was observed to dip her toast in her coffee to soften it. She implemented a slow rate and small bites/sips independently. She required cues to alternate solids and liquids in order to clear residue from the oral cavity intermittently. Assessment Patient Response to Treatment Good Rehab Potential Good Assessment of Improvement Dulce continues to exhibit impaired cognition affecting her orientation and safety awareness. She is; however, implementing strategies during meals including slow rate and small bites/sips. No signs of aspiration observed during the meal. Diet Recommendations Recommendations Continue Current Diet Liquids Order Thin Diet Order Dysphagia Advanced Medication Recommendations As Tolerated Whole in Carrier Additional Dietary Needs 1:1 Supervision Encourage to Self-Feed Reminders to Use Strategies Aspiration Precautions Recommended Precautions Upright at 90 Degrees Alternate Liquids/Solids Frequent Rest Periods Small Bites/Sips Chin Tuck Double Swallow Lingual Sweep Check for Pocketing Treatment Plan Placement Recommendation after Discharge [facility] Facility Therapy Recommendations Per report, patient to discharge back to [facility] this afternoon. She would benefit from home health ST in order to provide patient with compensatory strategies for improved memory and problem solving in order to increase her safety including recall and implementation of strategies during meals. Dysphagia Goals Patient will tolerate a dysphagia advanced diet and thin liquids with ease in mastication and consistent ability to tolerate without difficulty or overt s/s of aspiration. - goal met Patient will perform lingual sweep to check for any oral residue that may remain in loose fitting dentures and/or plates. - met Patient will maintain alertness during intake to reduce risk of aspiration. - met Visit Care Team Role Provider Type Ingrid Mcguire DO Emergency Provider Physician Address: [address] [place] [address], [id number] Sudhir Alva MD Admit Provider Physician Attending Provider Address: [address] [place] [address], [id number]
--- NOTE | 2017-11-07 11:10 | OT.IP.TRT ---
Occupational Therapy Treatment Note M2 OT-IP Current Condition Start: 11/04/17 12:43 Freq: Status: Active Protocol: Document 11/04/17 11:09 ADH (Rec: 11/04/17 13:11 ADH [id number]) Occupational Therapy Current Condition Current Condition Evaluation Date 11/04/17 Treatment Diagnosis confusion Diagnosis Onset Date 11/03/17 Post Operative Precautions Other Precautions falls M3 OT- IP Subjective and Pain Start: 11/04/17 12:43 Freq: Status: Active Protocol: Document 11/07/17 09:35 PJM (Rec: 11/07/17 11:10 PJM [id number]) OT- Subjective Occupational Therapy Visit Type Type Treatment Note Visit Start Time 08:25 Visit Stop Time 09:35 Total Visit Minutes 70 Notes Pt did not d/c yesterday as planned. Occupational Therapy Visit Comments Patient Comments My left hand really hurts indicating area where IV was removed yesterday. RN notified . Pt c/o pain when using L hand for any functional task. OT Pain Assessment Pain When Pain Assessed After Treatment Pain Present Pain Present Pain Reported Location left hand Scale Used Pt does not rate on 10 pt scale due to confusion. M4 OT- IP ADL's Start: 11/04/17 12:43 Freq: Status: Active Protocol: Document 11/07/17 09:35 PJM (Rec: 11/07/17 11:10 PJM [id number]) OT BFM-Njxs-Cjixnes General Evaluation Self-Feeding Ability Independent OT ADL-Grooming General Evaluation Grooming Ability Standby Assistance Comments OT Grooming Comments Pt standing at sink for face washing and hair combing with no LOB; leans on sink. Pt initially forgot to take FWW with her when leaving sink, but self corrected without cues. OT ADL-Dressing General Eval Upper Body Dressing Ability Minimal Assistance Lower Body Dressing Ability Minimal Assistance Areas Needing Assistance Pull-Over Shirt Underpants/Brief Shoes Assistive Devices Dressing Assistive Devices Dish Up Person Comments OT Dressing Comments Pt dressing in street clothes today for first time. Pt had difficulty pulling tight camisole down in back requiring min assist. Pt confused re: use of new singing messenger and attempting to use it inappropriately for upper body dressing. Pt having difficulty donning shoes and attempting to stand up with foot over tongue of shoe. Pt needing min cues to remember to fasten velcro closures on shoes. Did not introduce use of sock aid and long shoe horn today due to pt's confusion with new learning re: singing messenger. OT ADL-Toileting General Evaluation Toileting Ability Minimal Assistance Areas Needing Assistance Manage Clothing Comments OT Toileting Comments Pt more confused today about sequencing of toileting tasks. Pt needing verbal cues to remove soiled brief before attempting to don clean one and needing cues re: sequence of adding additional incontinent pad in brief. M6 OT- IP Functional Cognition Start: 11/04/17 12:43 Freq: Status: Active Protocol: Document 11/07/17 09:35 PJM (Rec: 11/07/17 11:10 PJM [id number]) Cognitive Factors Limiting Selfcare Function Cognitive Ability Ability to Follow Commands Able to Follow One Step Commands Memory Description Short Term Impaired Safety Awareness Decreased Recall of Precautions Problem Solving Ability Unable to Identify Errors Needs Assist to Identify Solutions Executive Function Ability Unable to Filter Distractions Cognitive Comments Cognitive Assessment Comments Pt having difficulty sequencing more complex self care tasks such as dressing in street clothes. Pt unable to identify sequencing errors during brief change task today . Pt forgetting to take FWW and glasses with her when leaving sink area. M7 OT- IP Mobility and Balance Start: 11/04/17 12:43 Freq: Status: Active Protocol: Document 11/07/17 09:35 PJM (Rec: 11/07/17 11:10 PJM [id number]) OT- Bed Mobility Assessment Rolling Level of Assistance Standby Assistance Supine to Sit Supine to Sit Assist Minimal Assistance Scooting Scooting to Edge of Bed Standby Assistance OT-Transfer Assessment Sit to and From Stand Sit to and from Stand Standby Assistance Transfers Transfer Ability Standby Assistance Technique Transfer Destination Chair Toilet Transfer Technique Stand Step Pivot Devices Transfer Assistive Devices Gait Belt Front Wheeled Walker Comments Mobility Comments Pt needing max cues and min assist for supine to sit to roll onto R side first prior to attempting to sit up. Pt using upper bedrail today. Pt SBA for ambulation to bathroom , sink and chair with no LOB noted; but remains a fall risk due to inattention to detail in surroundings and distractability. OT- Gait Assessment Gait Gait Assistance Required: Standby Assistance Distance (Feet) (feet) 25 Assistive Devices Assistive Device Gait Belt Front Wheeled Walker OT- Balance Assessment Sitting Balance and Reactions Static Sitting Balance Ability Good Dynamic Sitting Balance Ability Good Standing Balance and Reactions Static Standing Balance Ability Good Dynamic Standing Balance Ability Fair Comments Other Balance Tests/Deviations/Treatment Pt mildly unsteady when : standing to pull pants over hips but no LOB. M8 OT- IP Objective Assessments Start: 11/04/17 12:43 Freq: Status: Active Protocol: Document 11/04/17 11:09 ADH (Rec: 11/04/17 13:11 ADH [id number]) OT Gross Range of Motion Upper Extremity Range of Motion Assessment Within Functional Limits ROM Impairments Pt with difficulty following ROM demonstration, mild perseveration observed. OT Strength Upper Extremity Strength Assessment Bilaterally Impaired Shoulder 4-/5 Elbow 3+/5 Forearm 4-/5 Hand Dye Tub Operator Strength Hand Dominance Mixed Comments Strength Comments Pt has large bruise on R elbow , consistent with previous fall. Pt reported pain in R elbow with MMT testing. OT- Coordination Assessment Upper Extremity Finger Tapping Test Within Functional Limits M9 OT- IP Assessment and Plan Start: 11/04/17 12:43 Freq: Status: Active Protocol: Document 11/07/17 09:35 PJM (Rec: 11/07/17 11:10 PJM [id number]) OT Summary Assessment and Plan Summary OT Impairments Balance Functional Cognition Functional Mobility Dressing Toileting Bathing Toilet Transfers Shower Transfers Progress Towards Goals Slow Progress due to Activity Tolerance Slow Progress due to Cognition Assessment Summary Pt did not discharge yesterday as expected. Pt presents today with flatter affect and increased confusion compared to yesterday, especially as complexity of self care task increased e.g. pt did better with simple gown yesterday than with street clothes today . Pt also demonstrating decreased performance with brief change today due to difficulty sequencing task. Based on pt's performance today, pt currently needs at least min physical assist with verbal cues for successful completion of dressing and toileting . P.T. has not yet cleared pt for independent ambulation, therefore currently needs 24 hr assist for safety. In addition, based on today's functional cognition status, pt would need assistance with all medication management. Per case management, funding for SNF not available due to pt's current OBS status. Goals Grooming Goal Standby Assistance Dressing Goal Standby Assistance Toileting Goal Standby Assistance Bathing Goal Standby Assistance Toilet Transfer Goal Standby Assistance Shower Transfer Goal Contact Guard Assistance Days to Meet Goals 7 Frequency of Treatment Frequency Of Treatment Once a Day Treatment Plan OT Treatment Plan ADL Training Functional Mobility Patient/Family Education Discharge Planning Discharge Recommendations OT Discharge Recommendations Home with 10/12 Assist Other Discharge Recommendations Home Health OT Home Equipment Needs Dish Up Person provided
--- NOTE | 2017-11-07 11:26 | PT.IPTN ---
Physical Therapy Treatment Note M2 PT-IP Current Condition Start: 11/02/17 16:49 Freq: Status: Active Protocol: Document 11/04/17 09:30 TMS (Rec: 11/04/17 10:22 TMS [email or web address]) Physical Therapy Current Condition Current Condition Evaluation Date 11/02/17 Treatment Diagnosis GLF Onset Date 11/02/17 Precautions Other Precautions falls M3 PT-IP Subjective Start: 11/02/17 16:49 Freq: Status: Active Protocol: Document 11/07/17 11:18 GGD (Rec: 11/07/17 11:26 GGD [id number]) Subjective Physical Therapy Visit Type Type Treatment Note Visit Start Time 10:55 Visit Stop Time 11:15 Total Visit Minutes 25 Number of BRINE TANK TENDER Visits 2 Physical Therapy Visit Comments Patient Comments Pt states her left wrist hurts . Therapy Pain Assessment Pain When Pain Assessed At Rest Pain Present Pain Present Pain Reported M4 PT-IP Mobility and Gait Start: 11/02/17 16:49 Freq: Status: Active Protocol: Document 11/07/17 11:18 GGD (Rec: 11/07/17 11:26 GGD [id number]) PT-Transfer Assessment Sit to and From Stand Sit to and from Stand Moderate Assistance 1 Person Assistance Use of Upper Extremities Equipment Transfer Assistive Device Gait Belt Front Wheeled Walker Transfers Transfer Destination Chair Toilet Transfer Ability Level of Assist Moderate Assistance 1 Person Assistance Use of Upper Extremities Comments Mobility Comments PT needed max cues for safety with transfer and hand placement. Gait Assessment Gait Gait Assistance Required: Contact Guard Assist Distance (Feet) (feet) 100 Gait Deviations General Gait Pattern Decreased Stride Length Decreased Feet Clearance Factors Limiting Gait Function Factors Limiting Gait Function Decreased Activity Tolerance Decreased Strength Poor Balance Poor Safety Awareness Comments Gait Comments Pt need mod cues for FWW management with gait. M5 PT-IP Objective Assessments Start: 11/02/17 16:49 Freq: Status: Active Protocol: Document 11/03/17 11:25 RCC (Rec: 11/03/17 12:51 RCC [id number]) Orientation Orientation/Cognition Level of Alertness Alert Orientation Name Birthday Date Place Gross Range of Motion Upper Extremity ROM Impairments B shoulder flexion to 150 deg. Strength Lower Extremity Strength Assessment Left Impaired Hip flexion 4/5 Knee extension 4/5, flexion 3+/5 Comments Strength Comments LLE weakness appears to be mainly due to pain Coordination Assessment Gross Coordination Gross Coordination WNL Sensation Assessment Sensation Gross Sensation WNL Comments Sensation Comments pt did c/o B toe numbness sitting on EOB, but WNL in supine M6 PT-IP Treatment Start: 11/02/17 16:49 Freq: Status: Active Protocol: Document 11/07/17 11:18 GGD (Rec: 11/07/17 11:26 GG [id number]) Physical Therapy Treatment Exercises Exercises Ankle Pumps Gluteal Sets Quad Sets Education Education Provided Safety M7 PT-IP Assessment and Plan Start: 11/02/17 16:49 Freq: Status: Active Protocol: Document 11/07/17 11:18 GGD (Rec: 11/07/17 11:26 GG [id number]) PT Summary Assessment and Plan Summary Assessment Summary Pt needed increase assistance with Sit to stand. She had poor safety awareness and needs max cues. She tranfers with leaving walk and difficulty ambulateding with FWW without bumping into deshpande or furniture. She a fall risk and not safe to return home alone. Frequency of Treatment Frequency Of Treatment Twice a Day Treatment Plan Other Recommendations and Next Treatment progress gait distance, sit to Focus stand Recommendations To Nursing Amount of Assist Needed 1 Person Assist Discharge Recommendations PT Discharge Recommendations Home with / Assist SNF Rehab
--- NOTE | 2017-11-07 11:32 | PC.NURSE ---
1050 recieved a call from dtr in law, Marley, stating she will not be picking up Dulce today, feels it is too unsafe where Dulce lives to return there. also, Marley states she left that message for Marianna, case mngmnt. I Notified VITALIY Foster.
--- NOTE | 2017-11-07 12:06 | PM.PN.1 ---
Subjective Date Patient Seen: 11/07/17 Time Patient Seen: 12:06 Interval history: Patient sitting at bedside. Appears a little more confused today. Exam Vital Signs (past 8 hours): Vital Signs - 8 hr 11/07/17 04:30 11/07/17 07:00 11/07/17 08:00 Temperature 98.2 F 98.1 F Pulse Rate 80 80 Respiratory Rate 18 16 Blood Pressure 184/80 H 149/83 H Pulse Oximetry 95 96 97 Pulse Oximetry 97 Oxygen Delivery Method Room Air Oxygen Flow Rate 0 Narrative Exam Narrative: General: cooperative and comfortable, somewhat confused to date and place. Nutritional Appearance: overweight Orientation: alert and awake Other: Patient appears to have underlying dementia [facility] Head: normal to inspection, normocephalic and atraumatic Eyes General: appearance normal, both eyes and all related structures Pupils: PERRL and pupil size (2.0 mm) Neck Neck: normal visual inspection and supple Other: No JVD or lymphadenopathy Chest Chest: normal inspection of the chest Resp Effort & Inspection: normal respiratory effort and able to speak in complete sentences Auscultation: clear to auscultation bilaterally Other: On room air Cardio Rhythm: abnormal rhythm (Atrial fibrillation) Heart Sounds: S1 normal and S2 normal Other: 3/6 systolic murmur heard best over right sternal border. GI Inspection: normal to inspection and obesity Palpation: soft Auscultation: normal bowel sounds Other: Nontender to palpation Other: Unremarkable Back/Spine/Pelvis Other: Less complaints of pain on her right hip area today. Skin General: no rashes or lesions noted, dry skin and warm Neuro General: alert and awake Speech: speech normal Motor: muscle tone normal throughout Sensory Exam: no sensory deficits noted Extrem General: normal to inspection, capillary refill normal and no pedal edema Psych Appearance: grossly normal Speech and Movement: speech and movement normal Mood: congruent mood Affect: normal affect Attitude: cooperative Other: She appears awake and alert but is more confused today about sequencing of toileting tasks. There are no focal sensory or motor deficits. Objective Labs Result Diagrams: 11/04/17 05:23 11/06/17 08:30 Assessment & Plan Plan: Assessment/Plan Narrative: 1. Ground level fall with weakness she evidently has a history of falls and has been unable to get back up the this time. Seems to be improving. She has less pain in the right hip today. Physical therapy and Occupational therapy will continue working with her. Speech therapy cleared her yesterday. There is some question from the family about her confusion and they think she is listing to the left. Her CT was normal. MRI did not show any acute infarction. There is age-related atrophy and chronic deep white matter ischemic changes. Her neck angiogram showed a 70% stenosis of the right internal carotid at the bifurcation. There is minimal narrowing at the origin of the left ICA. There is appearance and doses at the origin of the right vertebral artery as well. Hip x-ray showed moderate degenerative changes in both hips. No acute fracture. 2. Diabetes type 2 blood sugar over 400 when she came in she may have skipped a few doses of insulin while she was on the floor. Plan to resume her insulin. Blood sugars a.c. have been in the mid to high 200s. She is being supplemented with NovoLog. Will follow a.m. labs. 3. AFib: She has controlled ventricular response in the 70s. On chronic anticoagulation. Her Cardizem and Xarelto have been restarted. Telemetry will be DC. 4. Hypertension: She has been somewhat hypertensive over the past 24 hr with blood pressures ranging from 150/75 to 202/95. I will increase her losartan to b.i.d.. Blood pressure slightly better today. 5. Dementia: Patient appears to have underlying dementia which may have surfaced during this acute hospitalization. Her Mclean score was 11/30. She continues to present with moderate short-term memory difficulty and reduced orientation. Word-finding is difficult for her as well. She also has reduced problem solving abilities. According to speech therapy, she appears to not have safe swallowing behaviors at this point and will need one-to-one supervision with all intake. She also needs assistance with medication administration, and activities of daily living. While she was walking up to 20 ft with physical therapy she needs increased assistance in standing and is at great risk for falls. 6. Code status she desires to be DNR 7. Disposition: Mrs. Rosario's family and care management are working together to come up with a safe discharge plan. Her [id number] was supposed to come and take her home yesterday but felt it was going to be an unsafe environment for her as the patient lives alone. She will remain in the hospital until evaluated by Medicaid to see if she can qualify for [facility]p facility/mcc. This evaluation should happen within the next 5 days. Quality VTE Deep Vein Thrombosis/Pulmonary Embolism Present on Admission: No
--- NOTE | 2017-11-07 12:12 | P.PN_ITS ---
Subjective Date Patient Seen: 11/07/17 Time Patient Seen: 12:06 Interval history: Patient sitting at bedside. Appears a little more confused today. Exam Vital Signs (past 8 hours): Vital Signs - 8 hr 3 11/07/17 04:30 11/07/17 07:00 11/07/17 08:00 Temperature 98.2 F 98.1 F Pulse Rate 80 80 Respiratory Rate 18 16 Blood Pressure 184/80 H 149/83 H Pulse Oximetry 95 96 97 Pulse Oximetry 97 Oxygen Delivery Method Room Air Oxygen Flow Rate 0 Narrative Exam Narrative: General: cooperative and comfortable, somewhat confused to date and place. Nutritional Appearance: overweight Orientation: alert and awake Other: Patient appears to have underlying dementia HENDC Head: normal to inspection, normocephalic and atraumatic Eyes General: appearance normal, both eyes and all related structures Pupils: PERRL and pupil size (2.0 mm) Neck Neck: normal visual inspection and supple Other: No JVD or lymphadenopathy Chest Chest: normal inspection of the chest Resp Effort & Inspection: normal respiratory effort and able to speak in complete sentences Auscultation: clear to auscultation bilaterally Other: On room air Cardio Rhythm: abnormal rhythm (Atrial fibrillation) Heart Sounds: S1 normal and S2 normal Other: 3/6 systolic murmur heard best over right sternal border. GI Inspection: normal to inspection and obesity Palpation: soft Auscultation: normal bowel sounds Other: Nontender to palpation Other: Unremarkable Back/Spine/Pelvis Other: Less complaints of pain on her right hip area today. Skin General: no rashes or lesions noted, dry skin and warm Neuro General: alert and awake Speech: speech normal Motor: muscle tone normal throughout Sensory Exam: no sensory deficits noted Extrem General: normal to inspection, capillary refill normal and no pedal edema Psych Appearance: grossly normal Speech and Movement: speech and movement normal Mood: congruent mood Affect: normal affect Attitude: cooperative Other: She appears awake and alert but is more confused today about sequencing of toileting tasks. There are no focal sensory or motor deficits. Objective Labs Result Diagrams: 11/04/17 05:23 11/06/17 08:30 Assessment & Plan Plan: Assessment/Plan Narrative: 1. Ground level fall with weakness she evidently has a history of falls and has been unable to get back up the this time. Seems to be improving. She has less pain in the right hip today. Physical therapy and Occupational therapy will continue working with her. Speech therapy cleared her yesterday. There is some question from the family about her confusion and they think she is listing to the left. Her CT was normal. MRI did not show any acute infarction. There is age-related atrophy and chronic deep white matter ischemic changes. Her neck angiogram showed a 70% stenosis of the right internal carotid at the bifurcation. There is minimal narrowing at the origin of the left ICA. There is appearance and doses at the origin of the right vertebral artery as well. Hip x-ray showed moderate degenerative changes in both hips. No acute fracture. 2. Diabetes type 2 blood sugar over 400 when she came in she may have skipped a few doses of insulin while she was on the floor. Plan to resume her insulin. Blood sugars a.c. have been in the mid to high 200s. She is being supplemented with NovoLog. Will follow a.m. labs. 3. AFib: She has controlled ventricular response in the 70s. On chronic anticoagulation. Her Cardizem and Xarelto have been restarted. Telemetry will be DC. 4. Hypertension: She has been somewhat hypertensive over the past 24 hr with blood pressures ranging from 150/75 to 202/95. I will increase her losartan to b.i.d.. Blood pressure slightly better today. 5. Dementia: Patient appears to have underlying dementia which may have surfaced during this acute hospitalization. Her Braxton score was 11/30. She continues to present with moderate short-term memory difficulty and reduced orientation. Word-finding is difficult for her as well. She also has reduced problem solving abilities. According to speech therapy, she appears to not have safe swallowing behaviors at this point and will need one-to-one supervision with all intake. She also needs assistance with medication administration, and activities of daily living. While she was walking up to 20 ft with physical therapy she needs increased assistance in standing and is at great risk for falls. 6. Code status she desires to be DNR 7. Disposition: Mrs. Rosario's family and care management are working together to come up with a safe discharge plan. Her asvrafck-zw-ven was supposed to come and take her home yesterday but felt it was going to be an unsafe environment for her as the patient lives alone. She will remain in the hospital until evaluated by Medicaid to see if she can qualify for correction facility/ senior care. This evaluation should happen within the next 5 days. Quality VTE Deep Vein Thrombosis/Pulmonary Embolism Present on Admission: No
[2017-11-07] MEDS: NEOMYCIN/POLYMYXIN/BACITRA UD OINT 1 EACH TOP ×2 (12:55→21:52)
--- NOTE | 2017-11-07 14:47 | PC.NURSE ---
Pt in recliner chair, has been oob to BRP, etc w/OT. Pt cont & incont of urine this shift. Eats well, no diff with swallow noted. Pt has reddened area to L hand at old IV site, antibx ointment applied to old cath site, then guaze, secured with opsite. off & on warm compresses to site as well. 1400 pt states site is tender, a 2 on scale. 1450 Pt is sleeping in the chair at this time.
--- NOTE | 2017-11-07 15:50 | CM.DPC ---
Patient still on observation status. Aowwyyvy-ti-ajt, Marley, stated that patient does qualify for Medicaid, and that she is requesting care management to locate a facility that accepts Medicaid beds, for she does not want patient to go back to [facility]. Called and spoke to Emma at [facility]. Stated that she is familiar with the case, but before this can happen, they need to send a social organization professor out from [facility] to perform a Functional Assessment. They can then determine where patient can go. Did state that she was financially covered. Case management will continue to monitor case, and status on functional assessment. Jacki Davis/farm equipment engine mechanic Discharge Planning/Care Management CM Discharge Assessment Start: 11/03/17 11:00 Freq: Status: Active Protocol: Document 11/03/17 11:01 ITV (Rec: 11/03/17 11:33 ITV [id number]) Discharge Planning Assessment History Provided By Patient Family Member Medical Record Has Patient been admitted in last 30 No days? Is this patient on Medicare? Yes Prior Living Arrangements Chcf Facility Household Members none Type of transporation used prior to Relies on Others admit Facility Name [facility] [address] Willing to Return to Facility? Yes Independent with ADL's PLF was independent with 4ww and supportive services at [facility] Is patient alert and oriented? No: PLF was a/p per pt and family. Not currently so Needs Assistance With [employer] Home Chores / Shopping Caregiver for Another No DME Already Rented / Owned FWW / Walker Comment has had home health services in past, not currently Referrals Initiated Medicaid Application Additional Comment d/c plan unclear at this time. PT recommends snf. Pt has not financial ability for same. Family and pt express that a full diagnosis has not been identified. Pt is far from baseline, both menally and physically. admission status is currently observation services/confirmed by UR DONG Cornelius Review Status In Process Next Review Type Continued Stay Review 11/03/17 11:12 CM Disch. Assessment Note by Genet Ferrari Addendum entered by Genet Ferrari LPN 11/03/17 11:33: of note: consult to clinical social work therapist: routine is noted. CM JACINDA Duque reviewed information and states consult appears to be based on DC Planning needed without need for specialized [employer]ER services. Original Note: DCP: assessment: case received, EMR reviewed and met with pt and her daughter Marley ( an SAFETY SPEC at [facility]). Introduced self and role. Pt is an 82 year old female who admitted yesterday afternoon to care of hospitalist team. PCP: Dr. Romero Payer: Medicare (confirmed with Mraley that pt does not have a Medicare supplement cannot afford it. Discussed case in Interdisc team rounds: PT Calos reports Laverne saw pt late yesterday and noted pt very far from her baseline. Recommending snf rehab stay. UR RN Ashli states pt at this time is here under observation services. She has delivered HAWK to pt with Marley present during process. DCP template completed with info currently available. Marley is expressing concerns re her mother's continued mental status changes, the elevated blood sugars and blood pressure, pt's left sided weakness and ongoing pain when pt tries to lift LLE when standing. Marley works 7P to 7A and thus she missed Dr. Alva when he rounded this morning. She is aware that PT is recommending snf. Says pt has no funds to pvt pay for same. They have applied for medicaid in past but denia was dropped after she was unable to locate some half-way paperwork. She has all that is needed now and requests new denia (given, along with KATIE Q&A info). She will drop this off tomorrow after work and will plan then to contact Melody Rajput/SHANAE Bee to alert her to probable snf need. (tel: [phone]) Pt was at [facility] in May of 2017 for 21 days and at that point she returned to [facility] with [facility]. Those are no longer current and Marley does say that pt, who manages her own medications, has done poorly with her diabetes management ever since. Marley says she just doesn't like to do it. Says she has discussed this with Dr. Romero. P: very much in process. Marley says she cannot care for pt and there are no other family members able to do this. Initialized on 11/03/17 11:12 - END OF NOTE
--- NOTE | 2017-11-07 16:21 | PT.IPTN ---
Physical Therapy Treatment Note M2 PT-IP Current Condition Start: 11/02/17 16:49 Freq: Status: Active Protocol: Document 11/04/17 09:30 TMS (Rec: 11/04/17 10:22 TMS [id number]) Physical Therapy Current Condition Current Condition Evaluation Date 11/02/17 Treatment Diagnosis GLF Onset Date 11/02/17 Precautions Other Precautions falls M3 PT-IP Subjective Start: 11/02/17 16:49 Freq: Status: Active Protocol: Document 11/07/17 16:20 GGD (Rec: 11/07/17 16:21 GGD [id number]) Subjective Physical Therapy Visit Type Type Patient Refusal Notes Pt states that her wrist hurts to much to walk and she tired from a busy day. Will see in AM. Frequency of Treatment Frequency Of Treatment Twice a Day Treatment Plan Other Recommendations and Next Treatment progress gait distance, sit to Focus stand Recommendations To Nursing Amount of Assist Needed 1 Person Assist Discharge Recommendations PT Discharge Recommendations SNF Rehab
[2017-11-07] MEDS: INSULIN GLARGINE 100 UNIT/ML 3ML PEN 40 UNIT SUBCUT (21:56)
[2017-11-08] VITALS (12 sets, daily range): BP systolic 128–180; BP diastolic 64–103; PULSE 54–82; RESP 14–18; TEMP 36.6–37; O2SAT 95–96
--- NOTE | 2017-11-08 02:33 | PC.NURSE ---
Addendum entered by Libra Juan R.N. 11/08/17 04:17: Patient up to BS and staff touched left hand/wrist and patient complains of pain with touch. Skin is quite erythemic. Medicated with Tylenol for 3/10 pain. Original Note: Patient is oriented except to date (knows month/year) and age (off by 1 year), but can be forgetful. Breath sounds diminished but CTA with RA sat of 96%. HR irregular; hx of afib. BP elevated initially at 152/103 so rechecked and now 175/77; is aware of elevated BP's and has been adjusting meds. Denies nausea. BT present and abdomen is soft. Incontinent of urine but was also able to void 150cc cloudy yellow urine when gotten up to BSC. Is able to turn self in bed. Needs assistance of 1-2 + walker to transfer to BS and to get back into bed. Denies pain. Abrasions on right elbow scabbed with no surrounding erythema. Bruising noted on right extremities. Left hand is still slightly swollen with erythema noted proximal to bandaid dressing. Fall risk score is high and bed alarm is activated.
[2017-11-08] MEDS: ACETAMINOPHEN 325 MG TABLET PO ×2 (04:14→12:46)
[2017-11-08 05:58] LABS: Add Manual Diff / Slide Review NO; Basophils Percent Auto 0.8 % (0-2); Hematocrit 40.7 % (36-46); Hemoglobin 13.6 g/dL (12.0-16.0); Lymphocytes Percent Auto 14.7 % (25-40); Mean Corpuscular HGB Conc 33.4 % (30-36); Mean Corpuscular Hemoglobin 30.6 PG (26-34); Mean Corpuscular Volume 91.5 fL (80-100); Monocytes Percent Auto 11.3 % (3-14); Neutrophils Absolute Auto 5900 /uL (3000-5900); Neutrophils Percent Auto 71.2 % (50-75); Platelet Count 162 X10^3/uL (150-400); Red Blood Cell Count 4.44 X10^6/uL (4.0-5.2); Red Cell Distribution Width 14.8 % (11.6-14.8); White Blood Cell Count 8.2 X10^3/uL (4.5-11.0)
[2017-11-08 06:06] LABS: BUN Creatinine Ratio 26.7 (6-22); Blood Urea Nitrogen 16 mg/dL (7-17); Calcium 9.1 mg/dL (8.4-10.2); Carbon Dioxide 31 mmol/L (22-32); Chloride 98 mmol/L (98-107); Estimated Glomerular Filt Rate > 60.0 mL/min (>60); Glucose 218 mg/dL (80-110); HEMOLYSIS < 15 (0-50); Potassium 4.2 mmol/L (3.4-5.1); Sodium 137 mmol/L (137-145)
[2017-11-08] MEDS: INSULIN ASPART 100 UNIT/ML INSULN PEN 10 UNIT SUBCUT ×3 (08:35→17:23)
[2017-11-08] MEDS: INSULIN ASPART 100 UNIT/ML INSULN PEN SUBCUT ×3 (08:36→17:24)
[2017-11-08] MEDS: dilTIAZem CD 120 MG CAP PO (08:37)
[2017-11-08] MEDS: NEOMYCIN/POLYMYXIN/BACITRA UD OINT 1 EACH TOP ×2 (08:38→21:30)
[2017-11-08] MEDS: LOSARTAN 50 MG TABLET PO ×2 (08:38→21:31)
[2017-11-08] MEDS: RIVAROXABAN 10 MG TABLET 20 MG PO (08:38)
[2017-11-08] MEDS: OXYBUTYNIN 5 MG TABLET PO ×2 (08:38→21:32)
[2017-11-08] MEDS: VENLAFAXINE ER 75 MG CAP 150 MG PO (08:39)
--- NOTE | 2017-11-08 09:25 | PC.NURSE ---
AM NOTE - alert, forgetful I think I'm doing ok, denies discomfort, some tenderness present when her l hand bandaid was changed, small tear and surrounding redness and edema present, abx ointment applied, large healing bruise r elbow, hr irreg 76, ra 96%, up to chair for breakfast x 1 person w/fww, OT in this am for mobilization, given prune juice for constipation.
--- NOTE | 2017-11-08 10:23 | PM.PN.1 ---
Subjective Date Patient Seen: 11/08/17 Time Patient Seen: 10:23 Interval history: Patient appears comfortable sitting in the bedside chair. Unremarkable 24. Exam Vital Signs (past 8 hours): Vital Signs - 8 hr 11/08/17 02:25 11/08/17 04:44 11/08/17 07:20 Temperature 98.5 F 97.8 F Pulse Rate 82 79 Respiratory Rate 18 16 Blood Pressure 175/77 H 180/81 H 149/91 H Pulse Oximetry 96 95 11/08/17 09:11 Temperature Pulse Rate Respiratory Rate Blood Pressure Pulse Oximetry 96 Pulse Oximetry 96 Oxygen Delivery Method Room Air Oxygen Flow Rate 0 Narrative Exam Narrative: General: cooperative and comfortable Nutritional Appearance: overweight Orientation: alert and awake. She is oriented to place and time and does remember me from yesterday. Other: Patient appears to have underlying dementia HENMT Head: normal to inspection, normocephalic and atraumatic Eyes General: appearance normal, both eyes and all related structures Pupils: PERRL and pupil size (2.0 mm) Neck Neck: normal visual inspection and supple Other: No JVD or lymphadenopathy Chest Chest: normal inspection of the chest Resp Effort & Inspection: normal respiratory effort and able to speak in complete sentences Auscultation: clear to auscultation bilaterally Other: On room air Cardio Rhythm: abnormal rhythm (Atrial fibrillation) Heart Sounds: S1 normal and S2 normal Other: 3/6 systolic murmur heard best over right sternal border. GI Inspection: normal to inspection and obesity Palpation: soft Auscultation: normal bowel sounds Other: Nontender to palpation Other: Unremarkable Back/Spine/Pelvis Other: Less complaints of pain on her right hip area today. Skin General: No rashes. She does have a large right arm ecchymotic area from pre-hospital fall. She also complains of pain at an old IV site on her left wrist which was treated with antibiotic ointment and a dressing. The remainder of her skin is dry skin and warm. Neuro General: alert and awake Speech: speech normal Motor: muscle tone normal throughout Sensory Exam: no sensory deficits noted Extrem General: normal to inspection, capillary refill normal and no pedal edema Psych Appearance: grossly normal Speech and Movement: speech and movement normal Mood: congruent mood Affect: normal affect Attitude: cooperative Other: She appears awake and alert and is less confused today about sequencing of toileting tasks. There are no focal sensory or motor deficits. Objective Labs Result Diagrams: 11/08/17 05:31 11/08/17 05:31 Labs: Laboratory Results - last 24 hr 11/08/17 11/08/17 05:31 05:31 WBC 8.2 RBC 4.44 Hgb 13.6 Hct 40.7 MCV 91.5 MCH 30.6 MCHC 33.4 RDW 14.8 Plt Count 162 Neut % (Auto) 71.2 Lymph % (Auto) 14.7 L [place] % (Auto) 11.3 Eos % (Auto) 2.0 Baso % (Auto) 0.8 Neut # (Auto) 5900 Sodium 137 Potassium 4.2 Chloride 98 Carbon Dioxide 31 BUN 16 Creatinine 0.60 Estimated GFR > 60.0 BUN/Creatinine Ratio 26.7 H Glucose 218 H Calcium 9.1 Assessment & Plan Plan: Assessment/Plan Narrative: 1. Ground level fall with weakness she evidently has a history of falls and has been unable to get back up the this time. Seems to be improving. She has less pain in the right hip today. Physical therapy and Occupational therapy will continue working with her. 2. Diabetes type 2 blood sugar over 400 when she came in she may have skipped a few doses of insulin while she was on the floor. Plan to resume her insulin. Blood sugars a.c. have been in the mid to high 200s. She is being supplemented with NovoLog. Her a.c. fingerstick glucoses have been ranging from 186-299. She is being supplemented with sliding scale insulin. Will follow a.m. labs. 3. AFib: She has controlled ventricular response in the 70s. On chronic anticoagulation. Her Cardizem and Xarelto have been restarted. 4. Hypertension: She has been somewhat hypertensive over the past 24 hr with blood pressures ranging from 149-184 systolic to 77-90 diastolic. Her losartan was increased to b.i.d.. 5. Dementia: Patient appears to have underlying dementia which may have surfaced during this acute hospitalization. Her Weston score was 1130. She continues to present with moderate short-term memory difficulty and reduced orientation. Word-finding is difficult for her as well. She also has reduced problem solving abilities. According to speech therapy, she appears to not have safe swallowing behaviors at this point and will need one-to-one supervision with all intake. She also needs assistance with medication administration, and activities of daily living. While she was walking up to 100 ft with physical therapy she continues to need at least a 1 person assist. She is at great risk for falls. 6. Code status she desires to be DNR 7. Disposition: Mrs. Rosario's family and care management are working together to come up with a safe discharge plan. She will remain in the hospital until evaluated by Medicaid to see if she can qualify for long-term facility/halfway/adult family living. This evaluation should happen within the next 4 days. Quality VTE Deep Vein Thrombosis/Pulmonary Embolism Present on Admission: No
--- NOTE | 2017-11-08 10:35 | P.PN_ITS ---
Subjective Date Patient Seen: 11/08/17 Time Patient Seen: 10:23 Interval history: Patient appears comfortable sitting in the bedside chair. Unremarkable 24. Exam Vital Signs (past 8 hours): Vital Signs - 8 hr 3 11/08/17 02:25 11/08/17 04:44 11/08/17 07:20 Temperature 98.5 F 97.8 F Pulse Rate 82 79 Respiratory Rate 18 16 Blood Pressure 175/77 H 180/81 H 149/91 H Pulse Oximetry 96 95 3 11/08/17 09:11 Temperature Pulse Rate Respiratory Rate Blood Pressure Pulse Oximetry 96 Pulse Oximetry 96 Oxygen Delivery Method Room Air Oxygen Flow Rate 0 Narrative Exam Narrative: General: cooperative and comfortable Nutritional Appearance: overweight Orientation: alert and awake. She is oriented to place and time and does remember me from yesterday. Other: Patient appears to have underlying dementia HENNJ Head: normal to inspection, normocephalic and atraumatic Eyes General: appearance normal, both eyes and all related structures Pupils: PERRL and pupil size (2.0 mm) Neck Neck: normal visual inspection and supple Other: No JVD or lymphadenopathy Chest Chest: normal inspection of the chest Resp Effort & Inspection: normal respiratory effort and able to speak in complete sentences Auscultation: clear to auscultation bilaterally Other: On room air Cardio Rhythm: abnormal rhythm (Atrial fibrillation) Heart Sounds: S1 normal and S2 normal Other: 3/6 systolic murmur heard best over right sternal border. GI Inspection: normal to inspection and obesity Palpation: soft Auscultation: normal bowel sounds Other: Nontender to palpation Other: Unremarkable Back/Spine/Pelvis Other: Less complaints of pain on her right hip area today. Skin General: No rashes. She does have a large right arm ecchymotic area from pre- hospital fall. She also complains of pain at an old IV site on her left wrist which was treated with antibiotic ointment and a dressing. The remainder of her skin is dry skin and warm. Neuro General: alert and awake Speech: speech normal Motor: muscle tone normal throughout Sensory Exam: no sensory deficits noted Extrem General: normal to inspection, capillary refill normal and no pedal edema Psych Appearance: grossly normal Speech and Movement: speech and movement normal Mood: congruent mood Affect: normal affect Attitude: cooperative Other: She appears awake and alert and is less confused today about sequencing of toileting tasks. There are no focal sensory or motor deficits. Objective Labs Result Diagrams: 11/08/17 05:31 11/08/17 05:31 Labs: Laboratory Results - last 24 hr 11/08/17 11/08/17 05:31 05:31 WBC 8.2 RBC 4.44 Hgb 13.6 Hct 40.7 MCV 91.5 MCH 30.6 MCHC 33.4 RDW 14.8 Plt Count 162 Neut % (Auto) 71.2 Lymph % (Auto) 14.7 L Roberts % (Auto) 11.3 Eos % (Auto) 2.0 Baso % (Auto) 0.8 Neut # (Auto) 5900 Sodium 137 Potassium 4.2 Chloride 98 Carbon Dioxide 31 BUN 16 Creatinine 0.60 Estimated GFR > 60.0 BUN/Creatinine Ratio 26.7 H Glucose 218 H Calcium 9.1 Assessment & Plan Plan: Assessment/Plan Narrative: 1. Ground level fall with weakness she evidently has a history of falls and has been unable to get back up the this time. Seems to be improving. She has less pain in the right hip today. Physical therapy and Occupational therapy will continue working with her. 2. Diabetes type 2 blood sugar over 400 when she came in she may have skipped a few doses of insulin while she was on the floor. Plan to resume her insulin. Blood sugars a.c. have been in the mid to high 200s. She is being supplemented with NovoLog. Her a.c. fingerstick glucoses have been ranging from 186-299. She is being supplemented with sliding scale insulin. Will follow a.m. labs. 3. AFib: She has controlled ventricular response in the 70s. On chronic anticoagulation. Her Cardizem and Xarelto have been restarted. 4. Hypertension: She has been somewhat hypertensive over the past 24 hr with blood pressures ranging from 149-184 systolic to 77-90 diastolic. Her losartan was increased to b.i.d.. 5. Dementia: Patient appears to have underlying dementia which may have surfaced during this acute hospitalization. Her Chant[place] score was 30. She continues to present with moderate short-term memory difficulty and reduced orientation. Word-finding is difficult for her as well. She also has reduced problem solving abilities. According to speech therapy, she appears to not have safe swallowing behaviors at this point and will need one-to-one supervision with all intake. She also needs assistance with medication administration, and activities of daily living. While she was walking up to 100 ft with physical therapy she continues to need at least a 1 person assist. She is at great risk for falls. 6. Code status she desires to be DNR 7. Disposition: Mrs. Rosario's family and care management are working together to come up with a safe discharge plan. She will remain in the hospital until evaluated by Medicaid to see if she can qualify for long-term facility/[facility]p/adult family living. This evaluation should happen within the next 4 days. Quality VTE Deep Vein Thrombosis/Pulmonary Embolism Present on Admission: No
--- NOTE | 2017-11-08 10:55 | PT.IPTN ---
Physical Therapy Treatment Note M2 PT-IP Current Condition Start: 11/02/17 16:49 Freq: Status: Active Protocol: Document 11/04/17 09:30 TMS (Rec: 11/04/17 10:22 TMS [email or web address]) Physical Therapy Current Condition Current Condition Evaluation Date 11/02/17 Treatment Diagnosis GLF Onset Date 11/02/17 Precautions Other Precautions falls M3 PT-IP Subjective Start: 11/02/17 16:49 Freq: Status: Active Protocol: Document 11/08/17 10:55 GGD (Rec: 11/08/17 11:49 GGD [id number]) Subjective Physical Therapy Visit Type Type Treatment Note Visit Start Time 10:40 Visit Stop Time 10:55 Total Visit Minutes 15 Number of DAILY SALES AUDIT CLERK Visits 3 Physical Therapy Visit Comments Patient Comments Pt states she needs to use the bathroom. Therapy Pain Assessment Pain When Pain Assessed At Rest Pain Present Pain Present Pain Reported M4 PT-IP Mobility and Gait Start: 11/02/17 16:49 Freq: Status: Active Protocol: Document 11/08/17 10:55 GGD (Rec: 11/08/17 11:49 GGD [id number]) PT-Bed Mobility Assessment Sit to Supine Sit to Supine Minimal Assistance 1 Person Assistance PT-Transfer Assessment Sit to and From Stand Sit to and from Stand Moderate Assistance 1 Person Assistance Use of Upper Extremities Equipment Transfer Assistive Device Gait Belt Front Wheeled Walker Transfers Transfer Destination Bed Toilet Transfer Ability Level of Assist Moderate Assistance 1 Person Assistance Use of Upper Extremities Comments Mobility Comments Pt need cues for Safe transfer and hand placement. Gait Assessment Gait Gait Assistance Required: Contact Guard Assist Distance (Feet) (feet) 30 Gait Deviations General Gait Pattern Decreased Stride Length Decreased Feet Clearance Factors Limiting Gait Function Factors Limiting Gait Function Decreased Activity Tolerance Decreased Strength Poor Balance Poor Safety Awareness Comments Gait Comments Pt need cues for safety and with FWW management. M5 PT-IP Objective Assessments Start: 11/02/17 16:49 Freq: Status: Active Protocol: Document 11/03/17 11:25 RCC (Rec: 11/03/17 12:51 RCC [id number]) Orientation Orientation/Cognition Level of Alertness Alert Orientation Name Birthday Date Place Gross Range of Motion Upper Extremity ROM Impairments B shoulder flexion to 150 deg. Strength Lower Extremity Strength Assessment Left Impaired Hip flexion 4/5 Knee extension 4/5, flexion 3+/5 Comments Strength Comments LLE weakness appears to be mainly due to pain Coordination Assessment Gross Coordination Gross Coordination WNL Sensation Assessment Sensation Gross Sensation WNL Comments Sensation Comments pt did c/o B toe numbness sitting on EOB, but WNL in supine M6 PT-IP Treatment Start: 11/02/17 16:49 Freq: Status: Active Protocol: Document 11/08/17 10:55 GGD (Rec: 11/08/17 11:49 GGD [id number]) Physical Therapy Treatment Exercises Exercises Ankle Pumps Education Education Provided Safety M7 PT-IP Assessment and Plan Start: 11/02/17 16:49 Freq: Status: Active Protocol: Document 11/08/17 10:55 GGD (Rec: 11/08/17 11:49 GGD [id number]) PT Summary Assessment and Plan Summary Assessment Summary Pt needs assistance with LE for bed mobility and with sit to stand. She had decrease tolerance to gait. Frequency of Treatment Frequency Of Treatment Twice a Day Treatment Plan Other Recommendations and Next Treatment progress gait distance, sit to Focus stand Recommendations To Nursing Amount of Assist Needed 1 Person Assist Discharge Recommendations PT Discharge Recommendations SNF Rehab
--- NOTE | 2017-11-08 14:26 | SLP.IPNOTE ---
PER ASSESSMENT NURSE arrived at patient's room for therapy, but she was working with CERAMICS ENGINEER to go to the bathroom. Unable to participate in therapy at that time. PER ASSESSMENT NURSE spoke with RN, Lacey, who stated that the patient did very well with her lunch (mashed potatoes and fruit). No difficulty observed. No therapy able to be performed at this time. PER ASSESSMENT NURSE will follow up again today, if able.
--- NOTE | 2017-11-08 16:36 | OT.IP.TRT ---
Occupational Therapy Treatment Note M2 OT-IP Current Condition Start: 11/04/17 12:43 Freq: Status: Active Protocol: Document 11/04/17 11:09 ADH (Rec: 11/04/17 13:11 ADH [id number]) Occupational Therapy Current Condition Current Condition Evaluation Date 11/04/17 Treatment Diagnosis confusion Diagnosis Onset Date 11/03/17 Post Operative Precautions Other Precautions falls M3 OT- IP Subjective and Pain Start: 11/04/17 12:43 Freq: Status: Active Protocol: Document 11/08/17 16:20 PJM (Rec: 11/08/17 16:36 PJM [id number]) OT- Subjective Occupational Therapy Visit Type Type Treatment Note Visit Start Time 09:16 Visit Stop Time 10:01 Total Visit Minutes 45 Occupational Therapy Visit Comments Patient Comments Okay, I am ready to get up. OT Pain Assessment Pain When Pain Assessed During Mobility Pain Present Pain Present Denied Pain M4 OT- IP ADL's Start: 11/04/17 12:43 Freq: Status: Active Protocol: Document 11/08/17 16:20 PJM (Rec: 11/08/17 16:36 PJM [id number]) OT ADL-Grooming General Evaluation Grooming Ability Standby Assistance Areas Needing Assistance Retrieving/Set-up of Grooming Items Combing/Brushing Hair Face Washing Comments OT Grooming Comments Pt stood 8 min at sink, leaning on sink, then fatigued and sat to rest to comb hair. Pt remembered to take FWW when walking today. OT ADL-Oral Care General Eval Oral Care Ability Standby Assistance Areas of Assistance Brushing Teeth Devices Oral Care Devices Toothbrush OT ADL-Dressing General Eval Lower Body Dressing Ability Minimal Assistance Areas Needing Assistance Socks Shoes Assistive Devices Dressing Assistive Devices Long Handled Shoe Horn Potable Water Treatment Operator Sock Aid Comments OT Dressing Comments Pt initiated use of ammonium nitrate neutralizer to doff socks today with SBA and mod cues. Provided sock aid and pt able to use it with mod assist for set up and mod cues. Pt needs min assist to don shoes with shoe horn due to heel folding down. M6 OT- IP Functional Cognition Start: 11/04/17 12:43 Freq: Status: Active Protocol: Document 11/08/17 16:20 PJM (Rec: 11/08/17 16:36 PJM [id number]) Cognitive Factors Limiting Selfcare Function Cognitive Ability Level of Alertness Alert Patient Orientation Name Place Attention Span Ability Capable of Focused Attention Capable of Sustained Attention Ability to Follow Commands Able to Follow One Step Commands Memory Description Short Term Impaired Problem Solving Ability Needs Assist to Identify Solutions Cognitive Comments Cognitive Assessment Comments Pt more alert today and able to recall use of ammonium nitrate neutralizer. Pt able to participate in teaching re: use of sock aid and long shoe horn and has potential to learn use with repetition/practice. M7 OT- IP Mobility and Balance Start: 11/04/17 12:43 Freq: Status: Active Protocol: Document 11/08/17 16:20 PJM (Rec: 11/08/17 16:36 PJM [email or web address]) OT- Bed Mobility Assessment Rolling Type of Rolling Log Rolling Level of Assistance Contact Guard Assistance Supine to Sit Supine to Sit Assist Contact Guard Assistance OT-Transfer Assessment Sit to and From Stand Sit to and from Stand Contact Guard Assistance Transfers Transfer Ability Contact Guard Assistance Technique Transfer Destination Chair Devices Transfer Assistive Devices Gait Belt Front Wheeled Walker Comments Mobility Comments Pt able to log roll to R and then push up to sitting using upper bed rail with CGA and max cues today. OT- Gait Assessment Gait Gait Assistance Required: Standby Assistance Distance (Feet) (feet) 15 Assistive Devices Assistive Device Gait Belt Front Wheeled Walker Comments Gait Ability Comments No LOB during gait or transfers today. OT- Balance Assessment Sitting Balance and Reactions Static Sitting Balance Ability Good Dynamic Sitting Balance Ability Good Standing Balance and Reactions Static Standing Balance Ability Good Dynamic Standing Balance Ability Fair M8 OT- IP Objective Assessments Start: 11/04/17 12:43 Freq: Status: Active Protocol: Document 11/04/17 11:09 ADH (Rec: 11/04/17 13:11 ADH [id number]) OT Gross Range of Motion Upper Extremity Range of Motion Assessment Within Functional Limits ROM Impairments Pt with difficulty following ROM demonstration, mild perseveration observed. OT Strength Upper Extremity Strength Assessment Bilaterally Impaired Shoulder 4-/5 Elbow 3+/5 Forearm 4-/5 Hand Title One Kindergarten Teacher Strength Hand Dominance Mixed Comments Strength Comments Pt has large bruise on R elbow , consistent with previous fall. Pt reported pain in R elbow with MMT testing. OT- Coordination Assessment Upper Extremity Finger Tapping Test Within Functional Limits M9 OT- IP Assessment and Plan Start: 11/04/17 12:43 Freq: Status: Active Protocol: Document 11/08/17 16:20 PJM (Rec: 11/08/17 16:36 PJM [id number]) OT Summary Assessment and Plan Potential Rehabilitation Potential Good Summary OT Impairments Balance Functional Cognition Functional Mobility Dressing Toileting Bathing Toilet Transfers Shower Transfers Progress Towards Goals Slow Progress due to Activity Tolerance Slow Progress due to Cognition Assessment Summary Pt presents with variations in functional cognition and balance from day to day, but able to recall use of some adaptive equipt for lower body dressing today and has potential to learn equipt use with repetition/practice. Improved bed mobility skills each day this week with repetition of same technique. Pt still needs 24 hr assist for safety due to variable cognition and overall decreased safety awareness. Goals Days to Meet Goals 5 Frequency of Treatment Frequency Of Treatment Once a Day Treatment Plan OT Treatment Plan ADL Training Functional Mobility Patient/Family Education Discharge Planning Discharge Recommendations OT Discharge Recommendations Home with 10/12 Assist Home Equipment Needs provided long shoe horn, bath sponge and sock aid
--- NOTE | 2017-11-08 17:24 | CM.DPC ---
DCP Ongoing Assmt and Plan: Multiple phone calls and time spent on this case today. Patient continues in OBS status. Unable to meet with patient, but reviewed case and most recent notes. Received phone call from Melodytamanna Schulz at [phone], [facility], stating that they do NOT do functional assessments for SNF or LTC facilities, as previous DCP had called and requested their intervention for this assmt. They will do this in hospital for AF Home or Assisted Living memory care facility only. She could not quote a reimbursement rate, as this only can be done after their assmt is completed. She stated any assmt would be at least 5 days out. Melody verified that patient's Medicaid application had been received. She stated this would make the patient eligible for any facility. If a patient d/c to a SNF (if needs that level of care), they could have the functional assessment done there once patient arrives. DCP called Delphine and spoke multiple times about this patient. 1: They do not have a female bed at [facility] currently, and there is a waiting list so patient would be in line behind others awaiting female [facility] bed. 2: If patient was to d/c to [facility], they would need 3 years of rent up front prior to acceptance. 3: If patient needed SNF level of care, [facility] is $9,000/month and payment would be up front there also. MDP left VM messg for Melody at [facility] at the end of the day asking her to have the agency go ahead and perform a Functional Assmt, as [facility] or other facility will be ongoing research for DC office. Asked her to call DCP back. Verified per previous DCP note that patient is paying $1,800/month at [facility] but unable to return there due to memory issues, unable to dress self, cannot manage own meds. Plan: Continue to research possible d/c options for this patient. Needs Medicaid bed in facility that has care for mild dementia. Patient does not wander. Needs assist with dressing in morning, meals, med mgmt. Patient is pleasant and calm. Follow up on Functional Assmt through [facility]. Ashli Noriega RN
[2017-11-08] MEDS: INSULIN GLARGINE 100 UNIT/ML 3ML PEN 40 UNIT SUBCUT (21:32)
[2017-11-09] VITALS (9 sets, daily range): BP systolic 144–203; BP diastolic 79–103; PULSE 70–83; RESP 16; TEMP 36.7–37.1; O2SAT 93–96
[2017-11-09] MEDS: ACETAMINOPHEN 325 MG TABLET PO ×2 (00:13→12:33)
[2017-11-09] MEDS: MAGNESIUM HYDROXIDE 30 ML UDC PO (05:31)
--- NOTE | 2017-11-09 05:39 | PC.NURSE ---
NOC Shift: Pt is pleasant with some forgetfulness. Denies pain until arms or leg are touched. PRN APAP given x1 this shift. 2PA with transfer to BSC, pt has been grossly incontinent while sleeping. Left hand and wrist remain slightly swollen with very faint erythema. Drsg in place to left hand/wrist.
[2017-11-09] MEDS: INSULIN ASPART 100 UNIT/ML INSULN PEN SUBCUT ×3 (08:25→17:26)
[2017-11-09] MEDS: INSULIN ASPART 100 UNIT/ML INSULN PEN 10 UNIT SUBCUT ×3 (08:25→17:26)
[2017-11-09] MEDS: OXYBUTYNIN 5 MG TABLET PO ×2 (08:28→20:59)
[2017-11-09] MEDS: LOSARTAN 50 MG TABLET PO ×2 (08:28→21:00)
[2017-11-09] MEDS: dilTIAZem CD 120 MG CAP PO (08:28)
[2017-11-09] MEDS: RIVAROXABAN 10 MG TABLET 20 MG PO (08:29)
[2017-11-09] MEDS: VENLAFAXINE ER 75 MG CAP 150 MG PO (08:29)
[2017-11-09] MEDS: NEOMYCIN/POLYMYXIN/BACITRA UD OINT 1 EACH TOP ×2 (08:29→20:59)
--- NOTE | 2017-11-09 10:20 | PT.IPTN ---
Physical Therapy Treatment Note M2 PT-IP Current Condition Start: 11/02/17 16:49 Freq: Status: Active Protocol: Document 11/04/17 09:30 TMS (Rec: 11/04/17 10:22 TMS [email or web address]) Physical Therapy Current Condition Current Condition Evaluation Date 11/02/17 Treatment Diagnosis GLF Onset Date 11/02/17 Precautions Other Precautions falls M3 PT-IP Subjective Start: 11/02/17 16:49 Freq: Status: Active Protocol: Document 11/09/17 11:17 GGD (Rec: 11/09/17 11:23 GGD [id number]) Subjective Physical Therapy Visit Type Type Treatment Note Visit Start Time 09:40 Visit Stop Time 10:20 Total Visit Minutes 30 Number of BOILER MECHANIC Visits 4 Physical Therapy Visit Comments Patient Comments Pt states she is tired. Therapy Pain Assessment Pain When Pain Assessed At Rest Pain Present Pain Present Pain Reported M4 PT-IP Mobility and Gait Start: 11/02/17 16:49 Freq: Status: Active Protocol: Document 11/09/17 11:17 GGD (Rec: 11/09/17 11:23 GGD [id number]) PT-Transfer Assessment Sit to and From Stand Sit to and from Stand Minimal Assistance 1 Person Assistance Use of Upper Extremities Equipment Transfer Assistive Device Gait Belt Front Wheeled Walker Transfers Transfer Destination Chair Transfer Ability Level of Assist Minimal Assistance 1 Person Assistance Comments Mobility Comments Pt needed assistance with sit to stand and controlled sit. Gait Assessment Gait Gait Assistance Required: Contact Guard Assist Distance (Feet) (feet) 200 Assistive Devices Assistive Device Gait Belt Front Wheeled Walker Gait Deviations General Gait Pattern Decreased Stride Length Decreased Feet Clearance Factors Limiting Gait Function Factors Limiting Gait Function Decreased Activity Tolerance Decreased Strength Comments Gait Comments Pt needed min cues with FWW. M6 PT-IP Treatment Start: 11/02/17 16:49 Freq: Status: Active Protocol: Document 11/09/17 11:17 GGD (Rec: 11/09/17 11:23 GGD [id number]) Physical Therapy Treatment Exercises Exercises Ankle Pumps Education Education Provided Safety M7 PT-IP Assessment and Plan Start: 11/02/17 16:49 Freq: Status: Active Protocol: Document 11/09/17 11:17 GGD (Rec: 11/09/17 11:23 GGD [id number]) PT Summary Assessment and Plan Summary Assessment Summary Pt had increase in tolerance for gait. She still needs assistance with sit to stand and limit by left wrist pain. Frequency of Treatment Frequency Of Treatment Once a Day Treatment Plan Other Recommendations and Next Treatment progress gait distance, sit to Focus stand, balance Recommendations To Nursing Amount of Assist Needed 1 Person Assist Discharge Recommendations PT Discharge Recommendations SNF Rehab
--- NOTE | 2017-11-09 10:35 | PC.NURSE ---
Addendum entered by Lacey Brooks R.N. 11/09/17 12:51: pain - awakened for lunch, sat up and assisted with set up meal, able feed self w/o coughing, discussed pain mgt and given 325mg po tylenol for generalized discomfort. Original Note: AM NOTE - awakens easily, eating disorder psychologist in and assist x 1 bsc w/some incont, states she feels pretty good, oriented self, unable to name [place] or [facility], l wrist, hand redness at old iv site, some edema and tender to touch, abx ointment applied, later up with phys therapy and using fww ambul out into hallway, gait steady, ret to chair w/alarm set.
--- NOTE | 2017-11-09 15:13 | CM.DANOTE ---
Addendum entered by Genet Ferrari LPN 11/10/17 10:53: Spoke this morning with [place] as planned. She states that they do not have a medicaid bed available at this time and do not anticipate having one in near future. She does say that staff have been checking [facility] and, as of Wednesday 11/08 the Medicaid approval was not in place. Left vm for Marley/MEHDI now re above and encouraged her to followup tomorrow with DCP team to discuss further options in the county. If unable to reach Marley would encourage team to leave her a message on her cell, per her request. Left message with [facility] Melody Rajput: Social Radial Drill Operator II [facility]: Aging and Long-Term Support Administration: [phone] confirming that pt is seeking a medicaid bed in a intermediate long-term setting. Original Note: DCP assessment: Case received again and EMR for last few days is reviewed. When this d/c buyer planner was last here on Monday 11/06 a conference was held in pt's room with pt, MEHDI Marley, this dc buyer planner, CM manager payment Marianna Markham and civil defense director Nikki Garcia. Decision at that point was to keep pt overnight. Later DC planning notes show that pt now is staying until [facility] assessment can be completed. Checked in with pt and RN Lacey in the morning. Pt continues to work with therapy team and needs ongoing PT.OT and APPLIED PSYCHOLOGY PROFESSOR as well as IDDM management. Her cognitive status has been assessed with determination of some impairment. Pt remains under observation admission status. MEHDI daughter in law Marley arrived to see pt this afternoon and have spend the last 30 minutes in conversation with her and with pt re POC going forward. Marley notes that she has been off work for the last couple of days and has spoken with [facility]/Brian Gutierrez office: Iris and then Emma Saldivar. She says she has been told verbally that pt's application has been approved and that pt would have $60.00 a month left for expenses/personal after she paid her Medicaid participation. Marley stated that she told [facility] that she did not see that her mother could be managed in any facility accept a snf level. Would anticipate that pt initially would received PT/OT/APPLIED PSYCHOLOGY PROFESSOR under Medicare PT B services until at highest level of medical and functional abilities and then would either continue on in the LTC environment of transition to an SHELTER setting that would provide appropriate support (such as [facility] (currently, per notes, full with wait list). Marley hopes for an admission to [facility]. Agreed to talk with [place] tomorrow. Discussed other options in [facility] area. Will need to see what the [facility] used building materials yard worker decides and take direction from that person. [facility] offices are closed over weekend. Recommend that calls be made Saturday Morning in followup and that MEHDI Roach be kept closely informed re all information. Marley has Emma Saldivar's number at home. She will provide this by tomorrow.
[2017-11-09] MEDS: INSULIN GLARGINE 100 UNIT/ML 3ML PEN 40 UNIT SUBCUT (21:02)
[2017-11-10] VITALS (9 sets, daily range): BP systolic 139–151; BP diastolic 68–84; PULSE 60–89; RESP 14–18; TEMP 36.6–36.9; O2SAT 93–97
[2017-11-10] MEDS: ACETAMINOPHEN 325 MG TABLET PO ×2 (05:08→12:27)
[2017-11-10] MEDS: INSULIN ASPART 100 UNIT/ML INSULN PEN 10 UNIT SUBCUT ×3 (08:43→16:55)
[2017-11-10] MEDS: INSULIN ASPART 100 UNIT/ML INSULN PEN SUBCUT ×3 (08:43→16:55)
[2017-11-10] MEDS: RIVAROXABAN 10 MG TABLET 20 MG PO (08:45)
[2017-11-10] MEDS: VENLAFAXINE ER 75 MG CAP 150 MG PO (08:45)
[2017-11-10] MEDS: NEOMYCIN/POLYMYXIN/BACITRA UD OINT 1 EACH TOP ×2 (08:45→21:07)
[2017-11-10] MEDS: dilTIAZem CD 120 MG CAP PO (08:45)
[2017-11-10] MEDS: LOSARTAN 50 MG TABLET PO ×2 (08:45→21:08)
[2017-11-10] MEDS: OXYBUTYNIN 5 MG TABLET PO ×2 (08:45→21:08)
--- NOTE | 2017-11-10 09:55 | PC.NURSE ---
AM NOTE - awakens easily for breakfast, repositioned upright, able wash face, hr irreg 84, ra 93%, bs coarse, clear, oriented to self, able to state [place] eventually but unable to name hospital, no complaint discomfort now, large healing bruises r elbow, rle, redness and edema l hand, abx ointment applied, has receded at hand since first observed Saturday, continues bright red at wrist, tender to touch, phys therapy in after breakfast and assisted oob, ambul slowly w/fww down [place] [facility] and ret to bed, declined chair at this time, bed alarm set.
--- NOTE | 2017-11-10 11:34 | PT.IPTN ---
Physical Therapy Treatment Note M2 PT-IP Current Condition Start: 11/02/17 16:49 Freq: Status: Active Protocol: Document 11/04/17 09:30 TMS (Rec: 11/04/17 10:22 TMS [id number]) Physical Therapy Current Condition Current Condition Evaluation Date 11/02/17 Treatment Diagnosis GLF Onset Date 11/02/17 Precautions Other Precautions falls M3 PT-IP Subjective Start: 11/02/17 16:49 Freq: Status: Active Protocol: Document 11/10/17 09:12 CLB (Rec: 11/10/17 11:34 CLB [id number]) Subjective Physical Therapy Visit Type Type Treatment Note Visit Start Time 09:12 Visit Stop Time 09:45 Total Visit Minutes 33 Number of PIT WORKER POWER SHOVEL Visits 5 Physical Therapy Visit Comments Patient Comments Pt agreeable to get up and walk. Therapy Pain Assessment Pain When Pain Assessed At Rest Pain Present Pain Present Pain Reported M4 PT-IP Mobility and Gait Start: 11/02/17 16:49 Freq: Status: Active Protocol: Document 11/10/17 09:12 CLB (Rec: 11/10/17 11:34 CLB [id number]) PT-Bed Mobility Assessment Supine to Sit Supine to Sit Contact Guard Assistance Head of Bed Elevated Bedrails Sit to Supine Sit to Supine Contact Guard Assistance Scooting Scooting to Edge of Bed Standby Assistance Scooting Up and Down in Bed Contact Guard Assistance PT-Transfer Assessment Sit to and From Stand Sit to and from Stand Minimal Assistance 1 Person Assistance Use of Upper Extremities Equipment Transfer Assistive Device Gait Belt Front Wheeled Walker Transfers Transfer Destination Bed Toilet Transfer Ability Level of Assist Minimal Assistance 1 Person Assistance Comments Mobility Comments Pt needs cues for sequencing and hand placement for safety. Gait Assessment Gait Gait Assistance Required: Contact Guard Assist Distance (Feet) (feet) 200 Assistive Devices Assistive Device Gait Belt Front Wheeled Walker Gait Deviations General Gait Pattern Decreased Stride Length Decreased Feet Clearance Factors Limiting Gait Function Factors Limiting Gait Function Decreased Activity Tolerance Decreased Strength Comments Gait Comments Pt needs cues for safety with FWW during ambulation in room. M5 PT-IP Objective Assessments Start: 11/02/17 16:49 Freq: Status: Active Protocol: Document 11/03/17 11:25 RCC (Rec: 11/03/17 12:51 RCC [id number]) Orientation Orientation/Cognition Level of Alertness Alert Orientation Name Birthday Date Place Gross Range of Motion Upper Extremity ROM Impairments B shoulder flexion to 150 deg. Strength Lower Extremity Strength Assessment Left Impaired Hip flexion 4/5 Knee extension 4/5, flexion 3+/5 Comments Strength Comments LLE weakness appears to be mainly due to pain Coordination Assessment Gross Coordination Gross Coordination WNL Sensation Assessment Sensation Gross Sensation WNL Comments Sensation Comments pt did c/o B toe numbness sitting on EOB, but WNL in supine M6 PT-IP Treatment Start: 11/02/17 16:49 Freq: Status: Active Protocol: Document 11/10/17 09:12 CLB (Rec: 11/10/17 11:34 CLB [id number]) Physical Therapy Treatment Exercises Exercises Ankle Pumps Quad Sets Education Education Provided Safety M7 PT-IP Assessment and Plan Start: 11/02/17 16:49 Freq: Status: Active Protocol: Document 11/10/17 09:12 CLB (Rec: 11/10/17 11:34 CLB [id number]) PT Summary Assessment and Plan Summary Assessment Summary Pt is improving with bed mobility and gait dipika. Pt continues to need cues during transfers and gait for safety. Frequency of Treatment Frequency Of Treatment Once a Day Treatment Plan Other Recommendations and Next Treatment progress gait distance, sit to Focus stand, balance Recommendations To Nursing Amount of Assist Needed 1 Person Assist Discharge Recommendations PT Discharge Recommendations SNF Rehab
[2017-11-10] MEDS: INSULIN GLARGINE 100 UNIT/ML 3ML PEN 40 UNIT SUBCUT (21:10)
--- NOTE | 2017-11-10 21:58 | PC.NURSE ---
CASSAN[facility]A CBG DOWN 53 PATIENT ASKING FOR AND GIVEN SNACK/JUICE/SANDWICH NO S/S OF LOW GLUCOSE
[2017-11-11] VITALS (11 sets, daily range): BP systolic 116–192; BP diastolic 60–82; PULSE 74–88; RESP 16–18; TEMP 36.1–36.8; O2SAT 92–97
[2017-11-11] MEDS: ACETAMINOPHEN 325 MG TABLET PO ×2 (02:16→20:07)
--- NOTE | 2017-11-11 05:25 | PC.NURSE ---
Addendum entered by Margarita Woods R.N. 11/11/17 06:56: Pt slept well through the night. Pt given Tylenol per JUL. Pt up with one assist to BS. Pt was asleep and suddenly I heard calling and screaming form the room, upon entry, pt was waving arms and stating no no no, go away, ugh get out of here etc and other words that I could not make out, all while asleep. Pt did calm down , but this happened a few times. As pt was sleeping pt was left alone, frequent monitoring ensued and pt eventually stopped talking in her sleep and fell back asleep. pt uses call light. bed alarm on. side rails upx2. belongings and call light within reach. will continue to monitor pt for safety. Original Note: Assumed care of pt form outgoing shift at 2300 6-24. Pt asleep, arouses to voice. Pt denies pain at this time. compliant with nursing assessments. Pt pleasant. with bouts of confusion r/t dementia. requested blankets. Pt up to [facility] and is incontinent. barrier cream applied to bottom as diaper rash like rash on bottom and around thighs- where diaper touches skin. different type of diaper applied in case pt has reaction/.response to original diaper. updated on plan of care for night. Pt asking for a drink and couldn't think of what it was, then kept thinking and later told this principal technical writer it was ensure. Pt drank this and then went back to bed. did clear throat right after drinking. pt upright, sitting on side of bed, pt would lean a bit to the left. pt told to sit straight up and pt would correct. Pt is very weak and takes a while to get up. Pt has much difficulty with scooting to side of bed. . Pt bed in lowest, locked position. Pt bed alarm on, side rails upx3. belongings and call light within reach. will continue to monitor pt for safety.
[2017-11-11] MEDS: dilTIAZem CD 120 MG CAP PO (09:39)
[2017-11-11] MEDS: NEOMYCIN/POLYMYXIN/BACITRA UD OINT 1 EACH TOP ×2 (09:39→20:07)
[2017-11-11] MEDS: LOSARTAN 50 MG TABLET PO ×2 (09:39→20:07)
[2017-11-11] MEDS: OXYBUTYNIN 5 MG TABLET PO ×2 (09:40→20:13)
[2017-11-11] MEDS: RIVAROXABAN 10 MG TABLET 20 MG PO (09:40)
[2017-11-11] MEDS: VENLAFAXINE ER 75 MG CAP 150 MG PO (09:40)
[2017-11-11] MEDS: INSULIN ASPART 100 UNIT/ML INSULN PEN 10 UNIT SUBCUT ×3 (09:40→16:54)
[2017-11-11] MEDS: INSULIN ASPART 100 UNIT/ML INSULN PEN SUBCUT ×3 (09:41→16:55)
--- NOTE | 2017-11-11 10:28 | P.PN_ITS ---
Subjective Date Patient Seen: 11/11/17 Time Patient Seen: 10:23 Interval history: Patient sitting in bedside chair in no acute distress. Exam Vital Signs (past 8 hours): - 11/11/17 05:05 11/11/17 08:00 Temperature 97 F L 97.6 F Pulse Rate 85 77 Respiratory Rate 16 18 Blood Pressure 192/80 H 162/82 H Pulse Oximetry 95 92 Oxygen Delivery Method Room Air Oxygen Flow Rate 0 Narrative Exam Narrative: Exam Narrative: General: cooperative and comfortable Nutritional Appearance: overweight Orientation: alert and awake. She is oriented to place and time and does remember me from yesterday. Other: Patient appears to have underlying dementia HENPR Head: normal to inspection, normocephalic and atraumatic Eyes General: appearance normal, both eyes and all related structures Pupils: PERRL and pupil size (2.0 mm) Neck Neck: normal visual inspection and supple Other: No JVD or lymphadenopathy Chest Chest: normal inspection of the chest Resp Effort & Inspection: normal respiratory effort and able to speak in complete sentences Auscultation: clear to auscultation bilaterally Other: On room air Cardio Rhythm: abnormal rhythm (Atrial fibrillation) Heart Sounds: S1 normal and S2 normal Other: 3/6 systolic murmur heard best over right sternal border. GI Inspection: normal to inspection and obesity Palpation: soft Auscultation: normal bowel sounds Other: Nontender to palpation Other: Unremarkable Back/Spine/Pelvis Other: No complaints of hip pain Skin General: No rashes. She does have a large right arm ecchymotic area from pre- hospital fall. She also complains of pain at an old IV site on her left wrist which was treated with antibiotic ointment and a dressing. The remainder of her skin is dry skin and warm. Neuro General: alert and awake Speech: speech normal Motor: muscle tone normal throughout Sensory Exam: no sensory deficits noted Extrem General: normal to inspection, capillary refill normal and no pedal edema Psych Appearance: grossly normal Speech and Movement: speech and movement normal Mood: congruent mood Affect: normal affect Attitude: cooperative Other: She appears awake and alert and is less confused today about sequencing of toileting tasks. There are no focal sensory or motor deficits. Objective Labs Result Diagrams: 11/08/17 05:31 11/08/17 05:31 Assessment & Plan Plan: Assessment/Plan Narrative: 1. Ground level fall with weakness she evidently has a history of falls and has been unable to get back up the this time. Seems to be improving. She is not complaining of any hip pain today. She is walking approximately 200 ft with physical therapy. Physical therapy and Occupational therapy will continue working with her. 2. Diabetes type 2 blood sugar over 400 when she came in she may have skipped a few doses of insulin while she was on the floor. Plan to resume her insulin. Blood sugars a.c. have been in the mid to high 200s. She is being supplemented with NovoLog. Her a.c. fingerstick glucoses have been ranging from as low as 51 to 327.. She is being supplemented with sliding scale insulin. 3. AFib: She has controlled ventricular response in the 70s. On chronic anticoagulation. Her Cardizem and Xarelto have been restarted. 4. Hypertension: She has been mildly hypertensive over the past 24 hr with blood pressures ranging from 149-192 systolic to 68-80 diastolic. She remains on losartan b.i.d. 5. Dementia: Patient appears to have underlying dementia which may have surfaced during this acute hospitalization. Her Hawkins score was 11/30. She continues to present with moderate short-term memory difficulty, although she remembers my name after not seeing me for 2 days. According to speech therapy, she appears to not have safe swallowing behaviors at this point and will need one-to-one supervision with all intake. She also needs assistance with medication administration, and activities of daily living. While she was walking up to 100 ft with physical therapy she continues to need at least a 1 person assist. She is at great risk for falls. 6. Code status she desires to be DNR 7. Disposition: Mrs. Rosario's family and care management are working together to come up with a safe discharge plan. She will remain in the hospital until evaluated by Medicaid to see if she can qualify for long-term facility/skilled nursing/adult family living. This evaluation should happen Saturday afternoon at 1300. Quality VTE Deep Vein Thrombosis/Pulmonary Embolism Present on Admission: No
--- NOTE | 2017-11-11 10:41 | PT.IPTN ---
Physical Therapy Treatment Note M2 PT-IP Current Condition Start: 11/02/17 16:49 Freq: Status: Active Protocol: Document 11/11/17 10:27 TMS (Rec: 11/11/17 10:41 TMS [id number]) Physical Therapy Current Condition Current Condition Evaluation Date 11/02/17 Treatment Diagnosis GLF Onset Date 11/02/17 Precautions Other Precautions falls M3 PT-IP Subjective Start: 11/02/17 16:49 Freq: Status: Active Protocol: Document 11/11/17 10:27 TMS (Rec: 11/11/17 10:41 TMS [id number]) Subjective Physical Therapy Visit Type Type Treatment Note Visit Start Time 09:50 Visit Stop Time 10:20 Total Visit Minutes 30 Number of HOSPITALITY COORDINATOR Visits 6 Physical Therapy Visit Comments Patient Comments Pt. sitting in chair, requested B.R. Therapy Pain Assessment Pain When Pain Assessed At Rest Pain Present Pain Present Pain Reported Location Right knee Pain Behaviors Wincing Pain Management Techniques Distraction Re-positioning M4 PT-IP Mobility and Gait Start: 11/02/17 16:49 Freq: Status: Active Protocol: Document 11/11/17 10:27 TMS (Rec: 11/11/17 10:41 TMS [id number]) PT-Transfer Assessment Sit to and From Stand Sit to and from Stand Minimal Assistance Moderate Assistance Use of Upper Extremities Equipment Transfer Assistive Device Gait Belt Front Wheeled Walker Transfers Transfer Destination Toilet Comments Mobility Comments Pt. needed mod-A for sit>stand from chair, min-A for sit> stand from toilet, cues for hand placement. Gait Assessment Gait Gait Assistance Required: Contact Guard Assist Distance (Feet) (feet) 200 Assistive Devices Assistive Device Gait Belt Front Wheeled Walker Gait Deviations General Gait Pattern Decreased Stride Length Decreased Feet Clearance Factors Limiting Gait Function Factors Limiting Gait Function Decreased Activity Tolerance Decreased Strength Comments Gait Comments Pt. needs cues for posture, step length with gait. No LOB with gait. Pt. used B.R. while up, washed hands at sink. M5 PT-IP Objective Assessments Start: 11/02/17 16:49 Freq: Status: Active Protocol: Document 11/03/17 11:25 RCC (Rec: 11/03/17 12:51 RCC [id number]) Orientation Orientation/Cognition Level of Alertness Alert Orientation Name Birthday Date Place Gross Range of Motion Upper Extremity ROM Impairments B shoulder flexion to 150 deg. Strength Lower Extremity Strength Assessment Left Impaired Hip flexion 4/5 Knee extension 4/5, flexion 3+/5 Comments Strength Comments LLE weakness appears to be mainly due to pain Coordination Assessment Gross Coordination Gross Coordination WNL Sensation Assessment Sensation Gross Sensation WNL Comments Sensation Comments pt did c/o B toe numbness sitting on EOB, but WNL in supine M6 PT-IP Treatment Start: 11/02/17 16:49 Freq: Status: Active Protocol: Document 11/11/17 10:27 TMS (Rec: 11/11/17 10:41 TMS [id number]) Physical Therapy Treatment Exercises Exercises Ankle Pumps Short Arc Quads M7 PT-IP Assessment and Plan Start: 11/02/17 16:49 Freq: Status: Active Protocol: Document 11/11/17 10:27 TMS (Rec: 11/11/17 10:41 TMS [id number]) PT Summary Assessment and Plan Summary Assessment Summary Pt. needs less assist for sit> stand, increased endurance with gait. Frequency of Treatment Frequency Of Treatment Once a Day Treatment Plan Other Recommendations and Next Treatment progress gait distance, sit to Focus stand, balance Recommendations To Nursing Amount of Assist Needed 1 Person Assist Discharge Recommendations PT Discharge Recommendations SNF Rehab
--- NOTE | 2017-11-11 11:29 | OT.IP.TRT ---
Occupational Therapy Treatment Note M2 OT-IP Current Condition Start: 11/04/17 12:43 Freq: Status: Active Protocol: Document 11/04/17 11:09 [facility] (Rec: 11/04/17 13:11 [facility] [id number]) Occupational Therapy Current Condition Current Condition Evaluation Date 11/04/17 Treatment Diagnosis confusion Diagnosis Onset Date 11/03/17 Post Operative Precautions Other Precautions falls M3 OT- IP Subjective and Pain Start: 11/04/17 12:43 Freq: Status: Active Protocol: Document 11/11/17 11:15 [facility] (Rec: 11/11/17 11:29 [facility] [id number]) OT- Subjective Occupational Therapy Visit Type Type Treatment Note Visit Start Time 10:25 Visit Stop Time 11:10 Total Visit Minutes 45 Occupational Therapy Visit Comments Patient Comments Pt cooperative and agreeable to take a shower today. OT Pain Assessment Pain When Pain Assessed During Mobility Pain Present Pain Present Denied Pain M4 OT- IP ADL's Start: 11/04/17 12:43 Freq: Status: Active Protocol: Document 11/11/17 11:15 [facility] (Rec: 11/11/17 11:29 [facility] [id number]) OT ADL-Grooming General Evaluation Grooming Ability Standby Assistance Areas Needing Assistance Retrieving/Set-up of Grooming Items Combing/Brushing Hair OT ADL-Dressing General Eval Lower Body Dressing Ability Minimal Assistance Areas Needing Assistance Socks Shoes Assistive Devices Dressing Assistive Devices Long Handled Shoe Horn Laborer Rags Comments OT Dressing Comments Pt able to reach down with hands to initailly caryn left sock and needing assist with right side to pull up all the way over her feet. OT ADL-Toileting General Evaluation Toileting Ability Minimal Assistance Areas Needing Assistance Manage Clothing Comments OT Toileting Comments Pt needing assist to remember to pull caryn biref before sitting down to the toilet. OT ADL-Bathing Bathing Type Bathing Type Shower General Evaluation Bathing Ability Moderate Assistance Devices Bathing Equipment Hand Held Shower Sprayer Shower Chair with Arms Grab Bars Comments OT Bathing Comments Pt heavy use of grab bars while standing to shower . VC to sit down to wash her legs and feet. Pt needing MAX vc for sequncing of task and was perseverating on washing her face and needing cues to more on and wash her body,pericare area and lower extremities. In addition, pt was neglecting to wash her right arm and needing cue to wash her right arm. Pt needing MOD vc to dry off all the parts of her body. Pt having trouble reaching pericare area and needs assist for completeness. M6 OT- IP Functional Cognition Start: 11/04/17 12:43 Freq: Status: Active Protocol: Document 11/11/17 11:15 [facility] (Rec: 11/11/17 11:29 [facility] [id number]) Cognitive Factors Limiting Selfcare Function Cognitive Ability Level of Alertness Alert Patient Orientation Name Place Attention Span Ability Capable of Focused Attention Unable to Sustain Attention Ability to Follow Commands Able to Follow One Step Commands Memory Description Short Term Impaired Problem Solving Ability Needs Assist to Identify Solutions Executive Function Ability Unable to Filter Distractions Cognitive Comments Cognitive Assessment Comments Pt having difficulty to sequncing tasks of ADl today. M7 OT- IP Mobility and Balance Start: 11/04/17 12:43 Freq: Status: Active Protocol: Document 11/11/17 11:15 [facility] (Rec: 11/11/17 11:29 [facility] [id number]) OT-Transfer Assessment Sit to and From Stand Sit to and from Stand Moderate Assistance Transfers Transfer Ability Minimal Assistance Technique Transfer Destination Chair Toilet Transfer Technique Stand Step Pivot Devices Transfer Assistive Devices Gait Belt Front Wheeled Walker Comments Mobility Comments Pt needing from GAGANDEEP to MOD to stand and heavy use of grab bar in the shower . GAGANDEEP to step over threshold for balance. OT- Gait Assessment Gait Gait Assistance Required: Contact Guard Assist Distance (Feet) (feet) 25 Assistive Devices Assistive Device Gait Belt Front Wheeled Walker Comments Gait Ability Comments Pt is unsteady on her feet. OT- Balance Assessment Sitting Balance and Reactions Static Sitting Balance Ability Good Dynamic Sitting Balance Ability Fair Standing Balance and Reactions Static Standing Balance Ability Fair Dynamic Standing Balance Ability Poor Comments Other Balance Tests/Deviations/Treatment Needing use of grab bar with : one hand while trying to pull up brief over her hips. M8 OT- IP Objective Assessments Start: 11/04/17 12:43 Freq: Status: Active Protocol: Document 11/04/17 11:09 [facility] (Rec: 11/04/17 13:11 [facility] [id number]) OT Gross Range of Motion Upper Extremity Range of Motion Assessment Within Functional Limits ROM Impairments Pt with difficulty following ROM demonstration, mild perseveration observed. OT Strength Upper Extremity Strength Assessment Bilaterally Impaired Shoulder 4-/5 Elbow 3+/5 Forearm 4-/5 Hand Sales Representative Uniforms Strength Hand Dominance Mixed Comments Strength Comments Pt has large bruise on R elbow , consistent with previous fall. Pt reported pain in R elbow with MMT testing. OT- Coordination Assessment Upper Extremity Finger Tapping Test Within Functional Limits M9 OT- IP Assessment and Plan Start: 11/04/17 12:43 Freq: Status: Active Protocol: Document 11/11/17 11:15 [facility] (Rec: 11/11/17 11:29 [facility] [id number]) OT Summary Assessment and Plan Potential Rehabilitation Potential Good Summary OT Impairments Balance Functional Cognition Functional Mobility Dressing Toileting Bathing Toilet Transfers Shower Transfers Progress Towards Goals Slow Progress due to Activity Tolerance Slow Progress due to Cognition Assessment Summary Pt will continue to benefit from 10/12 supervision and assist as needed due to decreased functional cognition and decreased safety awareness . Today, pt needing more assist from sit to stand and functional mobility. Goals Grooming Goal Standby Assistance Dressing Goal Standby Assistance Toileting Goal Standby Assistance Bathing Goal Standby Assistance Toilet Transfer Goal Standby Assistance Shower Transfer Goal Contact Guard Assistance Days to Meet Goals 5 Frequency of Treatment Frequency Of Treatment Once a Day Treatment Plan OT Treatment Plan ADL Training Functional Mobility Patient/Family Education Discharge Planning Discharge Recommendations OT Discharge Recommendations Home with 24/7 Assist SNF Rehab Other Discharge Recommendations Home Health OT
--- NOTE | 2017-11-11 11:33 | CM.DPC ---
[facility] Ongoing Assmt: Case reviewed, EMR reviewed, and at Rounding meeting this AM, POLICE ACADEMY INSTRUCTOR indicated patient will likely be discharged from Speech therapy today as she is likely at her baseline with swallow and mentation. Swallow status is still 1:1 feed for safety as patient is impulsive with eating and takes large mouthfuls which are not safe to swallow; needs continual cues and reminders. Baseline mentation is forgetful, likely dementia, not safe to be at home alone, needs assist with ADLs. Had a Care Mgmt. team meeting about placement issues for this patient. Decided to proceed with the recommendation that it is possible the patient could d/c to [facility] with home health services of PT/OT/POLICE ACADEMY INSTRUCTOR, so to re-contact Melody Li at [facility] Home and Community Support, requesting that she initiate the assessment for this pt. Contacted: eMlody at [facility], as above. She agreed to set up the referral to a Rabble Furnace Tender and then the Assessment. Contacted by: Leonora Ding, [facility] , who will be the Rabble Furnace Tender for this patient, and she will come to perform the assessment at 1pm tomorrow, 11/12/17. Also let her know the DIL, Marley Rosario RN, would likely want to attend the assmt and she stated this would be fine. Contacted: LUIS Rosario, and let her know of assessment date and time. She will be here before 1pm tomorrow to be at this assessment. (Did not discuss with Marley that this would be for LTC or AFH rather than SNF placement at this time. Will wait for results of assmt to have that conversation, as Marley feels patient is only appropriate for SNF placement, but that assmt could not be done in the hospital, per Melody, would have to occur at a SNF.) FAXED: [facility] office attempted to FAX patient's EMR records including therapy notes and medications to the number given by Leonora Ding . Kept getting no answer message on FAX. Called Leonora to verify this # and she stated it is correct. She further stated that if FAX not successful today, please leave the hard copy records on the [facility] desk and she will pick them up tomorrow prior to the assessment at 1pm. Plan: [facility] Assessment to be performed by Leonora Ding on 11/12 at 1pm, LUIS Roach to be in attendance to observe this. Goal: AFH or long-term care facility that will accept Medicaid, and HH can visit facility (paid under [facility] Part [facility]) to provide OT, PT and POLICE ACADEMY INSTRUCTOR as needed. Alternatively, SNF placement that would accept Medicaid, if MD deems patient needs SNF level of care (order would have to be written), then transition to LTC with Medicaid coverage. (Per previous call to Delphine on Sat, 11/08, no beds currently avail at [facility], and she has a wait list for female beds, so likely no availability there for quite some time.) Ashli Noriega RN
[2017-11-11] MEDS: INSULIN GLARGINE 100 UNIT/ML 3ML PEN 40 UNIT SUBCUT (20:49)
[2017-11-12] VITALS (10 sets, daily range): BP systolic 130–179; BP diastolic 52–96; PULSE 67–139; RESP 16–20; TEMP 36.7–37.2; O2SAT 84–98
[2017-11-12] MEDS: ACETAMINOPHEN 325 MG TABLET PO ×2 (03:44→15:50)
[2017-11-12] MEDS: OXYBUTYNIN 5 MG TABLET PO ×2 (09:31→20:19)
[2017-11-12] MEDS: RIVAROXABAN 10 MG TABLET 20 MG PO (09:31)
[2017-11-12] MEDS: NEOMYCIN/POLYMYXIN/BACITRA UD OINT 1 EACH TOP ×2 (09:31→20:18)
[2017-11-12] MEDS: INSULIN ASPART 100 UNIT/ML INSULN PEN 10 UNIT SUBCUT ×3 (09:31→17:00)
[2017-11-12] MEDS: dilTIAZem CD 120 MG CAP PO (09:31)
[2017-11-12] MEDS: VENLAFAXINE ER 75 MG CAP 150 MG PO (09:31)
[2017-11-12] MEDS: LOSARTAN 50 MG TABLET PO ×2 (09:31→20:18)
[2017-11-12] MEDS: INSULIN ASPART 100 UNIT/ML INSULN PEN SUBCUT ×3 (09:32→17:01)
--- NOTE | 2017-11-12 09:35 | PM.PN.1 ---
Subjective Date Patient Seen: 11/12/17 Time Patient Seen: 09:35 Interval history: Uneventful 24 hr period. Awaiting placement evaluation by Medicaid. Exam Vital Signs (past 8 hours): - 11/12/17 04:25 11/12/17 07:45 11/12/17 08:08 Temperature 98.1 F 98.3 F Pulse Rate 74 67 Respiratory Rate 18 16 Blood Pressure 162/84 H 153/88 H Pulse Oximetry 98 95 95 Oxygen Delivery Method Room Air Oxygen Flow Rate 0 Narrative Exam Narrative: General: cooperative and comfortable Nutritional Appearance: overweight Orientation: alert and awake. She is oriented to place and time and does remember me by name. Other: Patient appears to have underlying dementia HENWA Head: normal to inspection, normocephalic and atraumatic Eyes General: appearance normal, both eyes and all related structures Pupils: PERRL and pupil size (2.0 mm) Neck Neck: normal visual inspection and supple Other: No JVD or lymphadenopathy Chest Chest: normal inspection of the chest Resp Effort & Inspection: normal respiratory effort and able to speak in complete sentences Auscultation: clear to auscultation bilaterally Other: On room air Cardio Rhythm: abnormal rhythm (Atrial fibrillation) Heart Sounds: S1 normal and S2 normal Other: 3/6 systolic murmur heard best over right sternal border. GI Inspection: normal to inspection and obesity Palpation: soft Auscultation: normal bowel sounds Other: Nontender to palpation Other: Cloudy, foul-smelling Back/Spine/Pelvis Other: No complaints of hip pain Skin General: No rashes. She does have a large right arm ecchymotic area from pre-hospital fall. She also complains of pain at an old IV site on her left wrist which was treated with antibiotic ointment and a dressing. The remainder of her skin is dry skin and warm. Neuro General: alert and awake Speech: speech normal Motor: muscle tone normal throughout Sensory Exam: no sensory deficits noted Extrem General: normal to inspection, capillary refill normal and no pedal edema Psych Appearance: grossly normal Speech and Movement: speech and movement normal Mood: congruent mood Affect: normal affect Attitude: cooperative Other: She appears awake and alert and is less confused today about sequencing of toileting tasks. There are no focal sensory or motor deficits. Objective Labs Result Diagrams: 11/08/17 05:31 11/08/17 05:31 Assessment & Plan Plan: Assessment/Plan Narrative: 1. Ground level fall with weakness she evidently has a history of falls and has been unable to get back up the this time. Seems to be slowly improving over the past week. She is without hip pain today. She is walking approximately 200 ft with physical therapy and is able to ambulate with a walker to the bathroom with assistance. Physical therapy and Occupational therapy will continue working with her. 2. She continues to have a.c. fingerstick glucoses in the high 100 to mid 300 range. I will increase her evening long-acting insulin to 50 units. She is being supplemented with NovoLog. 3. AFib: She has controlled ventricular response in the 70s. On chronic anticoagulation. Her Cardizem and Xarelto have been continued. 4. Hypertension: She has been mildly hypertensive over the past 24 hr with blood pressures ranging from 149-192 systolic to 68-80 diastolic. She remains on losartan b.i.d. 5. Dementia: Patient appears to have underlying dementia which may have surfaced during this acute hospitalization. Her Throckmorton score last week was 30. Her short-term memory appears to be improving. According to speech therapy, she appears to not have safe swallowing behaviors at this point and will need one-to-one supervision with all intake. She also needs assistance with medication administration, and activities of daily living. She continues to be a great risk for falls if not assisted with ambulation. She is not a risk for climbing out of bed or out of the chairs with assistance. 6. Code status she desires to be DNR 7. Disposition: Mrs. Rosario's family and care management are working together to come up with a safe discharge plan. She will remain in the hospital until evaluated by Medicaid to see if she can qualify for long-term facility/retirement/adult family living. This evaluation should happen today. Quality VTE Deep Vein Thrombosis/Pulmonary Embolism Present on Admission: No
--- NOTE | 2017-11-12 09:43 | P.PN_ITS ---
Subjective Date Patient Seen: 11/12/17 Time Patient Seen: 09:35 Interval history: Uneventful 24 hr period. Awaiting placement evaluation by Medicaid. Exam Vital Signs (past 8 hours): - 11/12/17 04:25 11/12/17 07:45 11/12/17 08:08 Temperature 98.1 F 98.3 F Pulse Rate 74 67 Respiratory Rate 18 16 Blood Pressure 162/84 H 153/88 H Pulse Oximetry 98 95 95 Oxygen Delivery Method Room Air Oxygen Flow Rate 0 Narrative Exam Narrative: General: cooperative and comfortable Nutritional Appearance: overweight Orientation: alert and awake. She is oriented to place and time and does remember me by name. Other: Patient appears to have underlying dementia HENKS Head: normal to inspection, normocephalic and atraumatic Eyes General: appearance normal, both eyes and all related structures Pupils: PERRL and pupil size (2.0 mm) Neck Neck: normal visual inspection and supple Other: No JVD or lymphadenopathy Chest Chest: normal inspection of the chest Resp Effort & Inspection: normal respiratory effort and able to speak in complete sentences Auscultation: clear to auscultation bilaterally Other: On room air Cardio Rhythm: abnormal rhythm (Atrial fibrillation) Heart Sounds: S1 normal and S2 normal Other: 3/6 systolic murmur heard best over right sternal border. GI Inspection: normal to inspection and obesity Palpation: soft Auscultation: normal bowel sounds Other: Nontender to palpation Other: Cloudy, foul-smelling Back/Spine/Pelvis Other: No complaints of hip pain Skin General: No rashes. She does have a large right arm ecchymotic area from pre- hospital fall. She also complains of pain at an old IV site on her left wrist which was treated with antibiotic ointment and a dressing. The remainder of her skin is dry skin and warm. Neuro General: alert and awake Speech: speech normal Motor: muscle tone normal throughout Sensory Exam: no sensory deficits noted Extrem General: normal to inspection, capillary refill normal and no pedal edema Psych Appearance: grossly normal Speech and Movement: speech and movement normal Mood: congruent mood Affect: normal affect Attitude: cooperative Other: She appears awake and alert and is less confused today about sequencing of toileting tasks. There are no focal sensory or motor deficits. Objective Labs Result Diagrams: 11/08/17 05:31 11/08/17 05:31 Assessment & Plan Plan: Assessment/Plan Narrative: 1. Ground level fall with weakness she evidently has a history of falls and has been unable to get back up the this time. Seems to be slowly improving over the past week. She is without hip pain today. She is walking approximately 200 ft with physical therapy and is able to ambulate with a walker to the bathroom with assistance. Physical therapy and Occupational therapy will continue working with her. 2. She continues to have a.c. fingerstick glucoses in the high 100 to mid 300 range. I will increase her evening long-acting insulin to 50 units. She is being supplemented with NovoLog. 3. AFib: She has controlled ventricular response in the 70s. On chronic anticoagulation. Her Cardizem and Xarelto have been continued. 4. Hypertension: She has been mildly hypertensive over the past 24 hr with blood pressures ranging from 149-192 systolic to 68-80 diastolic. She remains on losartan b.i.d. 5. Dementia: Patient appears to have underlying dementia which may have surfaced during this acute hospitalization. Her Clancy score last week was 30. Her short-term memory appears to be improving. According to speech therapy , she appears to not have safe swallowing behaviors at this point and will need one-to-one supervision with all intake. She also needs assistance with medication administration, and activities of daily living. She continues to be a great risk for falls if not assisted with ambulation. She is not a risk for climbing out of bed or out of the chairs with assistance. 6. Code status she desires to be DNR 7. Disposition: Mrs. Rosario's family and care management are working together to come up with a safe discharge plan. She will remain in the hospital until evaluated by Medicaid to see if she can qualify for long-term facility/correction/adult family living. This evaluation should happen today. Quality VTE Deep Vein Thrombosis/Pulmonary Embolism Present on Admission: No
[2017-11-12 11:39] LABS: Appearance Urine UA CLOUDY; Bilirubin Urine UA NEGATIVE (NEGATIVE); Color Urine UA YELLOW; Glucose Urine UA 3+ g/dL (Normal); Ketones Urine UA NEGATIVE (NEGATIVE); Leukocyte Esterase Urine UA 2+ (NEGATIVE); Nitrite Urine UA Negative (Negative); Occult Blood Urine UA 1+ (Negative); Protein Urine UA NEGATIVE (Negative); Specific Gravity Urine UA <=1.005 (1.000-1.035); Urobilinogen Urine UA 0.2 E.U./dL (0.2)
[2017-11-12 11:47] LABS: Bacteria Urine Many (>30); RBC Urine 5-10/HPF (0-5/HPF); WBC Urine >100/HPF (0-5/HPF)
[2017-11-12 11:48] LABS: Culture Indicated Urine Specimen Cultured; Squamous Epithelial Cell Urine 0-1 /HPF
--- NOTE | 2017-11-12 14:46 | CM.DPC ---
DCP Cont. Leonora from [facility] here to do a bedside assessment on patient. Assessment completed, and she will finalize assessment by about 1:00pm tomorrow. Will update internet media planner as far as daily rate for placement. Leonora stated that [id number] was looking at [facility] facility in [facility]. Plan: master planner to follow closely tomorrow with Leonora regarding daily rate and placement options. Jacki Davis RN/case aide
--- NOTE | 2017-11-12 16:01 | PT.IPTN ---
Physical Therapy Treatment Note M2 PT-IP Current Condition Start: 11/02/17 16:49 Freq: Status: Active Protocol: Document 11/11/17 10:27 [facility] (Rec: 11/11/17 10:41 TMS [id number]) Physical Therapy Current Condition Current Condition Evaluation Date 11/02/17 Treatment Diagnosis GLF Onset Date 11/02/17 Precautions Other Precautions falls M3 PT-IP Subjective Start: 11/02/17 16:49 Freq: Status: Active Protocol: Document 11/12/17 15:58 RS (Rec: 11/12/17 16:00 RS [id number]) Subjective Physical Therapy Visit Type Type Treatment Note Visit Start Time 15:44 Visit Stop Time 15:58 Total Visit Minutes 14 Physical Therapy Visit Comments Patient Comments Pt reports feeling tired, doesn't want to walk, agreeable to exercises. Therapy Pain Assessment Pain When Pain Assessed At Rest Pain Present Pain Present Denied Pain M4 PT-IP Mobility and Gait Start: 11/02/17 16:49 Freq: Status: Active Protocol: Document 11/11/17 10:27 [facility]MS (Rec: 11/11/17 10:41 TMS [id number]) PT-Transfer Assessment Sit to and From Stand Sit to and from Stand Minimal Assistance Moderate Assistance Use of Upper Extremities Equipment Transfer Assistive Device Gait Belt Front Wheeled Walker Transfers Transfer Destination Toilet Comments Mobility Comments Pt. needed mod-A for sit>stand from chair, min-A for sit> stand from toilet, cues for hand placement. Gait Assessment Gait Gait Assistance Required: Contact Guard Assist Distance (Feet) (feet) 200 Assistive Devices Assistive Device Gait Belt Front Wheeled Walker Gait Deviations General Gait Pattern Decreased Stride Length Decreased Feet Clearance Factors Limiting Gait Function Factors Limiting Gait Function Decreased Activity Tolerance Decreased Strength Comments Gait Comments Pt. needs cues for posture, step length with gait. No LOB with gait. Pt. used B.R. while up, washed hands at sink. M5 PT-IP Objective Assessments Start: 11/02/17 16:49 Freq: Status: Active Protocol: Document 11/03/17 11:25 [facility] (Rec: 11/03/17 12:51 [facility] [id number]) Orientation Orientation/Cognition Level of Alertness Alert Orientation Name Birthday Date Place Gross Range of Motion Upper Extremity ROM Impairments B shoulder flexion to 150 deg. Strength Lower Extremity Strength Assessment Left Impaired Hip flexion 4/5 Knee extension 4/5, flexion 3+/5 Comments Strength Comments LLE weakness appears to be mainly due to pain Coordination Assessment Gross Coordination Gross Coordination WNL Sensation Assessment Sensation Gross Sensation WNL Comments Sensation Comments pt did c/o B toe numbness sitting on EOB, but WNL in supine M6 PT-IP Treatment Start: 11/02/17 16:49 Freq: Status: Active Protocol: Document 11/12/17 15:58 RS (Rec: 11/12/17 16:00 [id number]) Physical Therapy Treatment Exercises Exercises Ankle Pumps Gluteal Sets Quad Sets Supine Hip Abduction Seated Knee Flexion/Extension Education Education Provided Safety M7 PT-IP Assessment and Plan Start: 11/02/17 16:49 Freq: Status: Active Protocol: Document 11/12/17 15:58 RS (Rec: 11/12/17 16:00 [id number]) PT Summary Assessment and Plan Summary Assessment Summary Pt continues to slowly improve with overall mobility, but pt is still below reported functional baseline. Continue to recommend SNF rehab or at least a setting 10/12 assist and HHPT. Frequency of Treatment Frequency Of Treatment Once a Day Treatment Plan Other Recommendations and Next Treatment progress gait distance, sit to Focus stand, balance Recommendations To Nursing Amount of Assist Needed 1 Person Assist Discharge Recommendations PT Discharge Recommendations SNF Rehab
[2017-11-12] MEDS: dilTIAZem SR 60 MG 120 MG PO (20:47)
--- NOTE | 2017-11-12 20:48 | PC.NURSE ---
SHIFT NOTE noted pt to have elevated BP and HR during evening rounds. Pt observed resting comfortably in bed, denies any chest pain, dizziness, or SOB. Dr. Mai notified of pt's VS,scheduled diltiazem already administered during the day, and pt only with scheduled cozaar due. MD entered orders for additional diltiazem and scheduled dose change starting tomorrow, per MD, Rn to call back if HR remains >120bpm 2 hours after admin time. pt also noted to have blood glucose of 62, slightly shakiness noted in hands but otherwise asymtomatic. pt given sandwich and juice. awaiting recheck levels
[2017-11-13] VITALS (8 sets, daily range): BP systolic 119–159; BP diastolic 61–81; PULSE 54–71; RESP 16–18; TEMP 36.6–36.9; O2SAT 93–97
--- NOTE | 2017-11-13 03:29 | PC.NURSE ---
HR 69 w/occ odd beats, BP 142/63, denies any discomfort; pt did mention earlier episode of incr'd Hr/Bp on previous shift stating it frightened me. Hs cbg only 62, after snack 121, 50 units of lantus was held at that time; cbg recheck at 0220 = 316.
[2017-11-13] MEDS: dilTIAZem CD 240 MG CAP PO (08:19)
[2017-11-13] MEDS: ACETAMINOPHEN 325 MG TABLET PO (08:19)
[2017-11-13] MEDS: OXYBUTYNIN 5 MG TABLET PO ×2 (08:19→20:30)
[2017-11-13] MEDS: LOSARTAN 50 MG TABLET PO ×2 (08:19→20:30)
[2017-11-13] MEDS: RIVAROXABAN 10 MG TABLET 20 MG PO (08:20)
[2017-11-13] MEDS: NEOMYCIN/POLYMYXIN/BACITRA UD OINT 1 EACH TOP ×2 (08:20→20:32)
[2017-11-13] MEDS: VENLAFAXINE ER 75 MG CAP 150 MG PO (08:20)
[2017-11-13] MEDS: INSULIN ASPART 100 UNIT/ML INSULN PEN 10 UNIT SUBCUT ×3 (08:23→17:12)
[2017-11-13] MEDS: INSULIN ASPART 100 UNIT/ML INSULN PEN SUBCUT ×4 (08:24→20:31)
[2017-11-13] MEDS: MAGNESIUM HYDROXIDE 30 ML UDC PO (08:31)
[2017-11-13] MEDS: BISACODYL 10 MG SUPP PR (09:54)
--- NOTE | 2017-11-13 11:14 | PC.NURSE ---
AM NOTE - awakens easily for breakfast, repositioned upright and set up for PO, able to feed self w/o coughing, states some discomfort when placing dentures and asked for tylenol, oriented to self only, when asked if she could name location, just laughs, after thinking, still could not name hospital or [place], given meds with applesauce, insulin coverage completed, given mom after breakfast and later admin dulcolax suppos, assisted to bsc with BM, redness at groin from incont, trina care performed and barrier cream applied, healing bruising rue, rle scab at r elbow, some redness l wrist at old iv site receeding, abx ointment applied, allevyn dsg placed.
--- NOTE | 2017-11-13 11:36 | PM.PN.1 ---
Subjective Date Patient Seen: 11/13/17 Time Patient Seen: 11:36 Interval history: At approximately 8:00 p.m. last night the patient complained of chest palpitations and her heart beating fast and feeling anxious. Her pulse at that time was 130 and her blood pressure was also elevated. The on-call provider was notified and was the patient was given 120 mg diltiazem. Her daily dose of diltiazem was increased to 240 q.a.m. the patient is otherwise without complaints. Exam Vital Signs (past 8 hours): - 11/13/17 04:51 11/13/17 07:00 11/13/17 08:19 Temperature 97.9 F 98.0 F Pulse Rate 64 71 Respiratory Rate 18 16 Blood Pressure 153/81 H 159/61 H Pulse Oximetry 95 97 95 Oxygen Delivery Method Room Air Oxygen Flow Rate 0 Narrative Exam Narrative: cooperative and comfortable Nutritional Appearance: overweight Orientation: alert and awake. She is oriented to place and time and does remember me by name. Other: Patient appears to have underlying dementia HENNY Head: normal to inspection, normocephalic and atraumatic Eyes General: appearance normal, both eyes and all related structures Pupils: PERRL and pupil size (2.0 mm) Neck Neck: normal visual inspection and supple Other: No JVD or lymphadenopathy Chest Chest: normal inspection of the chest Resp Effort & Inspection: normal respiratory effort and able to speak in complete sentences Auscultation: clear to auscultation bilaterally Other: On room air Cardio Rhythm: abnormal rhythm (Atrial fibrillation) Heart Sounds: S1 normal and S2 normal Other: 3/6 systolic murmur heard best over right sternal border. GI Inspection: normal to inspection and obesity Palpation: soft Auscultation: normal bowel sounds Other: Nontender to palpation Other: Cloudy, foul-smelling Back/Spine/Pelvis Other: No complaints of hip pain Skin General: No rashes. She does have a large right arm ecchymotic area from pre-hospital fall. She has less complaints of pain at an old IV site on her left wrist which was treated with antibiotic ointment and a dressing. The site appears less inflamed today. The remainder of her skin is dry skin and warm. Neuro General: alert and awake Speech: speech normal Motor: muscle tone normal throughout Sensory Exam: no sensory deficits noted Extrem General: normal to inspection, capillary refill normal and no pedal edema Psych Appearance: grossly normal Speech and Movement: speech and movement normal Mood: congruent mood Affect: normal affect Attitude: cooperative Other: She appears awake and alert and is less confused today about sequencing of toileting tasks. There are no focal sensory or motor deficits. Objective Labs Result Diagrams: 11/08/17 05:31 11/08/17 05:31 Labs: Laboratory Results - last 24 hr 11/12/17 11:00 Urine Color Yellow Urine Appearance Cloudy Urine pH 6.0 Ur Specific [place] <=1.005 Urine Protein Negative Urine Glucose (UA) 3+ Urine Ketones Negative Urine Occult Blood 1+ H Urine Nitrate Negative Urine Bilirubin Negative Urine Urobilinogen 0.2 Ur Leukocyte Esterase 2+ H Urine RBC 5-10/hpf H Urine WBC >100/hpf H Ur Squamous Epith Cells 0-1 /hpf Urine Bacteria Many (>30) H Ur Culture Indicated? Specimen cultured Micro UA Comment Not Reportable Assessment & Plan Plan: Assessment/Plan Narrative: 1. Ground level fall with weakness she evidently has a history of falls and has been unable to get back up the this time. Seems to be slowly improving over the past week. She is without hip pain today. She is walking approximately 200 ft with physical therapy and is able to ambulate with a walker to the bathroom with assistance. Physical therapy and Occupational therapy will continue working with her. 2. She continues to have a.c. fingerstick glucoses in the high 100 to mid 300 range. Her evening long-acting insulin was increased to 50 units. She is being supplemented with NovoLog. 3. AFib: The on-call provider was called in the evening to be notified of her heart rate being 130 with an elevated blood pressure. She was given 120 of diltiazem and her daily dose was increased to 240 q.a.m.. She has not had any other complaints of palpitations or fast heart rates since last evening. She remains an irregular rhythm with a heart rate in the 70s to low 80s. On chronic anticoagulation. Her Cardizem and Xarelto have been continued. 4. Hypertension: She has been mildly hypertensive over the past 24 hr with blood pressures ranging from 149-180 systolic to 68-80 diastolic. She remains on losartan b.i.d. 5. Dementia: Patient appears to have underlying dementia which may have surfaced during this acute hospitalization. Her Thayne score last week was 04/18. Her short-term memory appears to be improving. According to speech therapy, she appears to not have safe swallowing behaviors at this point and will need one-to-one supervision with all intake. She also needs assistance with medication administration, and activities of daily living. She continues to be a great risk for falls if not assisted with ambulation. She is not a risk for climbing out of bed or out of the chairs with assistance. 6. Bacteriuria, asymptomatic UTI: Staff was complaining of foul-smelling and cloudy urine. Urinalysis was sent revealing greater than 100 WBCs, greater than 30 bacteria, 2+ esterase. Patient is asymptomatic, afebrile. 7. Code status she desires to be DNR 8. Disposition: Mrs. Rosario's family and care management are working together to come up with a safe discharge plan. She will remain in the hospital until evaluated by Medicaid to see if she can qualify for long-term facility/senior living/adult family living. [facility] performed a bedside assessment yesterday afternoon. The [id number]'s looking for placement at [facility] in [place]. Will await bed placement. Quality Quality VTE Deep Vein Thrombosis/Pulmonary Embolism Present on Admission: No
--- NOTE | 2017-11-13 11:45 | PT.IPTN ---
Physical Therapy Treatment Note M2 PT-IP Current Condition Start: 11/02/17 16:49 Freq: Status: Active Protocol: Document 11/11/17 10:27 TMS (Rec: 11/11/17 10:41 TMS [id number]) Physical Therapy Current Condition Current Condition Evaluation Date 11/02/17 Treatment Diagnosis GLF Onset Date 11/02/17 Precautions Other Precautions falls M3 PT-IP Subjective Start: 11/02/17 16:49 Freq: Status: Active Protocol: Document 11/13/17 11:30 GGD (Rec: 11/13/17 11:45 GGD [id number]) Subjective Physical Therapy Visit Type Type Treatment Note Visit Start Time 11:10 Visit Stop Time 11:30 Total Visit Minutes 20 Number of TYPE COPY EXAMINER Visits 1 Physical Therapy Visit Comments Patient Comments PT states she is willing to get up. Therapy Pain Assessment Pain When Pain Assessed At Rest Pain Present Pain Present Denied Pain M4 PT-IP Mobility and Gait Start: 11/02/17 16:49 Freq: Status: Active Protocol: Document 11/13/17 11:30 GGD (Rec: 11/13/17 11:45 GGD [id number]) PT-Bed Mobility Assessment Supine to Sit Supine to Sit Minimal Assistance 1 Person Assistance Bedrails Scooting Scooting to Edge of Bed Standby Assistance PT-Transfer Assessment Sit to and From Stand Sit to and from Stand Contact Guard Assistance Use of Upper Extremities Equipment Transfer Assistive Device Gait Belt Front Wheeled Walker Transfers Transfer Destination Chair Gait Assessment Gait Gait Assistance Required: Contact Guard Assist Distance (Feet) (feet) 200 Assistive Devices Assistive Device Gait Belt Front Wheeled Walker Gait Deviations General Gait Pattern Decreased Stride Length Decreased Feet Clearance Factors Limiting Gait Function Factors Limiting Gait Function Decreased Activity Tolerance Decreased Strength M5 PT-IP Objective Assessments Start: 11/02/17 16:49 Freq: Status: Active Protocol: Document 11/03/17 11:25 RCC (Rec: 11/03/17 12:51 RCC [id number]) Orientation Orientation/Cognition Level of Alertness Alert Orientation Name Birthday Date Place Gross Range of Motion Upper Extremity ROM Impairments B shoulder flexion to 150 deg. Strength Lower Extremity Strength Assessment Left Impaired Hip flexion 4/5 Knee extension 4/5, flexion 3+/5 Comments Strength Comments LLE weakness appears to be mainly due to pain Coordination Assessment Gross Coordination Gross Coordination WNL Sensation Assessment Sensation Gross Sensation WNL Comments Sensation Comments pt did c/o B toe numbness sitting on EOB, but WNL in supine M6 PT-IP Treatment Start: 11/02/17 16:49 Freq: Status: Active Protocol: Document 11/13/17 11:30 GGD (Rec: 11/13/17 11:45 GGD [id number]) Physical Therapy Treatment Exercises Exercises Ankle Pumps Short Arc Quads Education Education Provided Safety M7 PT-IP Assessment and Plan Start: 11/02/17 16:49 Freq: Status: Active Protocol: Document 11/13/17 11:30 GGD (Rec: 11/13/17 11:45 GGD [id number]) PT Summary Assessment and Plan Summary Assessment Summary Pt need assist with bed mobility. Improved with sit to stand from bed. She sill below base line with mobility. Frequency of Treatment Frequency Of Treatment Once a Day Treatment Plan Other Recommendations and Next Treatment progress gait distance, sit to Focus stand, balance Recommendations To Nursing Amount of Assist Needed 1 Person Assist Discharge Recommendations PT Discharge Recommendations SNF Rehab
--- NOTE | 2017-11-13 11:47 | P.PN_ITS ---
Subjective Date Patient Seen: 11/13/17 Time Patient Seen: 11:36 Interval history: At approximately 8:00 p.m. last night the patient complained of chest palpitations and her heart beating fast and feeling anxious. Her pulse at that time was 130 and her blood pressure was also elevated. The on- call provider was notified and was the patient was given 120 mg diltiazem. Her daily dose of diltiazem was increased to 240 q.a.m. the patient is otherwise without complaints. Exam Vital Signs (past 8 hours): - 11/13/17 04:51 11/13/17 07:00 11/13/17 08:19 Temperature 97.9 F 98.0 F Pulse Rate 64 71 Respiratory Rate 18 16 Blood Pressure 153/81 H 159/61 H Pulse Oximetry 95 97 95 Oxygen Delivery Method Room Air Oxygen Flow Rate 0 Narrative Exam Narrative: cooperative and comfortable Nutritional Appearance: overweight Orientation: alert and awake. She is oriented to place and time and does remember me by name. Other: Patient appears to have underlying dementia HENKY Head: normal to inspection, normocephalic and atraumatic Eyes General: appearance normal, both eyes and all related structures Pupils: PERRL and pupil size (2.0 mm) Neck Neck: normal visual inspection and supple Other: No JVD or lymphadenopathy Chest Chest: normal inspection of the chest Resp Effort & Inspection: normal respiratory effort and able to speak in complete sentences Auscultation: clear to auscultation bilaterally Other: On room air Cardio Rhythm: abnormal rhythm (Atrial fibrillation) Heart Sounds: S1 normal and S2 normal Other: 3/6 systolic murmur heard best over right sternal border. GI Inspection: normal to inspection and obesity Palpation: soft Auscultation: normal bowel sounds Other: Nontender to palpation Other: Cloudy, foul-smelling Back/Spine/Pelvis Other: No complaints of hip pain Skin General: No rashes. She does have a large right arm ecchymotic area from pre- hospital fall. She has less complaints of pain at an old IV site on her left wrist which was treated with antibiotic ointment and a dressing. The site appears less inflamed today. The remainder of her skin is dry skin and warm. Neuro General: alert and awake Speech: speech normal Motor: muscle tone normal throughout Sensory Exam: no sensory deficits noted Extrem General: normal to inspection, capillary refill normal and no pedal edema Psych Appearance: grossly normal Speech and Movement: speech and movement normal Mood: congruent mood Affect: normal affect Attitude: cooperative Other: She appears awake and alert and is less confused today about sequencing of toileting tasks. There are no focal sensory or motor deficits. Objective Labs Result Diagrams: 11/08/17 05:31 11/08/17 05:31 Labs: Laboratory Results - last 24 hr 11/12/17 11:00 Urine Color Yellow Urine Appearance Cloudy Urine pH 6.0 Ur Specific [place] <=1.005 Urine Protein Negative Urine Glucose (UA) 3+ Urine Ketones Negative Urine Occult Blood 1+ H Urine Nitrate Negative Urine Bilirubin Negative Urine Urobilinogen 0.2 Ur Leukocyte Esterase 2+ H Urine RBC 5-10/hpf H Urine WBC >100/hpf H Ur Squamous Epith Cells 0-1 /hpf Urine Bacteria Many (>30) H Ur Culture Indicated? Specimen cultured Micro UA Comment Not Reportable Assessment & Plan Plan: Assessment/Plan Narrative: 1. Ground level fall with weakness she evidently has a history of falls and has been unable to get back up the this time. Seems to be slowly improving over the past week. She is without hip pain today. She is walking approximately 200 ft with physical therapy and is able to ambulate with a walker to the bathroom with assistance. Physical therapy and Occupational therapy will continue working with her. 2. She continues to have a.c. fingerstick glucoses in the high 100 to mid 300 range. Her evening long-acting insulin was increased to 50 units. She is being supplemented with NovoLog. 3. AFib: The on-call provider was called in the evening to be notified of her heart rate being 130 with an elevated blood pressure. She was given 120 of diltiazem and her daily dose was increased to 240 q.a.m.. She has not had any other complaints of palpitations or fast heart rates since last evening. She remains an irregular rhythm with a heart rate in the 70s to low 80s. On chronic anticoagulation. Her Cardizem and Xarelto have been continued. 4. Hypertension: She has been mildly hypertensive over the past 24 hr with blood pressures ranging from 149-180 systolic to 68-80 diastolic. She remains on losartan b.i.d. 5. Dementia: Patient appears to have underlying dementia which may have surfaced during this acute hospitalization. Her Tupman score last week was . Her short-term memory appears to be improving. According to speech therapy , she appears to not have safe swallowing behaviors at this point and will need one-to-one supervision with all intake. She also needs assistance with medication administration, and activities of daily living. She continues to be a great risk for falls if not assisted with ambulation. She is not a risk for climbing out of bed or out of the chairs with assistance. 6. Bacteriuria, asymptomatic UTI: Staff was complaining of foul-smelling and cloudy urine. Urinalysis was sent revealing greater than 100 WBCs, greater than 30 bacteria, 2+ esterase. Patient is asymptomatic, afebrile. 7. Code status she desires to be DNR 8. Disposition: Mrs. Rosario's family and care management are working together to come up with a safe discharge plan. She will remain in the hospital until evaluated by Medicaid to see if she can qualify for long-term facility/penitentiary/adult family living. [facility] performed a bedside assessment yesterday afternoon. The [id number]'s looking for placement at [facility] in [place]. Will await bed placement. Quality Quality VTE Deep Vein Thrombosis/Pulmonary Embolism Present on Admission: No
--- NOTE | 2017-11-13 12:22 | OT.IP.TRT ---
Occupational Therapy Treatment Note M2 OT-IP Current Condition Start: 11/04/17 12:43 Freq: Status: Active Protocol: Document 11/04/17 11:09 ADH (Rec: 11/04/17 13:11 ADH [id number]) Occupational Therapy Current Condition Current Condition Evaluation Date 11/04/17 Treatment Diagnosis confusion Diagnosis Onset Date 11/03/17 Post Operative Precautions Other Precautions falls M3 OT- IP Subjective and Pain Start: 11/04/17 12:43 Freq: Status: Active Protocol: Document 11/13/17 12:02 [facility] (Rec: 11/13/17 12:22 [facility] [id number]) OT- Subjective Occupational Therapy Visit Type Type Treatment Note Visit Start Time 11:25 Visit Stop Time 12:00 Total Visit Minutes 35 Occupational Therapy Visit Comments Patient Comments Pt cooperative and willing to do therapy. OT Pain Assessment Pain When Pain Assessed During Mobility Pain Present Pain Present Denied Pain M4 OT- IP ADL's Start: 11/04/17 12:43 Freq: Status: Active Protocol: Document 11/13/17 12:02 [facility] (Rec: 11/13/17 12:22 [facility] [id number]) OT ADL-Grooming General Evaluation Grooming Ability Standby Assistance Areas Needing Assistance Retrieving/Set-up of Grooming Items Combing/Brushing Hair Comments OT Grooming Comments Pt to able to stand 10 minutes for grooming needs. Pt needing increased time to do all tasks but able to do so with completeness. OT ADL-Oral Care General Eval Oral Care Ability Standby Assistance Areas of Assistance Brushing Teeth Devices Oral Care Devices Toothbrush M6 OT- IP Functional Cognition Start: 11/04/17 12:43 Freq: Status: Active Protocol: Document 11/13/17 12:02 [facility] (Rec: 11/13/17 12:22 [facility] [id number]) Cognitive Factors Limiting Selfcare Function Cognitive Ability Level of Alertness Alert Patient Orientation Name Place Attention Span Ability Capable of Focused Attention Unable to Sustain Attention Ability to Follow Commands Able to Follow One Step Commands Memory Description Short Term Impaired Problem Solving Ability Needs Assist to Identify Solutions Executive Function Ability Unable to Filter Distractions Cognitive Comments Cognitive Assessment Comments Pt doing better to sequence for ADL's today. Still needing vc for safety from sit to stand, hand placement and to scoot forwards. M7 OT- IP Mobility and Balance Start: 11/04/17 12:43 Freq: Status: Active Protocol: Document 11/13/17 12:02 [facility] (Rec: 11/13/17 12:22 [facility] [id number]) OT-Transfer Assessment Sit to and From Stand Sit to and from Stand Standby Assistance Transfers Transfer Ability Contact Guard Assistance Technique Transfer Destination Chair Toilet Transfer Technique Stand Step Pivot Devices Transfer Assistive Devices Gait Belt Front Wheeled Walker Comments Mobility Comments Pt improved today from MODA to CGA to SBA for mobility needs . OT- Gait Assessment Gait Gait Assistance Required: Standby Assistance Distance (Feet) (feet) 35 Assistive Devices Assistive Device Gait Belt Front Wheeled Walker Comments Gait Ability Comments Better balance today. Able to come from sit to stand 7 reps with SBA and MIN vc for safety . OT- Balance Assessment Sitting Balance and Reactions Static Sitting Balance Ability Good Dynamic Sitting Balance Ability Good Standing Balance and Reactions Static Standing Balance Ability Good Dynamic Standing Balance Ability Fair M8 OT- IP Objective Assessments Start: 11/04/17 12:43 Freq: Status: Active Protocol: Document 11/04/17 11:09 [facility] (Rec: 11/04/17 13:11 [facility]H [id number]) OT Gross Range of Motion Upper Extremity Range of Motion Assessment Within Functional Limits ROM Impairments Pt with difficulty following ROM demonstration, mild perseveration observed. 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 Pt reported pain in R elbow with MMT testing. OT- Coordination Assessment Upper Extremity Finger Tapping Test Within Functional Limits M9 OT- IP Assessment and Plan Start: 11/04/17 12:43 Freq: Status: Active Protocol: Document 11/13/17 12:02 [facility] (Rec: 11/13/17 12:22 [facility] [id number]) OT Summary Assessment and Plan Potential Rehabilitation Potential Good Summary OT Impairments Balance Functional Cognition Functional Mobility Dressing Toileting Bathing Toilet Transfers Shower Transfers Progress Towards Goals Slow Progress due to Activity Tolerance Slow Progress due to Cognition Assessment Summary Pt doing better today, however due to decreased cognition continues to need supervision for needs especailly for safety. Goals Grooming Goal Independent Dressing Goal Standby Assistance Toileting Goal Standby Assistance Bathing Goal Standby Assistance Toilet Transfer Goal Standby Assistance Shower Transfer Goal Contact Guard Assistance Days to Meet Goals 5 Frequency of Treatment Frequency Of Treatment Once a Day Treatment Plan OT Treatment Plan ADL Training Functional Mobility Patient/Family Education Discharge Planning Discharge Recommendations OT Discharge Recommendations Home with 10/12 Assist SNF Rehab
--- NOTE | 2017-11-13 12:23 | OT.IP.TRT ---
Occupational Therapy Treatment Note M2 OT-IP Current Condition Start: 11/04/17 12:43 Freq: Status: Active Protocol: Document 11/04/17 11:09 [facility] (Rec: 11/04/17 13:11 [facility] [id number]) Occupational Therapy Current Condition Current Condition Evaluation Date 11/04/17 Treatment Diagnosis confusion Diagnosis Onset Date 11/03/17 Post Operative Precautions Other Precautions falls M3 OT- IP Subjective and Pain Start: 11/04/17 12:43 Freq: Status: Active Protocol: Document 11/13/17 12:02 [facility] (Rec: 11/13/17 12:22 [facility] [id number]) OT- Subjective Occupational Therapy Visit Type Type Treatment Note Visit Start Time 11:25 Visit Stop Time 12:00 Total Visit Minutes 35 Occupational Therapy Visit Comments Patient Comments Pt cooperative and willing to do therapy. OT Pain Assessment Pain When Pain Assessed During Mobility Pain Present Pain Present Denied Pain M4 OT- IP ADL's Start: 11/04/17 12:43 Freq: Status: Active Protocol: Document 11/13/17 12:02 [facility] (Rec: 11/13/17 12:22 [facility] [id number]) OT ADL-Grooming General Evaluation Grooming Ability Standby Assistance Areas Needing Assistance Retrieving/Set-up of Grooming Items Combing/Brushing Hair Comments OT Grooming Comments Pt to able to stand 10 minutes for grooming needs. Pt needing increased time to do all tasks but able to do so with completeness. OT ADL-Oral Care General Eval Oral Care Ability Standby Assistance Areas of Assistance Brushing Teeth Devices Oral Care Devices Toothbrush M6 OT- IP Functional Cognition Start: 11/04/17 12:43 Freq: Status: Active Protocol: Document 11/13/17 12:02 [facility] (Rec: 11/13/17 12:22 [facility] [id number]) Cognitive Factors Limiting Selfcare Function Cognitive Ability Level of Alertness Alert Patient Orientation Name Place Attention Span Ability Capable of Focused Attention Unable to Sustain Attention Ability to Follow Commands Able to Follow One Step Commands Memory Description Short Term Impaired Problem Solving Ability Needs Assist to Identify Solutions Executive Function Ability Unable to Filter Distractions Cognitive Comments Cognitive Assessment Comments Pt doing better to sequence for ADL's today. Still needing vc for safety from sit to stand, hand placement and to scoot forwards. M7 OT- IP Mobility and Balance Start: 11/04/17 12:43 Freq: Status: Active Protocol: Document 11/13/17 12:02 [facility] (Rec: 11/13/17 12:22 [facility] [id number]) OT-Transfer Assessment Sit to and From Stand Sit to and from Stand Standby Assistance Transfers Transfer Ability Contact Guard Assistance Technique Transfer Destination Chair Toilet Transfer Technique Stand Step Pivot Devices Transfer Assistive Devices Gait Belt Front Wheeled Walker Comments Mobility Comments Pt improved today from MODA to CGA to SBA for mobility needs . OT- Gait Assessment Gait Gait Assistance Required: Standby Assistance Distance (Feet) (feet) 35 Assistive Devices Assistive Device Gait Belt Front Wheeled Walker Comments Gait Ability Comments Better balance today. Able to come from sit to stand 7 reps with SBA and MIN vc for safety . OT- Balance Assessment Sitting Balance and Reactions Static Sitting Balance Ability Good Dynamic Sitting Balance Ability Good Standing Balance and Reactions Static Standing Balance Ability Good Dynamic Standing Balance Ability Fair M8 OT- IP Objective Assessments Start: 11/04/17 12:43 Freq: Status: Active Protocol: Document 11/04/17 11:09 [facility] (Rec: 11/04/17 13:11 [facility] [id number]) OT Gross Range of Motion Upper Extremity Range of Motion Assessment Within Functional Limits ROM Impairments Pt with difficulty following ROM demonstration, mild perseveration observed. 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 Pt reported pain in R elbow with MMT testing. OT- Coordination Assessment Upper Extremity Finger Tapping Test Within Functional Limits M9 OT- IP Assessment and Plan Start: 11/04/17 12:43 Freq: Status: Active Protocol: Document 11/13/17 12:02 [facility] (Rec: 11/13/17 12:22 [facility] [id number]) OT Summary Assessment and Plan Potential Rehabilitation Potential Good Summary OT Impairments Balance Functional Cognition Functional Mobility Dressing Toileting Bathing Toilet Transfers Shower Transfers Progress Towards Goals Slow Progress due to Activity Tolerance Slow Progress due to Cognition Assessment Summary Pt doing better today, however due to decreased cognition continues to need supervision for needs especially for safety. Goals Grooming Goal Independent Dressing Goal Standby Assistance Toileting Goal Standby Assistance Bathing Goal Standby Assistance Toilet Transfer Goal Standby Assistance Shower Transfer Goal Contact Guard Assistance Days to Meet Goals 5 Frequency of Treatment Frequency Of Treatment Once a Day Treatment Plan OT Treatment Plan ADL Training Functional Mobility Patient/Family Education Discharge Planning Discharge Recommendations OT Discharge Recommendations Home with 10/12 Assist SNF Rehab
--- NOTE | 2017-11-13 12:56 | CM.DPC ---
Addendum entered by Genet Ferrari LPN 11/14/17 07:41: Received calls late yesterday afternoon from Annie and Joanna, both accepting pt. As per choice: plan: [facility], likely today and once medicaid/provider one is confirmed by the snf. Joanna planned to call Leonora re this if she or her team had any questions. Marley was updated: she will take her mother to the snf this afternoon. Will follow closely to facilitate. Original Note: DCP: continued: case again received and EMR from last few days reviewed. Checked in on pt, she appears comfortable. Smiles and waves hello. Called Leonora Ding: [facility] RN senior consultant. She confirmed her assessment is complete. Says MEHDI Roach was present for this and she agrees with Marley that a snf/LTC setting, primarily because of the IDDM management, is indicated. She states Marley identified [facility] or [facility] as choice. She states the financial piece is in place and she will fax the assessment to office. She notes: there should be no problems once an accepting facility is identified. Called MEHDI Roach. She confirms above. Requests that pt remain on list for [facility] in case a medicaid bed does open (is aware that at this point there are no beds in the foreseeable future, per Susanna). Left for Susanna/[facility] now re this request. Marley would like [facility] as first choice as pt's spouse was there for about 4 years. [facility] is second (we just are not familiar with the setting). VM is now left for Joanna/[facility] re referral. Will fax clinicals for review. Spoke with Annie/[facility]. She says she will look closely at her medicaid population and confer with her finance administrator Harry to see if they can accommodate pt. Will fax clinicals for review. Marley is updated and is encouraged to tour [facility]. She says she will start with on-line reviews.
[2017-11-13] MEDS: INSULIN GLARGINE 100 UNIT/ML 3ML PEN 50 UNIT SUBCUT (20:30)
[2017-11-14 00:07] VITALS: BP 140/72; PULSE 63; RESP 18; TEMP 36.6; O2SAT 96
[2017-11-14] MEDS: INSULIN ASPART 100 UNIT/ML INSULN PEN SUBCUT ×2 (04:10→12:37)
--- NOTE | 2017-11-14 04:21 | PC.NURSE ---
7015 [address] RUBIO on-call to notify of cbg >350. call returned by Dr. Mai w/order for insulin coverage per pt's existing sliding scale for novolog aspart; for cbg of 363 in time frame of [id number] dose is 10units, given via insulin pen sq in L upper abd per pt preference.
[2017-11-14 04:33] VITALS: BP 163/70; PULSE 75; RESP 18; TEMP 36.7; O2SAT 94
[2017-11-14 08:00] VITALS: BP 137/67; PULSE 68; RESP 14; TEMP 36.7; O2SAT 95
[2017-11-14] MEDS: INSULIN ASPART 100 UNIT/ML INSULN PEN 10 UNIT SUBCUT ×2 (08:34→12:27)
[2017-11-14] MEDS: ACETAMINOPHEN 325 MG TABLET PO (08:35)
[2017-11-14] MEDS: NEOMYCIN/POLYMYXIN/BACITRA UD OINT 1 EACH TOP (08:35)
[2017-11-14] MEDS: VENLAFAXINE ER 75 MG CAP 150 MG PO (08:36)
[2017-11-14] MEDS: dilTIAZem CD 240 MG CAP PO (08:36)
[2017-11-14] MEDS: OXYBUTYNIN 5 MG TABLET PO (08:36)
[2017-11-14] MEDS: LOSARTAN 50 MG TABLET PO (08:36)
[2017-11-14] MEDS: RIVAROXABAN 10 MG TABLET 20 MG PO (08:37)
--- NOTE | 2017-11-14 09:24 | PM.DS.1 ---
History of Present Illness Date Patient Seen: 11/14/17 Time Patient Seen: 09:25 Chief complaint: GLF Narrative: The patient is a 82-year-old female who lives alone. She was found all on the floor the morning of admission by neighbor. She said she slipped out of bed last night literally she was she is trying to stand up and then her feet went out from under her she slid down the bed. She played different unknown amount of time. Her back is hurting. She has no other complaints. She is on Pradaxa and does have AFib and is currently in AFib. She denies hitting her head there is no sign of head trauma. She is able to move all of her extremities. MD Complaint: generalized weakness Discharge Providers Date of admission: 11/02/17 16:48 Consults: 11/02/17 16:09 Consult to Physical Therapy Evaluate & Treat Comment: Physician Instructions: Evaluate and Treat 11/03/17 06:16 Consult to Police Worker Routine Comment: discharge planning 11/03/17 12:38 Consult to Speech Therapy Evaluate & Treat Comment: NPO for increased coughing with meal Physician Instructions: Evaluate and treat 11/04/17 08:15 Consult to Occupational Therapy Evaluate & Treat Comment: Physician Instructions: Evaluate and treat Discharge provider: VITALIY Nichols Summary Discharge Diagnosis: 1. Ground level fall with weakness 2. Diabetes type 2 (Chronic) 3. Atrial fibrillation (Chronic) 4. Hypertension (Chronic) 5. Dementia Hospital Course: This is a summary of a 12 day hospitalization for this pleasant 82-year-old patient who came in with weakness after suffering a ground level fall at home. She was evaluated for source of her weakness. She did not meet the criteria for inpatient admission and is placed on observation. Head CT and brain MRI were negative for acute infarct findings. EKG revealed atrial fibrillation with controlled ventricular response and no further dysrhythmias. Glucose on admission was elevated over 450. No other electrolyte abnormalities. She was seen in evaluated by Physical therapy and Occupational therapy and speech therapy. She has continued to improve in her ambulation and strength during her hospitalization is now able to walk more than 200 ft. with 1 person assist. Her type 2 diabetes has been managed by a.c. meal supplementation and increasing her baseline Lantus to 50 units at bedtime. She has remained on her home medications of diltiazem and Xarelto for her atrial fibrillation and has had no need for adjustment of these medications as she reads remained in atrial fibrillation with a controlled ventricular response in the 70s to 80s. She did have 1 episode where her heart rate went into the 130s at which time she felt she had chest palpitations. She denied any chest pain, shortness of breath, diaphoresis. Her diltiazem was increased to 240 q.day. Her hypertension has been managed with home medications as well but an increase in her diastolic pressure in the 90s was observed so she was increased on her losartan to b.i.d. schedule. It is believed that she has a baseline dementia that may been uncovered by this hospitalization. Her Seward score was 11/30. She has been awake alert during this hospitalization but continues to be confused as to what preceded her hospitalization had and has short-term memory loss. Her mentation has improved over the past week and her short-term memory has also improved. She also has bacteriuria, which is asymptomatic, and we elected not to treat her with antibiotics at this time. There have been frequent communications between [facility] care and the medical power of ip attorney, her daughter, regarding placement after discharge. The [id number] who is power of ip attorney felt that it was unsafe for this patient to go back home to her home environment due to an increased fall risk and inability to care for self, and we concur. Medicaid was consulted for an evaluation and placement in extended care facility. She will be discharged to [facility] [place] today. Her code status remains to be DNR. Status at Discharge Status at Discharge Functional status at discharge: uses cane/walker Overall status at discharge: patient is back to baseline Time Spent with Patient Less than 30 minutes Exam Vital Signs (past 8 hours): - 11/14/17 04:33 Temperature 98.1 F Pulse Rate 75 Respiratory Rate 18 Blood Pressure 163/70 H Pulse Oximetry 94 Oxygen Delivery Method Room Air Oxygen Flow Rate 0 Narrative Exam Narrative: General: cooperative and comfortable Nutritional Appearance: overweight Orientation: alert and awake Other: Patient appears to have underlying dementia [facility] Head: normal to inspection, normocephalic and atraumatic Eyes General: appearance normal, both eyes and all related structures Pupils: PERRL and pupil size (2.0 mm) Neck Neck: normal visual inspection and supple Other: No JVD or lymphadenopathy Chest Chest: normal inspection of the chest Resp Effort & Inspection: normal respiratory effort and able to speak in complete sentences Auscultation: clear to auscultation bilaterally Other: On room air Cardio Rhythm: abnormal rhythm (Atrial fibrillation) Heart Sounds: S1 normal and S2 normal Other: 3/6 systolic murmur heard best over right sternal border. GI Inspection: normal to inspection and obesity Palpation: soft Auscultation: normal bowel sounds Other: Nontender to palpation Other: Unremarkable Back/Spine/Pelvis: Unremarkable Skin General: She does have a large ecchymotic area on her right elbow region secondary to her fall at home. She also has redness in the area of an old IV site on the left wrist region. Neuro General: alert and awake Speech: speech normal Motor: muscle tone normal throughout Sensory Exam: no sensory deficits noted Extrem General: normal to inspection, capillary refill normal and no pedal edema Psych Appearance: grossly normal Speech and Movement: speech and movement normal Mood: congruent mood Affect: normal affect Attitude: cooperative Other: She appears awake and alert and to be back to her baseline. There are no focal sensory or motor deficits. Objective Labs Result Diagrams: 11/08/17 05:31 11/08/17 05:31 Labs: PROCEDURE: MR STROKE Pre- and post-contrast brain MRI, non-contrast brain MR angiogram, pre- and postcontrast neck MR angiogram INDICATIONS: stroke symptoms TECHNIQUE: Brain: Noncontrast axial T1 spin echo, axial T2 fast spin echo, sagittal and axial FLAIR, coronal T2 fast spin echo, axial gradient echo, axial diffusion and ADC through the brain. After the administration of contrast, axial 3D VIBE of the cranial vasculature and brain. Brain MRA: Non-contrast 3-D time of flight MR angiogram, with multiple bfnucmp-xckigajwn-uggjghcpyc (MIP) reformats performed. Neck MRA: Axial and sagittal TruFISP through the neck. Coronal dynamic MR angiogram during administration of contrast in the arterial and venous phases, with 3-dimenstional tfazqve-alpcuxotc-wjohyvbzra (MIP) reformats constructed from subtraction images. COMPARISON: [facility], US, CAROTID ARTERY DOPPLER BILAT, 01/06/2016, 18:13. [facility], MR, STROKE PROTOCOL, 01/06/2016, 12:57. [facility], CT, HEAD WITHOUT CONTRAST, 03/22/2016, 20:13. [facility], CT, HEAD WITHOUT CONTRAST, 06/11/2017, 14:40. [facility], CT, CT HEAD/BRAIN WO CON, 11/02/2017, 14:04. FINDINGS: Image quality: Good. BRAIN: CSF spaces: Ventricles are normal in size and shape. Basal cisterns are patent. No extra-axial fluid collections. Brain: No intracranial bleeds or mass effects. Pefiffer-white matter interface is normal. Diffusion weighted images show no acute ischemic insults. There are bilateral basal ganglia and right frontal chronic ischemic infarcts as before. There is also a chronic lacunar infarct in the right side of the valente. Age related cerebral atrophy and chronic deep white matter ischemic changes again noted. Brainstem appears normal. Normal intravascular flow voids are present. No abnormal intracranial enhancement. Skull and face: Calvarial marrow signal is normal. Orbits appear normal. Sinuses: Sinuses and mastoids are clear. BRAIN MR ANGIOGRAM: Anterior circulation: There is considerable signal loss on the noncontrast enhanced images of the intracranial vessels, which appear intact on post contrast views. There may be a small focal stenosis in the left M1 segment. Intracranial internal carotid arteries are patent with atheromatous changes left greater than right. The flow within the A1 segment of the paired anterior cerebral arteries is diminished and possibly atretic on the right. The flow within the middle cerebral arteries is normal and symmetric postcontrast, possible small stenosis on the left in the M1 segment. The anterior communicating artery is not seen. No occlusions, or aneurysms. Posterior circulation: The visualized portions of the vertebral arteries demonstrate normal caliber, and join to form a normal appearing basilar artery. The flow within the posterior cerebral arteries is normal and symmetric. No stenoses, occlusions, or aneurysms. NECK MR ANGIOGRAM: Carotids: Great vessels demonstrate a conventional anatomy as they arise from the aortic arch. The origins of the common carotid arteries appear patent. The calibers and courses of both common carotid arteries are normal. The bifurcation regions again show a 70% stenosis at the origin of the right ICA in a less than 50% stenosis on the left. Both external carotid arteries show stenoses at the origins.. The internal carotid arteries demonstrate normal course and caliber. Posterior circulation: The origins of the vertebral arteries appear patent. There is ostial stenosis at the origin of the right vertebral. The proximal left vertebral is tortuous, as the origin not well seen. More superior portions of both vertebral arteries demonstrate normal course and caliber, and join to form a normal appearing basilar artery. Miscellaneous: Subclavian arteries appear patent. Pre-contrast images through the neck show no soft tissue abnormalities. IMPRESSION: BRAIN MRI: 1. No acute infarct is identified. 2. Age-related atrophy and chronic deep white matter ischemic changes. 3. Several chronic lacunar infarcts are again evident in the right frontal lobe, both basal ganglia and right valente BRAIN MR ANGIOGRAM: Noncontrast intracranial images are suboptimal with considerable signal dropout. Atheromatous changes in the carotid siphons and probable focal 50% stenosis in the proximal left middle cerebral artery NECK MR ANGIOGRAM: 1. Estimated 70% stenosis origin of the right internal carotid artery at the bifurcation, unchanged. Minimal narrowing at the origin of the left ICA. 2. Apparent stenosis at the origin of the right vertebral artery with tortuosity in the proximal left vertebral. Left vertebral may be dominant. Dictated by: Kelechi Mcmahan M.D. on 11/04/2017 at 11:55 Approved by: Kelechi Mcmahan M.D. on 11/04/2017 at 12:16 PROCEDURE: CT HEAD/BRAIN WO CON INDICATIONS: found down on Xarelto TECHNIQUE: Noncontrast 4.5 mm thick angled axial sections acquired from the foramen magnum to the vertex, with coronal and sagittal reformats. For radiation dose reduction, the following was used: automated exposure control, adjustment of mA and/or kV according to patient size. COMPARISON: [facility], CT, HEAD WITHOUT CONTRAST, 06/11/2017, 14:40. [facility], CT, HEAD WITHOUT CONTRAST, 03/22/2016, 20:13. [facility], MR, STROKE PROTOCOL, 01/06/2016, 12:57. FINDINGS: Image quality: Excellent. CSF spaces: Basal cisterns are patent. No extra-axial fluid collections. The ventricles are symmetric in size and shape. Brain: No intracranial bleeds or masses. There is cerebral volume loss for age, with resultant ventricular and sulcal prominence. There are periventricular and deep white matter chronic small vessel ischemic changes. Old basal ganglia small lacunar infarcts versus perivascular spaces are stable. There is intracranial internal carotid artery and vertebral artery atherosclerosis. Skull and face: Calvarium and visualized facial bones appear intact, without suspicious lesions. Sinuses: Visualized sinuses and mastoids are clear. IMPRESSION: No acute intracranial disease process. No intracranial hemorrhage. Dictated by: Yanique Schulte MD, PhD on 11/02/2017 at 14:58 Approved by: Yanique Schulet MD, PhD on 11/02/2017 at 15:00 Discharge Plan Discharge Plan Patient Disposition: SNF Transfer to: [facility], [facility] Transportation: Facility vehicle Discharge comment: Patient will need continued occupational therapy, physical therapy, speech therapy. I certify the postop hospital fpc care is medically necessary on a continuing basis for any conditions for which he/ she received care during this hospitalization.: Yes The receiving facility has agreed to accept transfer and provide medical treatment.: Yes Discharge Health Status Multidrug resistant organism: No MDRO MDRO Verified by culture: Yes Date verified: 11/12/17 Precautions: [place] Provider Discharge Instructions Diet: Carb-consistent/Diabetic Food texture: Soft Diet comment: Mechanical soft Activity: Up with assistance. Must use walker. Oxygen: Room air [facility] Reason for rehabilitation: Recovery r/t decondition Rehab type: Physical therapy, Occupational therapy and Speech therapy Discharge Data Attending Provider: Sudhir Alva Admit Date/Time: 11/02/17 16:48 Quality VTE Deep Vein Thrombosis/Pulmonary Embolism Present on Admission: No
--- NOTE | 2017-11-14 09:35 | P.DS_ITS ---
History of Present Illness Date Patient Seen: 11/14/17 Time Patient Seen: 09:25 Chief complaint: GLF Narrative: The patient is a 82-year-old female who lives alone. She was found all on the floor the morning of admission by neighbor. She said she slipped out of bed last night literally she was she is trying to stand up and then her feet went out from under her she slid down the bed. She played different unknown amount of time. Her back is hurting. She has no other complaints. She is on Pradaxa and does have AFib and is currently in AFib. She denies hitting her head there is no sign of head trauma. She is able to move all of her extremities. MD Complaint: generalized weakness Discharge Providers Date of admission: 11/02/17 16:48 Consults: 11/02/17 16:09 Consult to Physical Therapy Evaluate & Treat Comment: Physician Instructions: Evaluate and Treat 11/03/17 06:16 Consult to Order Schedule Clerk Routine Comment: discharge planning 11/03/17 12:38 Consult to Speech Therapy Evaluate & Treat Comment: NPO for increased coughing with meal Physician Instructions: Evaluate and treat 11/04/17 08:15 Consult to Occupational Therapy Evaluate & Treat Comment: Physician Instructions: Evaluate and treat Discharge provider: VITALIY Nichols Summary Discharge Diagnosis: 1. Ground level fall with weakness 2. Diabetes type 2 (Chronic) 3. Atrial fibrillation (Chronic) 4. Hypertension (Chronic) 5. Dementia Hospital Course: This is a summary of a 12 day hospitalization for this pleasant 82-year-old patient who came in with weakness after suffering a ground level fall at home. She was evaluated for source of her weakness. She did not meet the criteria for inpatient admission and is placed on observation. Head CT and brain MRI were negative for acute infarct findings. EKG revealed atrial fibrillation with controlled ventricular response and no further dysrhythmias. Glucose on admission was elevated over 450. No other electrolyte abnormalities. She was seen in evaluated by Physical therapy and Occupational therapy and speech therapy. She has continued to improve in her ambulation and strength during her hospitalization is now able to walk more than 200 ft. with 1 person assist. Her type 2 diabetes has been managed by a.c. meal supplementation and increasing her baseline Lantus to 50 units at bedtime. She has remained on her home medications of diltiazem and Xarelto for her atrial fibrillation and has had no need for adjustment of these medications as she reads remained in atrial fibrillation with a controlled ventricular response in the 70s to 80s. She did have 1 episode where her heart rate went into the 130s at which time she felt she had chest palpitations. She denied any chest pain, shortness of breath, diaphoresis. Her diltiazem was increased to 240 q.day. Her hypertension has been managed with home medications as well but an increase in her diastolic pressure in the 90s was observed so she was increased on her losartan to b.i.d. schedule. It is believed that she has a baseline dementia that may been uncovered by this hospitalization. Her Iron score was 11/30. She has been awake alert during this hospitalization but continues to be confused as to what preceded her hospitalization had and has short-term memory loss. Her mentation has improved over the past week and her short-term memory has also improved. She also has bacteriuria, which is asymptomatic, and we elected not to treat her with antibiotics at this time. There have been frequent communications between [facility] care and the medical power of admitted attorneys, her daughter, regarding placement after discharge. The [id number] who is power of admitted attorneys felt that it was unsafe for this patient to go back home to her home environment due to an increased fall risk and inability to care for self, and we concur. Medicaid was consulted for an evaluation and placement in extended care facility. She will be discharged to [facility] [place] today. Her code status remains to be DNR. Status at Discharge Status at Discharge Functional status at discharge: uses cane/walker Overall status at discharge: patient is back to baseline Time Spent with Patient Less than 30 minutes Exam Vital Signs (past 8 hours): - 11/14/17 04:33 Temperature 98.1 F Pulse Rate 75 Respiratory Rate 18 Blood Pressure 163/70 H Pulse Oximetry 94 Oxygen Delivery Method Room Air Oxygen Flow Rate 0 Narrative Exam Narrative: General: cooperative and comfortable Nutritional Appearance: overweight Orientation: alert and awake Other: Patient appears to have underlying dementia [facility] Head: normal to inspection, normocephalic and atraumatic Eyes General: appearance normal, both eyes and all related structures Pupils: PERRL and pupil size (2.0 mm) Neck Neck: normal visual inspection and supple Other: No JVD or lymphadenopathy Chest Chest: normal inspection of the chest Resp Effort & Inspection: normal respiratory effort and able to speak in complete sentences Auscultation: clear to auscultation bilaterally Other: On room air Cardio Rhythm: abnormal rhythm (Atrial fibrillation) Heart Sounds: S1 normal and S2 normal Other: 3/6 systolic murmur heard best over right sternal border. GI Inspection: normal to inspection and obesity Palpation: soft Auscultation: normal bowel sounds Other: Nontender to palpation Other: Unremarkable Back/Spine/Pelvis: Unremarkable Skin General: She does have a large ecchymotic area on her right elbow region secondary to her fall at home. She also has redness in the area of an old IV site on the left wrist region. Neuro General: alert and awake Speech: speech normal Motor: muscle tone normal throughout Sensory Exam: no sensory deficits noted Extrem General: normal to inspection, capillary refill normal and no pedal edema Psych Appearance: grossly normal Speech and Movement: speech and movement normal Mood: congruent mood Affect: normal affect Attitude: cooperative Other: She appears awake and alert and to be back to her baseline. There are no focal sensory or motor deficits. Objective Labs Result Diagrams: 11/08/17 05:31 11/08/17 05:31 Labs: PROCEDURE: MR STROKE Pre- and post-contrast brain MRI, non-contrast brain MR angiogram, pre- and postcontrast neck MR angiogram INDICATIONS: stroke symptoms TECHNIQUE: Brain: Noncontrast axial T1 spin echo, axial T2 fast spin echo, sagittal and axial FLAIR, coronal T2 fast spin echo, axial gradient echo, axial diffusion and ADC through the brain. After the administration of contrast, axial 3D VIBE of the cranial vasculature and brain. Brain MRA: Non-contrast 3-D time of flight MR angiogram, with multiple uufdsol-mimbbmnqv-ccjuwjbpbq (MIP) reformats performed. Neck MRA: Axial and sagittal TruFISP through the neck. Coronal dynamic MR angiogram during administration of contrast in the arterial and venous phases, with 3- dimenstional aekiwvq-kkrpimesb-qaxrxwhqyu (MIP) reformats constructed from subtraction images. COMPARISON: [facility], US, CAROTID ARTERY DOPPLER BILAT, 01/06/2016, 18: 13. [facility], MR, STROKE PROTOCOL, 01/06/2016, 12:57. [facility], CT, HEAD WITHOUT CONTRAST, 03/22/2016, 20:13. [facility], CT, HEAD WITHOUT CONTRAST, 2017, 14:40. [facility], CT, CT HEAD/BRAIN WO CON, 11/02/2017, 14:04. FINDINGS: Image quality: Good. BRAIN: CSF spaces: Ventricles are normal in size and shape. Basal cisterns are patent. No extra-axial fluid collections. Brain: No intracranial bleeds or mass effects. Pfeiffer-white matter interface is normal. Diffusion weighted images show no acute ischemic insults. There are bilateral basal ganglia and right frontal chronic ischemic infarcts as before. There is also a chronic lacunar infarct in the right side of the valente. Age related cerebral atrophy and chronic deep white matter ischemic changes again noted. Brainstem appears normal. Normal intravascular flow voids are present. No abnormal intracranial enhancement. Skull and face: Calvarial marrow signal is normal. Orbits appear normal. Sinuses: Sinuses and mastoids are clear. BRAIN MR ANGIOGRAM: Anterior circulation: There is considerable signal loss on the noncontrast enhanced images of the intracranial vessels, which appear intact on post contrast views. There may be a small focal stenosis in the left M1 segment. Intracranial internal carotid arteries are patent with atheromatous changes left greater than right. The flow within the A1 segment of the paired anterior cerebral arteries is diminished and possibly atretic on the right. The flow within the middle cerebral arteries is normal and symmetric postcontrast, possible small stenosis on the left in the M1 segment. The anterior communicating artery is not seen. No occlusions, or aneurysms. Posterior circulation: The visualized portions of the vertebral arteries demonstrate normal caliber, and join to form a normal appearing basilar artery. The flow within the posterior cerebral arteries is normal and symmetric. No stenoses, occlusions, or aneurysms. NECK MR ANGIOGRAM: Carotids: Great vessels demonstrate a conventional anatomy as they arise from the aortic arch. The origins of the common carotid arteries appear patent. The calibers and courses of both common carotid arteries are normal. The bifurcation regions again show a 70% stenosis at the origin of the right ICA in a less than 50% stenosis on the left. Both external carotid arteries show stenoses at the origins.. The internal carotid arteries demonstrate normal course and caliber. Posterior circulation: The origins of the vertebral arteries appear patent. There is ostial stenosis at the origin of the right vertebral. The proximal left vertebral is tortuous, as the origin not well seen. More superior portions of both vertebral arteries demonstrate normal course and caliber, and join to form a normal appearing basilar artery. Miscellaneous: Subclavian arteries appear patent. Pre-contrast images through the neck show no soft tissue abnormalities. IMPRESSION: BRAIN MRI: 1. No acute infarct is identified. 2. Age-related atrophy and chronic deep white matter ischemic changes. 3. Several chronic lacunar infarcts are again evident in the right frontal lobe , both basal ganglia and right valente BRAIN MR ANGIOGRAM: Noncontrast intracranial images are suboptimal with considerable signal dropout. Atheromatous changes in the carotid siphons and probable focal 50% stenosis in the proximal left middle cerebral artery NECK MR ANGIOGRAM: 1. Estimated 70% stenosis origin of the right internal carotid artery at the bifurcation, unchanged. Minimal narrowing at the origin of the left ICA. 2. Apparent stenosis at the origin of the right vertebral artery with tortuosity in the proximal left vertebral. Left vertebral may be dominant. Dictated by: Kelechi Mcmahan M.D. on 11/04/2017 at 11:55 Approved by: Kelechi Mcmahan M.D. on 11/04/2017 at 12:16 PROCEDURE: CT HEAD/BRAIN WO CON INDICATIONS: found down on Xarelto TECHNIQUE: Noncontrast 4.5 mm thick angled axial sections acquired from the foramen magnum to the vertex, with coronal and sagittal reformats. For radiation dose reduction, the following was used: automated exposure control, adjustment of mA and/or kV according to patient size. COMPARISON: [facility], CT, HEAD WITHOUT CONTRAST, 06/11/2017, 14:40. [facility], CT, HEAD WITHOUT CONTRAST, 03/22/2016, 20:13. [facility], MR, STROKE PROTOCOL, 01/06/2016, 12:57. FINDINGS: Image quality: Excellent. CSF spaces: Basal cisterns are patent. No extra-axial fluid collections. The ventricles are symmetric in size and shape. Brain: No intracranial bleeds or masses. There is cerebral volume loss for age , with resultant ventricular and sulcal prominence. There are periventricular and deep white matter chronic small vessel ischemic changes. Old basal ganglia small lacunar infarcts versus perivascular spaces are stable. There is intracranial internal carotid artery and vertebral artery atherosclerosis. Skull and face: Calvarium and visualized facial bones appear intact, without suspicious lesions. Sinuses: Visualized sinuses and mastoids are clear. IMPRESSION: No acute intracranial disease process. No intracranial hemorrhage. Dictated by: Yanique Schulte MD, PhD on 11/02/2017 at 14:58 Approved by: Yanique Schulte MD, PhD on 11/02/2017 at 15:00 Discharge Plan Discharge Plan Patient Disposition: SNF Transfer to: [facility], [facility] Transportation: Facility vehicle Discharge comment: Patient will need continued occupational therapy, physical therapy, speech therapy. I certify the postop hospital residential care is medically necessary on a continuing basis for any conditions for which he/ she received care during this hospitalization.: Yes The receiving facility has agreed to accept transfer and provide medical treatment.: Yes Discharge Health Status Multidrug resistant organism: No MDRO MDRO Verified by culture: Yes Date verified: 11/12/17 Precautions: [place] Provider Discharge Instructions Diet: Carb-consistent/Diabetic Food texture: Soft Diet comment: Mechanical soft Activity: Up with assistance. Must use walker. Oxygen: Room air [facility] Reason for rehabilitation: Recovery r/t decondition Rehab type: Physical therapy, Occupational therapy and Speech therapy Discharge Data Attending Provider: Sudhir Alva Admit Date/Time: 11/02/17 16:48 Quality VTE Deep Vein Thrombosis/Pulmonary Embolism Present on Admission: No
[2017-11-14 10:27] VITALS: O2SAT 95
--- NOTE | 2017-11-14 10:36 | PC.NURSE ---
Addendum entered by Lacey Brooks R.N. 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 Original Note: AM NOTE - awakens easily for breakfast, repositioned upright and able to feed self, some generalized discomfort, given 325mg po tylenol with meal this am, oriented to self only, cannot name location, later assisted x 1 person, slowly up from chair, tsf to bsc w/med formed stool, pericare performed,ret to bed with alarm set.
[2017-11-14 12:00] VITALS: BP 149/67; PULSE 68; RESP 16; TEMP 36.6; O2SAT 95
== END 2017-11-14 16:04 ==
LOC: ED 16:48 → AC 16:49
PROVIDERS: Nurse Practitioner Acute Care; Admitting Provider Internal Medicine; Emergency Provider Emergency Medicine; Visit Provider Internal Medicine
DX: R53.1 Weakness (principal); W19.XXXA Unspecified fall, initial encounter; I48.91 Unspecified atrial fibrillation; E11.9 Type 2 diabetes mellitus without complications; Z79.4 Long term (current) use of insulin; F41.9 Anxiety disorder, unspecified; E78.5 Hyperlipidemia, unspecified; I10 Essential (primary) hypertension; E03.9 Hypothyroidism, unspecified; G62.9 Polyneuropathy, unspecified; Z66 Do not resuscitate; Z91.81 History of falling
CPT/HCPCS: 36415; 70450; 70553; 72072; 73521; 80048; 80053; 81001; 82550; 82553; 82947; 82962; 83605; 84484; 85025; 85610; 85730; 87077; 87086; 87186; 92526; 92610; 93005; 96361; 96374; 97110; 97116; 97127; 97162; 97530; 97535; 99284; G0378; A9579